=== PATIENT | male | born 1950 | race Caucasian/White ===

== ENCOUNTER 2019-07-26 13:40 | Outpatient (CLI) | payer OTHER | END 2019-07-26 13:41 | disposition critical access hospital (66) | LOC: EMS 13:40 | PROVIDERS: ATTEND Surgery | DX: R50.9 Fever, unspecified (principal); R53.1 Weakness | CPT/HCPCS: A0425; A0429 ==

== ENCOUNTER 2019-07-26 14:13 | Inpatient (IN) | payer OTHER ==
[2019-07-26] MEDS ORDERED: ACETAMINOPHEN 325 MG TABLET PO STA (14:24)
--- NOTE | 2019-07-26 14:25 | ED Physician Documentation ---
History of Present Illness - Stated complaint Stated Complaint: FLU LIKE SX - History obtained from History obtained from: Patient (69-year-old gentleman with history of multiple myeloma and bladder cancer on long-term oral chemotherapy and steroids presents with a febrile illness. Per paramedics his whole family has been sick with a flulike or viral syndrome. He is a vague historian, is not sure whether he got sick yesterday or the day before. He denies any specific complaints other than chills. However he is not fully oriented. His is not here in initial evaluation but coffee sommelier tells me she is coming.) Review of Systems Unable to obtain: Confused PD PAST MEDICAL HISTORY - Allergies Allergies/Adverse Reactions: Allergies Allergy/AdvReac Type Severity Reaction Status Date / Time Sulfa (Sulfonamide Allergy Unknown Verified 07/26/19 14:23 Antibiotics) PD ED PE NORMAL - Vitals Vital signs reviewed: Yes - General General: Other (He is alert and oriented to person and place but not time or events.) - HEENT HEENT: PERRL, EOMI - Neck Neck: Supple, no meningeal sign, No bony TTP - Cardiac Cardiac: RRR, No murmur - Respiratory Respiratory: Other (Rhonchorous at the left base, nonlabored) - Abdomen Abdomen: Soft, Non tender - Back Back: No CVA TTP, No spinal TTP - Derm Derm: Normal color, Warm and dry - Extremities Extremities: Other (Moderate bilateral chronic appearing pedal edema, symmetric) - Neuro Neuro: No motor deficit, No sensory deficit Eye Opening: Spontaneous Motor: Obeys Commands Verbal: Confused GCS Score: 14 Results - Vitals Vitals: Vital Signs - 24 hr 07/26/19 07/26/19 07/26/19 14:23 14:26 14:56 Temperature 38.6 C H 38.6 C H 38.3 C H Heart Rate 94 94 88 Respiratory 14 14 16 Rate Blood Pressure 129/112 H 124/112 H 130/70 O2 Saturation 92 92 88 L 07/26/19 07/26/19 15:26 15:30 Temperature Heart Rate 88 86 Respiratory 16 16 Rate Blood Pressure 130/70 113/76 O2 Saturation 94 93 Oxygen O2 Source Nasal cannula Oxygen Flow Rate 2 - Labs Labs: Laboratory Tests 07/26/19 07/26/19 07/26/19 14:52 14:52 14:52 WBC 5.3 RBC 3.95 L Hgb 13.3 L Hct 38.7 L MCV 98.0 H MCH 33.7 H MCHC 34.4 RDW 13.9 Plt Count 54 L MPV 12.9 H Neut # (Auto) 4.3 Lymph # (Auto) 0.5 L [place] # (Auto) 0.5 Eos # (Auto) 0.0 Baso # (Auto) 0.0 Absolute Nucleated RBC 0.00 Nucleated RBC % 0.0 BUN 17 Creatinine 0.9 Estimated GFR (MDRD) 83 L Lactic Acid 3.6 H* Total Bilirubin 1.1 H AST 27 ALT 30 Alkaline Phosphatase 32 L Total Protein 7.0 Albumin 4.2 Globulin 2.8 Albumin/Globulin Ratio 1.5 Lipase 31 - Rads (name of study) 2v chest Radiology: EMP read contemporaneously (Right basilar nodular opacity probably consistent with pneumonia, follow-up advised.) PD MEDICAL DECISION MAKING - ED course ED course: 69-year-old gentleman presents modestly confused with clinical findings consistent with pneumonia, proven on chest x-ray. Also had some episodes of hypoxemia down to 88% on room air here. He was cultured up and given Rocephin and Zithromax. Spoke with Dr. Valente for admission at 3:30 PM. Departure - Departure Disposition: 66 [facility] DC/Xfer Clinical Impression: Pneumonia Qualifiers: Pneumonia type: due to unspecified organism Laterality: right Lung location: lower lobe of lung Qualified Code(s): J18.9 - Pneumonia, unspecified organism Condition: Serious
--- NOTE | 2019-07-26 14:55 | XRAY Report ---
Reason: cough fever Procedure Date: 07/26/2019 Accession Number: [id number] / [id number] Procedure: XR - Chest 2 View X-Ray CPT Code: 97913 Final Report FULL RESULT: EXAM: CHEST RADIOGRAPHY EXAM DATE: 07/26/2019 02:45 PM. CLINICAL HISTORY: Cough fever. COMPARISON: None. TECHNIQUE: 2 views. FINDINGS: Lungs/Pleura: Right medial basilar lung 0.7 cm nodular opacity seen. Surrounding airspace consolidation noted. Left lung is clear. No pleural effusion or pneumothorax. Mediastinum: Heart and mediastinal contours are unremarkable. Other: None. IMPRESSION: 1. Right basilar nodular opacity with surrounding consolidation may reflect pneumonia. Follow-up to radiographic resolution is recommended to exclude the possibility that the nodular opacity is malignancy. RADIA
[2019-07-26] MEDS ORDERED: cefTRIAXone 2 GM in SODIUM CHLORIDE 0.9% MINIBAG 100 ML IV STA (14:58)
[2019-07-26] MEDS ORDERED: AZITHROMYCIN INJ 500 MG in SODIUM CHLORIDE 0.9% 250 ML IV STA (14:58)
[2019-07-26 15:03] LABS: BASOPHILS % (AUTO) 0.2 %; EOSINOPHILS % (AUTO) 0.2 %; HGB - HEMOGLOBIN 13.3 g/dL (14.0-18.0); LYMPHOCYTES # (AUTO) 0.5 10^3/uL (1.5-3.5); LYMPHOCYTES % (AUTO) 9.6 %; MEAN CORPUSCULAR HEMOGLOBIN 33.7 pg (27.0-31.0); MEAN CORPUSCULAR HGB CONC 34.4 g/dL (32.0-36.0); MEAN PLATELET VOLUME 12.9 fL (7.4-11.4); MONOCYTES # (AUTO) 0.5 10^3/uL (0.0-1.0); MONOCYTES % (AUTO) 8.6 %; NEUTROPHILS # (AUTO) 4.3 10^3/uL (1.5-6.6); NEUTROPHILS % (AUTO) 80.7 %; PLT - PLATELET COUNT 54 10^3/uL (130-450); RED BLOOD COUNT 3.95 10^6/uL (4.70-6.10); RED CELL DISTRIBUTION WIDTH 13.9 % (12.0-15.0); WHITE BLOOD COUNT 5.3 x10^3/uL (4.8-10.8)
[2019-07-26 15:14] LABS: ALBUMIN 4.2 g/dL (3.2-5.5); ALBUMIN/GLOBULIN RATIO 1.5 (1.0-2.2); BILIRUBIN,TOTAL 1.1 mg/dL (0.2-1.0); CREATININE 0.9 mg/dL (0.6-1.2)
[2019-07-26] MEDS ORDERED: LACTATED RINGERS IV STA (15:25)
[2019-07-26] MEDS ORDERED: ONDANSETRON 4 MG/2 ML VIAL IVP PRN (15:32)
[2019-07-26] MEDS ORDERED: SODIUM CHLORIDE FLUSH 0.9% 10 ML SYRINGE IVP PRN (15:32)
[2019-07-26] MEDS ORDERED: ACETAMINOPHEN 325 MG TABLET PO PRN (15:32)
[2019-07-26 15:38] LABS: CALCIUM 9.2 mg/dL (8.5-10.3)
[2019-07-26] MEDS ORDERED: IOVERSOL 320 100 ML VIAL IVP ONE ×2 (15:53→17:47)
--- NOTE | 2019-07-26 16:01 | HISTORY & PHYSICAL EXAMINATION ---
Chief Complaint - Chief Complaint Chief Complaint: fever and chill History of Present Illness - History of Present Illness HPI Comment/Other: Mr. Tripp is a 69-year-old gentleman with a PMH significant for multiple myeloma, bladder cancer on long-term oral chemotherapy and steroids, who presents ER complain fever and chill. pt is poor historian. His is at the bedside now. she report his whole family has been sick with a flulike or viral syndrome. pt begun fever and chill at today morning with mild cough. she report recently pt's appetite is poor, not drink much as well. she state pt is on the third week chemotherapy for is his multiple myeloma. His oncologist is at [facility]. pt was found to have bladder cancer about 25 yrs ago. pt is on the remission of bladder caner for cough years per his report. pt took water-pill HCTZ for his bilateral lower extremity edema. pt denies he has diabetes. pt denies chest pain, shortness of breath, abdominal pain, nausea, vomiting, diarrhea, headache, vision, dysuria or hematuria, focal neurological deficit. CXR reveals right basilar nodular opacity surrounding consolidation may reflect pneumonia. CT of chest reveals masslike densities in the right lower lobe, most likely neoplastic, questionable lesion of left L2 vertebral body. pt also was found fever at 38.6 degree at ER, pt require 2 liter of O2 supplement to remain 94% sats. pt was admitted for above medical reason. History - Past Medical History MRSA Hx?: No Other Past Medical History: Bladder CA - Family & Social History Family History Comment/Other: pt is confused, can not provide Meds/Allgy - Home Medications Home Medications: Ambulatory Orders Medication Instructions Recorded Confirmed Acyclovir [Zovirax] 400 mg PO BID 07/26/19 07/26/19 Aspirin [Aspirin EC] 81 mg PO DAILY 07/26/19 07/26/19 Chlorthalidone 50 mg PO DAILY 07/26/19 07/26/19 Citalopram Hydrobromide 20 mg PO DAILY 07/26/19 07/26/19 [Citalopram HBr] Docusate Sodium [Dss] 250 mg PO DAILY 07/26/19 07/26/19 Multivitamin [Theragran] 1 each PO DAILY 07/26/19 07/26/19 Trazodone HCl 100 mg PO QPM 07/26/19 07/26/19 dexAMETHasone [Decadron] 40 mg PO Q7D 07/26/19 07/26/19 - Allergies Allergies/Adverse Reactions: Allergies Allergy/AdvReac Type Severity Reaction Status Date / Time Sulfa (Sulfonamide Allergy Severe Unknown Verified 07/26/19 16:17 Antibiotics) Review of Systems - Constitutional Constitutional: reports: Fatigue, Fever, Chills, Poor appetite. denies: Diaphoresis - Eyes Eyes: denies: Pain, Blurred vision, Vision loss - Ears, Nose & Throat Ears, Nose & Throat: denies: Ear pain, Vertigo, Nosebleeds Exam - Vital Signs Vital Signs: Vital Signs x48h Temp Pulse Resp BP Pulse Ox 07/26/19 15:30 86 16 113/76 93 07/26/19 15:26 88 16 130/70 94 07/26/19 14:56 38.3 C H 88 16 130/70 88 L 07/26/19 14:26 38.6 C H 94 14 124/112 H 92 07/26/19 14:23 38.6 C H 94 14 129/112 H 92 Sepsis Event Note (H) - Evaluation Current Stage of Sepsis: Sepsis Possible source of Sepsis: positive: Pulmonary - Sepsis Criteria Sepsis Criteria: Recorded Temperature greater than 38.3C or Less than 36C, Recorded Heart Rate greater than 90 bpm, Metabolic: lactate > 2 mmol/L Conclusion/Plan - Problem List (1) Sepsis Conclusion/Plan: Pt present fever, and chill. Lactic acid is 3.6, CXR reveals right basilar pneumonia. it indicate pt has sepsis, from PNA Plan: IVF of NS, recheck lactic acid antibiotics: Azithyromycin and Rocephin vital monitor closely (2) Pneumonia Conclusion/Plan: CXR reveals pneumonia. pt is on chemotherapy and steroid for his MM and bladder cancer. he is high risk for getting infection treat with antibiotics supplement of O2 PRN Qualifiers: Pneumonia type: due to unspecified organism Laterality: right Lung location: lower lobe of lung Qualified Code(s): J18.9 - Pneumonia, unspecified organism (3) Hypokalemia Conclusion/Plan: pt has potassium 2.9. replacement of IV of 4 bag of potassium and PO of potassium 20 meq lab monitor (4) Mass of right lung Conclusion/Plan: CT of chest reveals masslike densities in the right lower lobe, most likely neoplastic. I discussed the finding with pt's , since pt is some confused. advise pt followup PCP and hydroelectric plant structural engineer as out-pt for further management. pt's understood, and she will do for pt. (5) Multiple myeloma Conclusion/Plan: pt is treatment for his MM, will ask pt bring his chemotherapy advise pt followup his oncologist as out-pt (6) Bladder cancer Conclusion/Plan: pt is no treatment for his bladder cancer, likely on remission. advise pt followup his oncologist as out-pt (7) HTN (hypertension) Conclusion/Plan: stable, will resume home meds. vital monitor (8) Bilateral lower extremity edema Conclusion/Plan: pt has normal kidney function, but unknown pt's heart condition, order ECHO. it can also be caused by pt's metastatic MM. pt's lower extremities have no tenderness, erythema or pain. it is unlikely to have DVT at this point. resume pt's home HCTZ. precaution of hydration for fluids overloaded. rise of lower extremities (9) Full code status Conclusion/Plan: pt and pt's request full code - Lab Results Fish Bones: 07/26/19 14:52 07/26/19 14:52 Core Measures - Anticipated LOS I expect patient to be DC'd or transferred within 96 hours.: Yes - DVT/VTE - Prophylaxis VTE/DVT Device ordered at admit?: Yes VTE/DVT Prophylaxis med ordered at admit?: Yes
[2019-07-26 16:20] LABS: HB2 TOTAL 13.5 g/dL; HEMOGLOBIN A1C 0.66 g/dL; HEMOGLOBIN A1C % 6.6 % (4.6-6.2)
--- NOTE | 2019-07-26 16:47 | CT Report ---
Reason: nodule in CXR, malignancy? Procedure Date: 07/26/2019 Accession Number: [id number] / [id number] Procedure: CT - CHEST W CPT Code: Final Report FULL RESULT: EXAM: CT CHEST EXAM DATE: 07/26/2019 04:13 PM. CLINICAL HISTORY: Nodule in CXR, malignancy?. COMPARISONS: CHEST 2 VIEW 07/26/2019 2:34 PM. TECHNIQUE: Routine helical CT imaging was performed through the chest. IV contrast: 80 cc Optiray 320. Reconstructions: Coronal and sagittal. In accordance with CT protocol optimization, one or more of the following dose reduction techniques were utilized for this exam: automated exposure control, adjustment of mA and/or KV based on patient size, or use of iterative reconstructive technique. FINDINGS: Lungs/Pleura: These images confirm a right medial posterior lower lobe nodular density measuring about 2.6 x 2.3 cm on series 6 image 66, with a larger region of consolidation or mass in the posterior sulcus measuring roughly 6 x 3 cm on image 78. Mild bibasilar atelectasis. Otherwise clear. No effusion or pneumothorax. Mediastinum: Normal heart size. No pericardial effusion. Scant coronary artery calcification. No lymphadenopathy. Mild dilation of main pulmonary artery measuring 3.4 cm, compatible with pulmonary artery hypertension. Bones: Degenerative changes. Questionable lytic lesion versus cyst in left L2 vertebral body and pedicle, incompletely seen. Visualized Abdomen: Small gallstones. Other: None. IMPRESSION: 1. Masslike densities in the right lower lobe, most likely neoplastic. Rounded atelectasis and inflammatory disease not completely excluded; clinical correlation is recommended. If presentation is typical for infection, follow-up may be helpful to confirm complete resolution; if presentation is not typical, further evaluation with PET CT scan or biopsy is recommended, per Fleischner Society guidelines. 2. Questionable lesion of left L2 vertebral body; further imaging with MR scan or whole-body radionuclear bone scan may be helpful. 3. Cholelithiasis and other chronic or incidental findings. RADIA
[2019-07-26] MEDS ORDERED: hydrALAZINE INJ 20 MG/ML VIAL IVP PRN (17:18)
[2019-07-26] MEDS: POTASSIUM CHLOR 10 MEQ/100 ML 10 MEQ/100 ML BAG IV SCH ×4 (17:52→21:13)
[2019-07-26] MEDS ORDERED: SODIUM CHLORIDE 0.9% 1,000 ML IV SCH ×2 (18:00→19:00)
[2019-07-26] MEDS ORDERED: POTASSIUM CHLORIDE 20 MEQ TABLET PO ONE (18:00)
[2019-07-26] MEDS: traZODone 50 MG TABLET PO SCH (20:54)
[2019-07-26] MEDS: FAMOTIDINE 20 MG TABLET PO SCH (20:55)
[2019-07-26] MEDS: oxyCODONE 5 MG TABLET PO PRN (20:55)
[2019-07-26 22:05] LABS: BILIRUBIN,URINE NEGATIVE (NEGATIVE); GLUCOSE, URINE (UA) 100 mg/dL (NEGATIVE); KETONES,URINE (UA) NEGATIVE (NEGATIVE); LEUKOCYTE ESTERASE, URINE NEGATIVE (NEGATIVE); NITRITE,URINE NEGATIVE (NEGATIVE); OCCULT BLOOD,URINE NEGATIVE (NEGATIVE); PH,URINE 7.5 PH (5.0-7.5); PROTEIN,URINE NEGATIVE (NEGATIVE); UROBILINOGEN,URINE 0.2 (NORMAL) E.U./dL (NORMAL)
[2019-07-26 22:09] LABS: CLARITY,URINE CLEAR (CLEAR)
[2019-07-27] MEDS: SODIUM CHLORIDE FLUSH 0.9% 10 ML SYRINGE IVP SCH ×3 (01:21→16:50)
[2019-07-27 05:02] LABS: BASOPHILS % (AUTO) 0.4 %; EOSINOPHILS # (AUTO) 0.1 10^3/uL (0.0-0.7); EOSINOPHILS % (AUTO) 1.1 %; HGB - HEMOGLOBIN 11.3 g/dL (14.0-18.0); LYMPHOCYTES # (AUTO) 0.7 10^3/uL (1.5-3.5); LYMPHOCYTES % (AUTO) 12.3 %; MEAN CORPUSCULAR HEMOGLOBIN 33.1 pg (27.0-31.0); MEAN CORPUSCULAR HGB CONC 33.6 g/dL (32.0-36.0); MEAN CORPUSCULAR VOLUME 98.5 fL (80.0-94.0); MEAN PLATELET VOLUME 12.5 fL (7.4-11.4); MONOCYTES # (AUTO) 0.6 10^3/uL (0.0-1.0); NEUTROPHILS # (AUTO) 4.3 10^3/uL (1.5-6.6); NEUTROPHILS % (AUTO) 75.7 %; PLT - PLATELET COUNT 47 10^3/uL (130-450); RED BLOOD COUNT 3.41 10^6/uL (4.70-6.10); RED CELL DISTRIBUTION WIDTH 14.1 % (12.0-15.0); WHITE BLOOD COUNT 5.7 x10^3/uL (4.8-10.8)
[2019-07-27 05:15] LABS: ALBUMIN 3.3 g/dL (3.2-5.5); ALBUMIN/GLOBULIN RATIO 1.6 (1.0-2.2); BILIRUBIN,TOTAL 0.9 mg/dL (0.2-1.0); CALCIUM 8.6 mg/dL (8.5-10.3); CREATININE 0.7 mg/dL (0.6-1.2); MAGNESIUM 1.9 mg/dL (1.7-2.8); TOTAL PROTEIN 5.4 g/dL (6.7-8.2)
[2019-07-27] MEDS ORDERED: POTASSIUM CHLORIDE 20 MEQ TABLET PO ONE ×2 (05:52→12:26)
[2019-07-27] MEDS: POTASSIUM CHLOR 10 MEQ/100 ML 10 MEQ/100 ML BAG IV SCH ×5 (06:50→15:04)
[2019-07-27] MEDS: MULTIVITAMIN TABLET PO SCH (08:06)
[2019-07-27] MEDS: SACCHAROMYCES BOULARDII 250 MG CAPSULE PO SCH ×2 (08:06→16:50)
[2019-07-27] MEDS: FAMOTIDINE 20 MG TABLET PO SCH ×2 (08:06→20:03)
[2019-07-27] MEDS: ASPIRIN EC 81 MG TABLET PO SCH (08:07)
[2019-07-27] MEDS: cefTRIAXone 2 GM in SODIUM CHLORIDE 0.9% MINIBAG 100 ML IV SCH (08:07)
[2019-07-27] MEDS: oxyCODONE 5 MG TABLET PO PRN ×3 (08:22→20:03)
[2019-07-27] MEDS ORDERED: CHLORTHALIDONE 25 MG TABLET PO SCH (09:00)
[2019-07-27] MEDS ORDERED: ENOXAPARIN 40 MG/0.4 ML SYRINGE SUBQ SCH (09:00)
[2019-07-27] MEDS: AZITHROMYCIN INJ 500 MG in SODIUM CHLORIDE 0.9% 250 ML IV SCH (09:50)
--- NOTE | 2019-07-27 12:28 | PROVIDER PROGRESS NOTE ---
Assessment/Plan - Problem List (1) Sepsis Assessment/Plan: 07/27 pt report he feel much better today. pt is alert and oriented plus 3 today. pt has no more fever, chill. lactic acid is down to normal blood culture is still pending continue antibiotics continue lab monitor, vital monitor Pt present fever, and chill. Lactic acid is 3.6, CXR reveals right basilar pneumonia. it indicate pt has sepsis, from PNA Plan: IVF of NS, recheck lactic acid antibiotics: Azithyromycin and Rocephin vital monitor closely (2) Pneumonia Conclusion/Plan: 07/27 improved. pt is off O2 supplement, has 94% sats today. continue to treat with antibiotics CXR reveals pneumonia. pt is on chemotherapy and steroid for his MM and bladder cancer. he is high risk for getting infection treat with antibiotics supplement of O2 PRN (3) Hypokalemia Conclusion/Plan: 07/27 pt is still hypokalemia, replacement and recheck again. now pt's potassium is upto 3.1, continue replacement. pt has potassium 2.9. replacement of IV of 4 bag of potassium and PO of potassium 20 meq lab monitor (4) Mass of right lung Conclusion/Plan: CT of chest reveals masslike densities in the right lower lobe, most likely neoplastic. I discussed the finding with pt's , since pt is some confused, advise pt followup PCP and load dropper as out-pt for further management. pt's understood, and she will do for pt. (5) Multiple myeloma Conclusion/Plan: pt is treatment for his MM, will ask pt bring his chemotherapy advise pt followup his oncologist as out-pt (6) Bladder cancer Conclusion/Plan: pt is no treatment for his bladder cancer, likely on remission. advise pt followup his oncologist as out-pt (7) HTN (hypertension) Conclusion/Plan: stable, will resume home meds. vital monitor (8) Bilateral lower extremity edema Conclusion/Plan: 07/27 slight better than yesterday, continue rise feet and treat with diuretics. ECHO is pending now. pt has normal kidney function, but unknown pt's heart condition, order ECHO. it can also be caused by pt's metastatic MM. pt's lower extremities have no tenderness, erythema or pain. it is unlikely to have DVT at this point. resume pt's home HCTZ. precaution of hydration for fluids overloaded. rise of lower extremities (2) Pneumonia Qualifiers: Pneumonia type: due to unspecified organism Laterality: right Lung locati on: lower lobe of lung Qualified Code(s): J18.9 - Pneumonia, unspecified organism - Current Meds Current Meds: Current Medications Generic Name Dose Route Start Last Admin Trade Name Freq PRN Reason Stop Dose Admin Aspirin 81 mg 07/27/19 09:00 07/27/19 08:07 Ecotrin PO 81 mg DAILY LISY Administration Chlorthalidone 50 mg 07/27/19 09:00 07/27/19 08:07 Chlorthalidone PO 50 mg DAILY LISY Administration Famotidine 20 mg 07/26/19 21:00 07/27/19 08:06 Pepcid PO 20 mg BID LISY Administration Azithromycin 500 mg/ Sodium 250 mls @ 250 mls/hr 07/27/19 09:00 07/27/19 10:50 Chloride IV 07/28/19 09:59 Infused DAILY LISY Infusion Ceftriaxone Sodium 2 gm/ 100 mls @ 200 mls/hr 07/27/19 09:00 07/27/19 08:37 Sodium Chloride IV Infused DAILY LISY Infusion Multivitamins 1 tab 07/27/19 09:00 07/27/19 08:06 Theragran PO 1 tab DAILY LISY Administration Oxycodone HCl 10 mg 07/26/19 19:32 07/27/19 08:22 Roxicodone PO 10 mg TID PRN Administration PAIN Saccharomyces Boulardii 250 mg 07/27/19 08:00 07/27/19 08:06 Florastor PO 250 mg BIDWM LISY Administration Sodium Chloride 10 ml 07/27/19 01:00 07/27/19 09:50 Normal Saline Flush 0.9% IVP 10 ml 0100,0900,1700 LISY Administration Trazodone HCl 100 mg 07/26/19 21:00 07/26/19 20:54 Desyrel PO 100 mg QPM LISY Administration - Lab Result Fish Bone Diagrams: 07/27/19 04:45 07/27/19 11:50 - Additional Planning My Orders: My Active Orders 07/26/19 15:32 Activity Orders [RC] Q2HR IO [RC] IOSHIFT Initiate Bowel Care Protocol [RC] .protocol Initiate Line Care Protocol [RC] QSHIFT Initiate Personal Care Protoco [RC] .protocol Oxygen Therapy [RC] Routine Telemetry- [RC] Q4HR Vital Signs [RC] 0800,1600,0000 Acetaminophen [Tylenol] 650 mg PO Q4HR PRN Ondansetron Inj [Zofran Inj] 4 mg IVP Q6HR PRN Sodium Chloride Flush 0.9% [Normal Saline Flush 0.9%] 10 ml IVP PRN PRN Code Status [OTHERS] Routine Condition of Patient [OTHERS] Routine DVT Prophylaxis [OTHERS] Routine 07/26/19 15:34 IV Insert [RC] .ONCE SCDs [RC] QSHIFT 07/26/19 16:21 Neuro Check [RC] QSHIFT 07/26/19 17:18 hydrALAZINE INJ [Apresoline Inj] 10 mg IVP QID PRN 07/26/19 21:00 Famotidine [Pepcid] 20 mg PO BID traZODone [Desyrel] 100 mg PO QPM 07/26/19 Dinner Regular Diet [DIET] 07/27/19 01:00 Sodium Chloride Flush 0.9% [Normal Saline Flush 0.9%] 10 ml IVP 0100,0900,1700 07/27/19 08:00 Saccharomyces Boulardii [Florastor] 250 mg PO BIDWM 07/27/19 09:00 Aspirin EC [Ecotrin] 81 mg PO DAILY Azithromycin Inj [Zithromax Inj] 500 mg Sodium Chloride 0.9% [Normal Saline 0.9%] 250 ml IV DAILY Chlorthalidone 50 mg PO DAILY Multivitamin [Theragran] 1 tab PO DAILY cefTRIAXone [Rocephin] 2 gm Sodium Chloride 0.9% Minibag [Normal Saline 0.9% Minibag] 100 ml IV DAILY 07/27/19 10:40 Miscellaenous Nursing Order [RC] PRN 07/27/19 17:56 Echo Transthoracic Complete [ECHO] Routine 07/28/19 05:00 CBC - COMP BLD CT W/AUTO DIFF [HEME] DAILYLAB CMP [COMPREHENSIVE METABOLIC PANEL] [CHEM] DAILYLAB 07/29/19 05:00 CBC - COMP BLD CT W/AUTO DIFF [HEME] DAILYLAB CMP [COMPREHENSIVE METABOLIC PANEL] [CHEM] DAILYLAB 07/30/19 05:00 CBC - COMP BLD CT W/AUTO DIFF [HEME] DAILYLAB CMP [COMPREHENSIVE METABOLIC PANEL] [CHEM] DAILYLAB 07/31/19 05:00 CBC - COMP BLD CT W/AUTO DIFF [HEME] DAILYLAB CMP [COMPREHENSIVE METABOLIC PANEL] [CHEM] DAILYLAB Subjective - Subjective Patient Reports: Feeling Better Objective Vital Signs: Vital Signs - 24 hr 07/26/19 07/26/19 07/26/19 14:23 14:26 14:56 Temperature 38.6 C H 38.6 C H 38.3 C H Heart Rate 94 94 88 Heart Rate [ Brachial] Respiratory 14 14 16 Rate Blood Pressure 129/112 H 124/112 H 130/70 Blood Pressure [Left Brachial artery] Blood Pressure [Right Brachial artery] O2 Saturation 92 92 88 L 07/26/19 07/26/19 07/26/19 15:26 15:30 16:00 Temperature 37.4 C Heart Rate 88 86 78 Heart Rate [ Brachial] Respiratory 16 16 14 Rate Blood Pressure 130/70 113/76 183/92 H Blood Pressure [Left Brachial artery] Blood Pressure [Right Brachial artery] O2 Saturation 94 93 95 07/26/19 07/26/19 07/26/19 16:30 17:00 17:19 Temperature 37.2 C Heart Rate 80 72 Heart Rate [ 76 Brachial] Respiratory 14 14 16 Rate Blood Pressure 180/90 H 130/54 L Blood Pressure 126/64 [Left Brachial artery] Blood Pressure [Right Brachial artery] O2 Saturation 94 94 95 07/26/19 07/27/19 07/27/19 20:29 00:00 05:10 Temperature 36.6 C 37.1 C 37.4 C Heart Rate Heart Rate [ 68 66 66 Brachial] Respiratory 15 18 18 Rate Blood Pressure Blood Pressure 111/53 L [Left Brachial artery] Blood Pressure 111/57 L 106/57 L [Right Brachial artery] O2 Saturation 97 95 96 07/27/19 07/27/19 08:00 11:24 Temperature 36.4 C L 36.6 C Heart Rate Heart Rate [ 98 69 Brachial] Respiratory 20 20 Rate Blood Pressure Blood Pressure [Left Brachial artery] Blood Pressure 111/55 L 121/64 [Right Brachial artery] O2 Saturation 93 94 Oxygen O2 Source Room air Oxygen Flow Rate 2 I&O (Last 24 Hrs): Intake and Output Totals x24h 07/25/19 07/26/19 07/27/19 23:59 23:59 23:59 Intake Total 4091.34 1870 Output Total 800 Balance 3291.34 1870 General: Alert, Oriented x3, No acute distress HEENT: Atraumatic, PERRLA, EOMI Neck: Supple Lymphatic: no adenopathy Neuro: Alert, Non Focal, Oriented Times 3 Cardiovascular: Regular rate, Normal S1, Normal S2 Respiratory: Chest non-tender, No respiratory distress, Breath sounds nml Abdomen: Normal bowel sounds, Soft Extremities: Normal pulses - Results Results: Laboratory Results WBC 5.7 x10^3/uL (4.8-10.8) 07/27/19 04:45 RBC 3.41 10^6/uL (4.70-6.10) L 07/27/19 04:45 Hgb 11.3 g/dL (14.0-18.0) L 07/27/19 04:45 Hct 33.6 % (42.0-52.0) L 07/27/19 04:45 MCV 98.5 fL (80.0-94.0) H 07/27/19 04:45 MCH 33.1 pg (27.0-31.0) H 07/27/19 04:45 MCHC 33.6 g/dL (32.0-36.0) 07/27/19 04:45 RDW 14.1 % (12.0-15.0) 07/27/19 04:45 Plt Count 47 10^3/uL (130-450) L 07/27/19 04:45 MPV 12.5 fL (7.4-11.4) H 07/27/19 04:45 Neut # (Auto) 4.3 10^3/uL (1.5-6.6) 07/27/19 04:45 Lymph # (Auto) 0.7 10^3/uL (1.5-3.5) L 07/27/19 04:45 [place] # (Auto) 0.6 10^3/uL (0.0-1.0) 07/27/19 04:45 Eos # (Auto) 0.1 10^3/uL (0.0-0.7) 07/27/19 04:45 Baso # (Auto) 0.0 10^3/uL (0.0-0.1) 07/27/19 04:45 Absolute Nucleated RBC 0.00 x10^3/uL 07/27/19 04:45 Nucleated RBC % 0.0 /100WBC 07/27/19 04:45 Sodium 139 mmol/L (135-145) 07/27/19 04:45 Potassium 3.1 mmol/L (3.5-5.0) L 07/27/19 11:50 Chloride 95 mmol/L (101-111) L 07/27/19 04:45 Carbon Dioxide 35 mmol/L (21-32) H 07/27/19 04:45 Anion Gap 9.0 (6-13) 07/27/19 04:45 BUN 16 mg/dL (6-20) 07/27/19 04:45 Creatinine 0.7 mg/dL (0.6-1.2) 07/27/19 04:45 Estimated GFR (MDRD) 111 (>89) 07/27/19 04:45 Glucose 144 mg/dL (70-100) H 07/27/19 04:45 Glycated Hemoglobin 6.6 % (4.6-6.2) H 07/26/19 14:52 Estim Average Glucose 143 (70-100) H 07/26/19 14:52 Lactic Acid 0.6 mmol/L (0.5-2.2) 07/27/19 06:00 Calcium 8.6 mg/dL (8.5-10.3) 07/27/19 04:45 Magnesium 1.9 mg/dL (1.7-2.8) 07/27/19 04:45 Total Bilirubin 0.9 mg/dL (0.2-1.0) 07/27/19 04:45 AST 14 IU/L (10-42) 07/27/19 04:45 ALT 21 IU/L (10-60) 07/27/19 04:45 Alkaline Phosphatase 23 IU/L (42-121) L 07/27/19 04:45 Total Protein 5.4 g/dL (6.7-8.2) L 07/27/19 04:45 Albumin 3.3 g/dL (3.2-5.5) 07/27/19 04:45 Globulin 2.1 g/dL (2.1-4.2) 07/27/19 04:45 Albumin/Globulin Ratio 1.6 (1.0-2.2) 07/27/19 04:45 Lipase 31 U/L (22-51) 07/26/19 14:52 Urine Color YELLOW 07/26/19 21:45 Urine Clarity CLEAR (CLEAR) 07/26/19 21:45 Urine pH 7.5 PH (5.0-7.5) 07/26/19 21:45 Ur Specific Junction 1.010 (1.002-1.030) 07/26/19 21:45 Urine Protein NEGATIVE mg/dL (NEGATIVE) 07/26/19 21:45 Urine Glucose (UA) 100 mg/dL (NEGATIVE) H 07/26/19 21:45 Urine Ketones NEGATIVE mg/dL (NEGATIVE) 07/26/19 21:45 Urine Occult Blood NEGATIVE (NEGATIVE) 07/26/19 21:45 Urine Nitrite NEGATIVE (NEGATIVE) 07/26/19 21:45 Urine Bilirubin NEGATIVE (NEGATIVE) 07/26/19 21:45 Urine Urobilinogen 0.2 (NORMAL) E.U./dL (NORMAL) 07/26/19 21:45 Ur Leukocyte Esterase NEGATIVE (NEGATIVE) 07/26/19 21:45 Ur Microscopic Review NOT INDICATED 07/26/19 21:45 Urine Culture Comments NOT INDICATED 07/26/19 21:45 Influenza A (Rapid) Negative (Negative) 07/26/19 14:43 Influenza B (Rapid) Negative (Negative) 07/26/19 14:43 Sepsis Event Note (H) - Evaluation Current Stage of Sepsis: Resolved Possible source of Sepsis: positive: Pulmonary - Sepsis Criteria Sepsis Criteria: Recorded Temperature greater than 38.3C or Less than 36C, Recorded Heart Rate greater than 90 bpm, Metabolic: lactate > 2 mmol/L ABX Reporting Has patient been on IV antibiotics over the past 48 hours?: Yes Current Medications - Current Medications Current Medications: Active Medications Acetaminophen (Tylenol) 650 mg PO Q4HR PRN PRN Reason: Pain 1 to 4 Aspirin (Ecotrin) 81 mg PO DAILY [facility] Last Admin: 07/27/19 08:07 Dose: 81 mg Chlorthalidone (Chlorthalidone) 50 mg PO DAILY [facility] Last Admin: 07/27/19 08:07 Dose: 50 mg Famotidine (Pepcid) 20 mg PO BID [facility] Last Admin: 07/27/19 08:06 Dose: 20 mg Hydralazine HCl (Apresoline Inj) 10 mg IVP QID PRN PRN Reason: Hypertensive Emergency Azithromycin 500 mg/ Sodium (Chloride) 250 mls @ 250 mls/hr IV DAILY [facility] Stop: 07/28/19 09:59 Last Infusion: 07/27/19 10:50 Dose: Infused Ceftriaxone Sodium 2 gm/ (Sodium Chloride) 100 mls @ 200 mls/hr IV DAILY [facility] Last Infusion: 07/27/19 08:37 Dose: Infused Potassium Chloride (Potassium Chloride) 10 meq in 100 mls @ 100 mls/hr IV Q1H [facility] Stop: 07/27/19 14:59 Multivitamins (Theragran) 1 tab PO DAILY [facility] Last Admin: 07/27/19 08:06 Dose: 1 tab Ondansetron HCl (Zofran Inj) 4 mg IVP Q6HR PRN PRN Reason: Nausea / Vomiting Oxycodone HCl (Roxicodone) 10 mg PO TID PRN PRN Reason: PAIN Last Admin: 07/27/19 08:22 Dose: 10 mg Saccharomyces Boulardii (Florastor) 250 mg PO BIDWM [facility] Last Admin: 07/27/19 08:06 Dose: 250 mg Sodium Chloride (Normal Saline Flush 0.9%) 10 ml IVP PRN PRN PRN Reason: NEEDED PER PROVIDER ORDERS Sodium Chloride (Normal Saline Flush 0.9%) 10 ml IVP 0100,0900,1700 [facility] Last Admin: 07/27/19 09:50 Dose: 10 ml Trazodone HCl (Desyrel) 100 mg PO QPM [facility] Last Admin: 07/26/19 20:54 Dose: 100 mg Acyclovir [Zovirax] 400 mg PO BID 07/26/19 Aspirin [Aspirin EC] 81 mg PO DAILY 07/26/19 Chlorthalidone 50 mg PO DAILY 07/26/19 Citalopram Hydrobromide [Citalopram HBr] 20 mg PO DAILY 07/26/19 Docusate Sodium [Dss] 250 mg PO DAILY 07/26/19 Multivitamin [Theragran] 1 each PO DAILY 07/26/19 Trazodone HCl 100 mg PO QPM 07/26/19 dexAMETHasone [Decadron] 40 mg PO Q7D 07/26/19 Carboxymethylcellulose Sodium [Restore Plus] 1 drops EACHEYE Q2H PRN 07/27/19 Ixazomib Citrate [Ninlaro] 4 mg PO Q7D 07/27/19 Lenalidomide [Revlimid] 25 mg PO DAILY 07/27/19 dilTIAZem HCl [Diltiazem 24Hr ER (Cd)] 360 mg PO DAILY 07/27/19
--- NOTE | 2019-07-27 12:30 | PHARMACY PROGRESS NOTE ---
- Best Possible Medication History Admit Date and Time: 07/26/19 1532 Processed by: Pharmacy Medication History completed: Yes Patient Interview: Completed Secondary Source(s): Prescription bottles, Spouse/Significant other, Physician records, Pharmacy records, Insurance records As the person ultimately responsible for medication therapy, providers are able to order a medication from an existing home medication list in [facility] via the "Reconcile Routine" prior to Confirmation of that medication by ground support equipment assembler. Such practice is discouraged except when the physician, in their clinical judgment, deems that a medical need exists for a medication without regard to previous use.
[2019-07-27] MEDS: traZODone 50 MG TABLET PO SCH (20:03)
[2019-07-28] MEDS: SODIUM CHLORIDE FLUSH 0.9% 10 ML SYRINGE IVP SCH ×2 (00:22→10:07)
[2019-07-28 06:12] LABS: BASOPHILS % (AUTO) 0.2 %; EOSINOPHILS # (AUTO) 0.2 10^3/uL (0.0-0.7); EOSINOPHILS % (AUTO) 4.5 %; HGB - HEMOGLOBIN 11.6 g/dL (14.0-18.0); LYMPHOCYTES # (AUTO) 0.6 10^3/uL (1.5-3.5); MEAN CORPUSCULAR HEMOGLOBIN 33.5 pg (27.0-31.0); MEAN CORPUSCULAR HGB CONC 33.5 g/dL (32.0-36.0); MONOCYTES # (AUTO) 0.6 10^3/uL (0.0-1.0); MONOCYTES % (AUTO) 11.6 %; NEUTROPHILS # (AUTO) 3.7 10^3/uL (1.5-6.6); NEUTROPHILS % (AUTO) 72.1 %; PLT - PLATELET COUNT 56 10^3/uL (130-450); RED BLOOD COUNT 3.46 10^6/uL (4.70-6.10); RED CELL DISTRIBUTION WIDTH 14.1 % (12.0-15.0); WHITE BLOOD COUNT 5.1 x10^3/uL (4.8-10.8)
[2019-07-28 06:20] LABS: ALBUMIN 3.2 g/dL (3.2-5.5); ALBUMIN/GLOBULIN RATIO 1.2 (1.0-2.2); BILIRUBIN,TOTAL 0.5 mg/dL (0.2-1.0); CALCIUM 8.7 mg/dL (8.5-10.3); CREATININE 0.7 mg/dL (0.6-1.2); TOTAL PROTEIN 5.8 g/dL (6.7-8.2)
[2019-07-28] MEDS ORDERED: POTASSIUM CHLORIDE 20 MEQ TABLET PO ONE (06:23)
[2019-07-28] MEDS ORDERED: POTASSIUM CHLORIDE 20 MEQ TABLET PO SCH (08:35)
[2019-07-28] MEDS ORDERED: SPIRONOLACTONE 25 MG TABLET PO SCH (09:00)
[2019-07-28] MEDS: AZITHROMYCIN INJ 500 MG in SODIUM CHLORIDE 0.9% 250 ML IV SCH (10:05)
[2019-07-28] MEDS: SACCHAROMYCES BOULARDII 250 MG CAPSULE PO SCH (10:06)
[2019-07-28] MEDS: ASPIRIN EC 81 MG TABLET PO SCH (10:07)
[2019-07-28] MEDS: FAMOTIDINE 20 MG TABLET PO SCH (10:07)
[2019-07-28] MEDS: oxyCODONE 5 MG TABLET PO PRN (10:07)
[2019-07-28] MEDS: MULTIVITAMIN TABLET PO SCH (10:08)
[2019-07-28] MEDS: cefTRIAXone 2 GM in SODIUM CHLORIDE 0.9% MINIBAG 100 ML IV SCH (11:49)
--- NOTE | 2019-07-28 12:01 | Discharge Plan ---
Discharge Plan Problem Reviewed?: Yes Disposition: Home, Self Care Condition: Poor Prescriptions: cefUROXime axetil [Ceftin] 500 mg PO Q12H #14 tablet Spironolactone [Aldactone] 25 mg PO DAILY #10 tablet Diet: Regular Activity Restrictions: Activity as Tolerated Shower Restrictions: No (fall precaution) Instruction Topics: Cefuroxime tablets, Spironolactone tablets, Pneumonia, Hyperkalemia Dc, Hypokalemia Dc Health Concerns: pneumonia, hypokalemia, and lung mass Plan of Treatment: you are at the risk to get infection since pt is chemotherapy. you are prescribed antibiotics to finish the treatment course. you present significant hypokalemia, your home HCTZ is hold now. new meds Spironolactone is prescribe to you. advise you followup your PCP to recheck BMP to monitor your potassium level in one week. you are found to have lung mass in your right lower lobe. advise you followup carpenter helper hardwood flooring for further management as out-pt Care Goals: stabilization and improvement of your medical conditions Assessment: discussed with you and your for care plan, you understood. Additional Instructions or Follow Up instructions: you may followup your PCP in one week and recheck your potassium level, followup your carpenter helper hardwood flooring as out-pt. Should your symptoms return or worsen, you may present ER or call 911 for help. No Smoking: If you smoke, Please STOP! Call for help.
--- NOTE | 2019-07-28 12:13 | DISCHARGE SUMMARY ---
Discharge Summary Admit Date: 07/26/19 Discharge Date: 07/28/19 Discharging Provider: DE LA O Condition at Discharge: Poor Discharge Disposition: 01 Home, Self Care Discharge Facility Name: home - DIAGNOSES Admission Diagnoses: (1) Sepsis (2) Pneumonia (3) Hypokalemia (4) Mass of right lung (5) Multiple myeloma (6) Bladder cancer (7) HTN (hypertension) (8) Bilateral lower extremity edema Discharge Diagnoses with Status of Each Condition: (1) Sepsis resolved. pt has no fever for 48 hours. blood culture is negative for bactere kathie. At the admission, pt had fever, respiratory distress, elevated lactic acid, and pneumonia. (2) Pneumonia stable. pt has 94% sats on room air. pt has no more fever for 48 hours. blood culture is negative for bacteremia. pt is prescribed antibiotics to finish the treatment course. (3) Hypokalemia stable/resolved. pt is prescribed Spironolactone. advise pt followup PCP to recheck BMP, potassium level in one week. (4) Mass of right lung CT of chest reveals mass at right lower lobe. I discussed the CT result with pt's , advise pt followup molder machine and his oncologist for further management. (5) Multiple myeloma stable. advise pt followup his oncologist for management (6) Bladder cancer stable. advise pt followup his oncologist for management (7) HTN (hypertension) stable (8) Bilateral lower extremity edema stable/improved. pt is prescribed Spironolactone. It is unclear the etiology of bilateral leg edema. Per pt report it is chronic condition. pt has hx of multiple myeloma, now he has lung mass. - HPI History of Present Illness: Mr. Tripp is a 69-year-old gentleman with a PMH significant for multiple myeloma, bladder cancer on long-term oral chemotherapy and steroids, who presents ER complain fever and chill. pt is poor historian. His is at the bedside now. she report his whole family has been sick with a flulike or viral syndrome. pt begun fever and chill at today morning with mild cough. she report recently pt's appetite is poor, not drink much as well. she state pt is on the third week chemotherapy for is his multiple myeloma. His oncologist is at [facility]. pt was found to have bladder cancer about 25 yrs ago. pt is on the remission of bladder caner for cough years per his report. pt took water-pill HCTZ for his bilateral lower extremity edema. pt denies he has diabetes. pt denies chest pain, shortness of breath, abdominal pain, nausea, vomiting, diarrhea, headache, vision, dysuria or hematuria, focal neurological deficit. CXR reveals right basilar nodular opacity surrounding consolidation may reflect pneumonia. CT of chest reveals masslike densities in the right lower lobe, most likely neoplastic, questionable lesion of left L2 vertebral body. pt also was found fever at 38.6 degree at ER, pt require 2 liter of O2 supplement to remain 94% sats. pt was admitted for above medical reason. - HOSPITAL COURSE Hospital Course: pt was admitted for fever, and elevated lactic acid. pt was found to have Sepsis, likely pneumonia is the sepsis recourse. pt was found to have pneumonia. CT of chest found pt had mass, most likely neoplastic at right lower lobe. Discussed CT finding with pt's . advise pt followup molder machine and oncologist for further management. pt was treated with antibiotics for pneumonia. after treatment, pt became afebrile for 48 hours. blood culture is negative for bacteremia. pt had 94% sat on room air after treatment. pt was hemodynamic stable when he was d/c. The detail hospital course is as the below. (1) Sepsis resolved. pt has no fever for 48 hours. blood culture is negative for bacteremia. At the admission, pt had fever, respiratory distress, elevated lactic acid, and pneumonia. (2) Pneumonia stable. pt has 94% sats on room air. pt has no more fever for 48 hours. blood culture is negative for bacteremia. pt is prescribed antibiotics to finish the treatment course. (3) Hypokalemia stable/resolved. pt is prescribed Spironolactone. advise pt followup PCP to recheck BMP, potassium level in one week. (4) Mass of right lung CT of chest reveals mass at right lower lobe. I discussed the CT result with pt's , advise pt followup molder machine and his oncologist for further management. (5) Multiple myeloma stable. advise pt followup his oncologist for management (6) Bladder cancer stable. advise pt followup his oncologist for management (7) HTN (hypertension) stable (8) Bilateral lower extremity edema stable/improved. pt is prescribed Spironolactone. It is unclear the etiology of bilateral leg edema. Per pt report it is chronic condition. pt has hx of multiple myeloma, now he has lung mass. - ALLERGIES Allergies/Adverse Reactions: Allergies Allergy/AdvReac Type Severity Reaction Status Date / Time Sulfa (Sulfonamide Allergy Severe Unknown Verified 07/26/19 16:17 Antibiotics) - MEDICATIONS Home Medications: Ambulatory Orders Medication Instructions Recorded Confirmed Acyclovir [Zovirax] 400 mg PO BID 07/26/19 07/26/19 Aspirin [Aspirin EC] 81 mg PO DAILY 07/26/19 07/26/19 Citalopram Hydrobromide 20 mg PO DAILY 07/26/19 07/26/19 [Citalopram HBr] Docusate Sodium [Dss] 250 mg PO DAILY 07/26/19 07/26/19 Multivitamin [Theragran] 1 each PO DAILY 07/26/19 07/26/19 Trazodone HCl 100 mg PO QPM 07/26/19 07/26/19 dexAMETHasone [Decadron] 40 mg PO Q7D 07/26/19 07/26/19 Carboxymethylcellulose Sodium 1 drops EACHEYE Q2H PRN 07/27/19 07/27/19 [Restore Plus] Ixazomib Citrate [Ninlaro] 4 mg PO Q7D 07/27/19 07/27/19 Lenalidomide [Revlimid] 25 mg PO DAILY 07/27/19 07/27/19 dilTIAZem HCl [Diltiazem 24Hr ER 360 mg PO DAILY 07/27/19 07/27/19 (Cd)] Spironolactone [Aldactone] 25 mg PO DAILY #10 tablet 07/28/19 cefUROXime axetil [Ceftin] 500 mg PO Q12H #14 tablet 07/28/19 - PHYSICAL EXAM AT DISCHARGE General Appearance: positive: No acute distress, Alert. negative: Lethargic Eyes Bilateral: positive: Normal inspection, PERRL, EOMI, No lid inflammation ENT: positive: ENT inspection nml, Pharynx nml, No signs of dehydration. negative: Purulent nasal drainage Neck: positive: Nml inspection, Thyroid nml, No JVD, Trachea midline. negative: Thyromegaly, Lymphadenopathy (R), Stiff neck, Tracheal deviation Respiratory: positive: Chest non-tender, No respiratory distress. negative: Wheezes, Rales, Rhonchi Cardiovascular: positive: Regular rate & rhythm, No murmur, No gallop. negative: Irregularly irregular, Extrasystoles, Tachycardia, Bradycardia, JVD present, Systolic murmur, Diastolic murmur Peripheral Pulses: positive: 2+ Abdomen: positive: Non-tender, No organomegaly, Nml bowel sounds, No distention. negative: Tenderness, Guarding, Rebound Back: positive: Nml inspection. negative: CVA tenderness (R), CVA tenderness (L) Skin: positive: Color nml, No rash, Warm, Dry. negative: Cyanosis, Diaphoresis, Pallor Extremities: positive: Non-tender, Full ROM, Nml appearance. negative: Calf tenderness, Cris's sign/cords Neurologic/Psychiatric: positive: Motor nml, Sensation nml, Mood/affect nml. negative: Weakness, Sensory loss, Facial droop, Slurred/abnml speech, Depressed mood/affect - LABS Result Diagrams: 07/28/19 05:45 07/28/19 05:45 - SEPSIS Current Stage of Sepsis: Resolved Possible source of Sepsis: Pulmonary Sepsis Criteria: Recorded Temperature greater than 38.3C or Less than 36C, Recorded Heart Rate greater than 90 bpm, Metabolic: lactate > 2 mmol/L - FOLLOW UP Follow Up: you are at the risk to get infection since pt is chemotherapy. you are prescribed antibiotics to finish the treatment course. you present significant hypokalemia, your home HCTZ is hold now. new meds Spironolactone is prescribe to you. advise you followup your PCP to recheck BMP to monitor your potassium level in one week. you are found to have lung mass in your right lower lobe. advise you followup molder machine for further management as out-pt you may followup your PCP in one week and recheck your potassium level, followup your oncologist and molder machine as out-pt. Should your symptoms return or worsen, you may present ER or call 911 for help. - TIME SPENT Time Spent in Discharge (Minutes): 50
[2019-07-28 13:21] VITALS: BP 124/64
== END 2019-07-28 14:30 | disposition home or self-care (01) | DRG 871 ==
LOC: ED 14:13 → MS2 15:32
PROVIDERS: ADMIT Nurse Practitioner Gerontology; ATTEND Nurse Practitioner Gerontology
DX: A41.9 Sepsis, unspecified organism (principal); J18.9 Pneumonia, unspecified organism; C90.00 Multiple myeloma not having achieved remission; E87.2 Acidosis; E87.6 Hypokalemia; R91.8 Other nonspecific abnormal finding of lung field; I10 Essential (primary) hypertension; R60.0 Localized edema; Z79.899 Other long term (current) drug therapy; Z79.52 Long term (current) use of systemic steroids; Z79.82 Long term (current) use of aspirin; Z85.51 Personal history of malignant neoplasm of bladder
CPT/HCPCS: 36415; 71046; 71260; 80053; 81003; 83036; 83605; 83690; 83735; 84132; 85025; 87040; 87275; 87276; 96365; 99285; A9270; J7120; Q9967; 81001; 87086

== ENCOUNTER 2020-08-12 10:17 | Inpatient (IN) | payer OTHER ==
--- NOTE | 2020-08-12 10:55 | ED Physician Documentation ---
PD HPI DYSPNEA - Stated complaint Stated Complaint: SOA - Chief complaint Chief Complaint: Resp - History obtained from History obtained from: Patient - History of Present Illness Timing - onset: How many days ago (3-4) Timing - onset during: Rest, Light activity (increasing dyspnea for few days, worse this morning just making coffee. No URI symptoms per se.) Timing - details: Gradual onset, Still present (worse today), Other (he has oximeter at home from pneumonia a year ago. He noted sats 77% RA this morning.) Inciting event(s): No: Out of meds, URI Improved by: Rest Associated symptoms: Wheezing, Bilateral edema (mild chronic). No: Fever, Cough, Chest pain / discomfort, Palpitations, Diaphoresis Similar symptoms before: Diagnosis (feels like pneumonia he had a year ago.) Recently seen: Not recently seen Review of Systems Constitutional: reports: Fatigue. denies: Fever, Chills, Myalgias Nose: denies: Rhinorrhea / runny nose, Congestion Throat: denies: Sore throat Cardiac: denies: Chest pain / pressure, Palpitations, Calf pain Respiratory: reports: Dyspnea, Wheezing. denies: Cough, Hemoptysis GI: denies: Abdominal Pain, Nausea, Vomiting, Diarrhea Skin: denies: Rash, Lesions Neurologic: reports: Generalized weakness. denies: Focal weakness, Numbness, Difficulty speaking, Near syncope PD PAST MEDICAL HISTORY - Past Medical History Cardiovascular: None Respiratory: Asthma Neuro: None Endocrine/Autoimmune: None Psych: Depression Musculoskeletal: Other (multiple myeloma) - Past Surgical History Past Surgical History: Yes - Present Medications Home Medications: Ambulatory Orders Medication Instructions Recorded Confirmed Acyclovir [Zovirax] 400 mg PO BID 07/26/19 08/12/20 Aspirin [Aspirin EC] 81 mg PO DAILY 07/26/19 08/12/20 Citalopram Hydrobromide 20 mg PO DAILY 07/26/19 08/12/20 [Citalopram HBr] Multivitamin [Theragran] 1 each PO DAILY 07/26/19 08/12/20 Trazodone HCl 100 mg PO QPM 07/26/19 08/12/20 dexAMETHasone [Decadron] 40 mg PO Q7D 07/26/19 08/12/20 Carboxymethylcellulose Sodium 1 drops EACHEYE Q2H PRN 07/27/19 08/12/20 [Restore Plus] Lenalidomide [Revlimid] 25 mg PO DAILY 07/27/19 08/12/20 dilTIAZem HCl [Diltiazem 24Hr ER 180 mg PO BID 07/27/19 08/12/20 (Cd)] Spironolactone [Aldactone] 25 mg PO DAILY #10 tablet 07/28/19 08/12/20 Ibuprofen 400 mg PO DAILY 08/12/20 08/12/20 oxyCODONE [Roxicodone] 10 mg PO TID PRN 08/12/20 08/12/20 - Allergies Allergies/Adverse Reactions: Allergies Allergy/AdvReac Type Severity Reaction Status Date / Time Sulfa (Sulfonamide Allergy Severe Unknown Verified 08/12/20 10:31 Antibiotics) - Social History Does the pt smoke?: No Smoking Status: Never smoker Does the pt drink ETOH?: No Does the pt have substance abuse?: No - Immunizations Immunizations are current?: Yes PD ED PE NORMAL - Vitals Vital signs reviewed: Yes - General General: Alert and oriented X 3, No acute distress (he is not appearing in distress. Unlabored breathing. But hypoxic, correctable with NC. ), Well developed/nourished - HEENT HEENT: Pharynx benign - Neck Neck: Supple, no meningeal sign, No adenopathy - Cardiac Cardiac: RRR, No murmur - Respiratory Respiratory: Clear bilaterally - Abdomen Abdomen: Soft, Non tender - Derm Derm: Normal color, Warm and dry, No rash - Extremities Extremities: No tenderness to palpate, Normal ROM s pain, No calf tenderness / cord, Other (minimal lower leg edema bilaterally. Not tender in calves. ) - Neuro Neuro: Alert and oriented X 3, No motor deficit, No sensory deficit Results - Vitals Vitals: Vital Signs - 24 hr 08/12/20 08/12/20 08/12/20 11:53 12:00 13:23 Heart Rate 96 97 91 Respiratory 16 19 24 Rate Blood Pressure 103/85 H 144/84 H O2 Saturation 90 L 93 Oxygen O2 Source Nasal cannula Oxygen Flow Rate 5 - EKG (time done) 10:46 Rate: Rate (enter#) (92) Rhythm: NSR [place]: Normal Intervals: Normal LA QRS: Poor R wave progression Ischemia: Normal ST segments. No: ST elevation c/w ischemia, ST depression Compare to prior EKG: Unchanged from prior EKG - Labs Labs: Laboratory Tests 08/12/20 08/12/20 08/12/20 10:52 10:52 10:52 WBC 4.4 L RBC 4.20 L Hgb 13.3 L Hct 40.7 L MCV 96.9 H MCH 31.7 H MCHC 32.7 RDW 14.8 Plt Count 152 MPV 10.0 Neut # (Auto) 2.8 Lymph # (Auto) 0.8 L [place] # (Auto) 0.7 Eos # (Auto) 0.0 Baso # (Auto) 0.0 Absolute Nucleated RBC 0.00 Nucleated RBC % 0.0 D-Dimer > 1050.0 H Sodium 139 Potassium 4.4 Chloride 101 Carbon Dioxide 27 Anion Gap 11.0 BUN 21 H Creatinine 0.8 Estimated GFR (MDRD) 95 Glucose 211 H Calcium 9.3 Total Bilirubin 0.7 AST 17 ALT 21 Alkaline Phosphatase 39 L Troponin I High Sens B-Natriuretic Peptide Total Protein 6.8 Albumin 4.0 Globulin 2.8 Albumin/Globulin Ratio 1.4 Lipase 33 Nasal Adenovirus (PCR) Nasal B. parapertussis DNA (PCR) Nasal Coronavir 229E PCR Nasal Coronavir HKU1 PCR Nasal Coronavir NL63 PCR Nasal Coronavir OC43 PCR Nasal Enterovir/Rhinovir PCR Nasal Influenza B PCR Nasal Influenza A PCR Nasal Parainfluen 1 PCR Nasal Parainfluen 2 PCR Nasal Parainfluen 3 PCR Nasal Parainfluen 4 PCR Nasal RSV (PCR) Nasal B.pertussis DNA PCR Nasal C.pneumoniae (PCR) Jhonatan Human Metapneumo PCR Nasal M.pneumoniae (PCR) Nasal SARS-CoV-2 (PCR) 08/12/20 08/12/20 08/12/20 10:52 10:52 11:30 WBC RBC Hgb Hct MCV MCH MCHC RDW Plt Count MPV Neut # (Auto) Lymph # (Auto) [place] # (Auto) Eos # (Auto) Baso # (Auto) Absolute Nucleated RBC Nucleated RBC % D-Dimer Sodium Potassium Chloride Carbon Dioxide Anion Gap BUN Creatinine Estimated GFR (MDRD) Glucose Calcium Total Bilirubin AST ALT Alkaline Phosphatase Troponin I High Sens 381.0 H* B-Natriuretic Peptide 47 Total Protein Albumin Globulin Albumin/Globulin Ratio Lipase Nasal Adenovirus (PCR) NOT DETECTED Nasal B. parapertussis DNA (PCR) NOT DETECTED Nasal Coronavir 229E PCR NOT DETECTED Nasal Coronavir HKU1 PCR NOT DETECTED Nasal Coronavir NL63 PCR NOT DETECTED Nasal Coronavir OC43 PCR NOT DETECTED Nasal Enterovir/Rhinovir PCR NOT DETECTED Nasal Influenza B PCR NOT DETECTED Nasal Influenza A PCR NOT DETECTED Nasal Parainfluen 1 PCR NOT DETECTED Nasal Parainfluen 2 PCR NOT DETECTED Nasal Parainfluen 3 PCR NOT DETECTED Nasal Parainfluen 4 PCR NOT DETECTED Nasal RSV (PCR) NOT DETECTED Nasal B.pertussis DNA PCR NOT DETECTED Nasal C.pneumoniae (PCR) NOT DETECTED Jhonatan Human Metapneumo PCR NOT DETECTED Nasal M.pneumoniae (PCR) NOT DETECTED Nasal SARS-CoV-2 (PCR) NOT DETECTED - Rads (name of study) chest xray Radiology: Prelim report reviewed, See rad report chest angio Radiology: Prelim report reviewed (multiple segmental emboli. some evidence heart strain. otherwise no change in rib/scapular lytic lesions compared to 2019.) PD MEDICAL DECISION MAKING - ED course Complexity details: reviewed results (CT showing several proximal emboli. No saddle embolus. Elevated trop suggestive heart strain from it. Hypoxic, but improved with NC. Will need further treatment and ECHO/eval in hospital. Meets admission criteria. ), re-evaluated patient, considered differential, d/w patient, d/w parts consultant Departure - Departure Disposition: 66 [facility] DC/Xfer Clinical Impression: Hypoxia Pulmonary emboli Qualifiers: Pulmonary embolism type: unspecified Chronicity: acute Acute cor pulmonale presence: unspecified Qualified Code(s): I26.99 - Other pulmonary embolism without acute cor pulmonale Multiple myeloma Qualifiers: Multiple myeloma remission status: unspecified Qualified Code(s): C90.00 - Multiple myeloma not having achieved remission Condition: Stable Record reviewed to determine appropriate education?: Yes Discharge Date/Time: 08/12/20 14:05
[2020-08-12] MEDS ORDERED: ALBUTEROL 1 PUFF INH STA (11:13)
[2020-08-12 11:28] LABS: BASOPHILS % (AUTO) 0.7 %; EOSINOPHILS % (AUTO) 0.7 %; HGB - HEMOGLOBIN 13.3 g/dL (14.0-18.0); LYMPHOCYTES # (AUTO) 0.8 10^3/uL (1.5-3.5); LYMPHOCYTES % (AUTO) 18.7 %; MEAN CORPUSCULAR HEMOGLOBIN 31.7 pg (27.0-31.0); MEAN CORPUSCULAR HGB CONC 32.7 g/dL (32.0-36.0); MEAN CORPUSCULAR VOLUME 96.9 fL (80.0-94.0); MONOCYTES # (AUTO) 0.7 10^3/uL (0.0-1.0); MONOCYTES % (AUTO) 16.7 %; NEUTROPHILS # (AUTO) 2.8 10^3/uL (1.5-6.6); NEUTROPHILS % (AUTO) 62.5 %; PLT - PLATELET COUNT 152 10^3/uL (130-450); RED CELL DISTRIBUTION WIDTH 14.8 % (12.0-15.0); WHITE BLOOD COUNT 4.4 x10^3/uL (4.8-10.8)
--- NOTE | 2020-08-12 11:41 | XRAY Report ---
PROCEDURE: Chest 1 View X-Ray INDICATIONS: Chest Pain TECHNIQUE: One view of the chest was acquired. COMPARISON: CT chest and CXR 07/26/2019. FINDINGS: Surgical changes and devices: None. Lungs and pleura: No pleural effusions or pneumothorax. Lungs are clear. Resolved opacity at the [facility] lung base last seen in 2019. Mediastinum: Mediastinal contours appear normal. Heart size is normal. Bones and chest wall: No suspicious bony lesions. Overlying soft tissues appear unremarkable. IMPRESSION: No acute cardiopulmonary abnormality. Reviewed by: González Granger MD on 08/12/2020 10:39 AM [facility] Approved by: González Granger MD on 08/12/2020 10:39 AM [facility] Station ID: [id number]
[2020-08-12 11:42] LABS: ALBUMIN/GLOBULIN RATIO 1.4 (1.0-2.2); BILIRUBIN,TOTAL 0.7 mg/dL (0.2-1.0); CALCIUM 9.3 mg/dL (8.5-10.3); CREATININE 0.8 mg/dL (0.6-1.2); TOTAL PROTEIN 6.8 g/dL (6.7-8.2)
[2020-08-12] MEDS ORDERED: IOVERSOL 320 100 ML VIAL IVP ONE ×2 (12:17→13:51)
[2020-08-12 12:33] LABS: C. PNEUMONIAE- RESP PCR PANEL NOT DETECTED
[2020-08-12] MEDS ORDERED: ENOXAPARIN 100 MG/ML SYRINGE SUBQ STA (13:13)
[2020-08-12] MEDS ORDERED: ACETAMINOPHEN 325 MG TABLET PO PRN (13:25)
[2020-08-12] MEDS ORDERED: ONDANSETRON ODT 4 MG TABLET TL PRN (13:25)
[2020-08-12] MEDS ORDERED: SODIUM CHLORIDE FLUSH 0.9% 10 ML SYRINGE IVP PRN (13:25)
[2020-08-12] MEDS ORDERED: ONDANSETRON 4 MG/2 ML VIAL IVP PRN (13:25)
--- NOTE | 2020-08-12 13:29 | CT Report ---
PROCEDURE: ANGIO CHEST W/WO INDICATIONS: dyspnea and hypoxia CONTRAST: IV CONTRAST: Optiray 320 ml: 80 PO CONTRAST: *NO PO CONTRAST TECHNIQUE: After the administration of intravenous contrast, 2 mm thick sections acquired from the pulmonary api noel to the posterior costophrenic angles. 3-dimensional maximum intensity projection (MIP) coronal a nd sagittal reformats were then acquired through the thorax. For radiation dose reduction, the follow ing was used: automated exposure control, adjustment of mA and/or kV according to patient size. COMPARISON: CXR earlier today. CT chest 07/26/2019. FINDINGS: Image quality: Good. Pulmonary arteries: Multiple segmental pulmonary emboli bilaterally. Portions of these emboli are in the distal aspects of the main pulmonary arteries. Embolic burden is moderate to severe. R/LV ratio: 1.2. This is suspicious for right heart strain. Lungs and pleura: Mild airspace opacity in the right lower lobe superior segment, (6/146), this is sl ightly increased compared to 2019 at this site. However, the airspace opacity at the right lung base is resolved. Airspace opacity at the left lung base is resolved. Mild motion artifact.. No pleural e ffusions or pneumothorax. Central and peripheral airways are patent. Mediastinum: Asymmetric elevation of the left hemidiaphragm, unchanged. Heart size is normal, withou t pericardial effusion. No mediastinal or hilar adenopathy. Thoracic aorta is normal in caliber and enhancement. Esophagus is normal in caliber, without hiatal hernia. Bones and chest wall: Expansile lytic lesion in the right scapula, (04/06) is not significant change c ompared to July 2019. T1 lucent lesion, (01/03), unchanged. Adjacent sclerosis in the right first rib. L2 vertebral body is outside the field of view. Prior right-sided rib fracture, unchanged. Brid ging anterior osteophytes. Unremarkable thyroid. No axillary or supraclavicular adenopathy. Abdomen: Visualized upper abdominal solid organs appear normal in the early arterial phase of enhanc ement. Gallstones. No adrenal nodule. IMPRESSION: 1. Multiple segmental pulmonary emboli bilaterally. Moderate to severe embolic burden. 2. RV/LV ratio 1.2. This is suspicious for right heart strain. 3. Small airspace opacity in the right lower lobe superior segment. This appears increased compared t o the prior exam. However, the other larger airspace opacities in the lower lobe seen on the prior ex am are resolved. This could be due to pneumonia, aspiration, or atelectasis/scarring 3. Expansile lytic lesion in the right scapula, T1, and sclerosis in the right first rib are unchange d in appearance since 2019. 4. Gallstones. Reviewed by: González Granger MD on 08/12/2020 12:28 PM [place] Approved by: González Granger MD on 08/12/2020 12:28 PM [id number] Station ID: [id number]
[2020-08-12 16:47] LABS: ABG HCO3 24.2 mmol/L (22.0-26.0); ABG OXYGEN SATURATION 91 % (94-98); ABG PCO2 38 mmHg (34-45); ABG PH 7.42 (7.35-7.45); ABG PO2 62 mmHg (80-100); ABG TCO2 25.4 MMOL/L (21.0-29.0); ALLEN TEST POSITIVE
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
[2020-08-12] MEDS: ENOXAPARIN 150 MG/ML SYRINGE SUBQ SCH (21:08)
[2020-08-12] MEDS: SODIUM CHLORIDE FLUSH 0.9% 10 ML SYRINGE IVP SCH (21:09)
[2020-08-12] MEDS: oxyCODONE 5 MG TABLET PO PRN (22:29)
[2020-08-13] MEDS: SODIUM CHLORIDE FLUSH 0.9% 10 ML SYRINGE IVP SCH ×3 (00:23→17:51)
[2020-08-13] MEDS: oxyCODONE 5 MG TABLET PO PRN ×3 (02:42→15:48)
[2020-08-13] MEDS ORDERED: traZODone 50 MG TABLET PO PRN (06:20)
[2020-08-13 08:43] LABS: BASOPHILS # (AUTO) 0.1 10^3/uL (0.0-0.1); BASOPHILS % (AUTO) 1.8 %; EOSINOPHILS % (AUTO) 1.2 %; LYMPHOCYTES # (AUTO) 0.8 10^3/uL (1.5-3.5); LYMPHOCYTES % (AUTO) 25.5 %; MEAN CORPUSCULAR HEMOGLOBIN 32.1 pg (27.0-31.0); MEAN CORPUSCULAR HGB CONC 33.3 g/dL (32.0-36.0); MEAN CORPUSCULAR VOLUME 96.3 fL (80.0-94.0); MONOCYTES # (AUTO) 0.7 10^3/uL (0.0-1.0); MONOCYTES % (AUTO) 22.5 %; NEUTROPHILS # (AUTO) 1.6 10^3/uL (1.5-6.6); NEUTROPHILS % (AUTO) 48.4 %; PLT - PLATELET COUNT 130 10^3/uL (130-450); RED BLOOD COUNT 4.05 10^6/uL (4.70-6.10); WHITE BLOOD COUNT 3.3 x10^3/uL (4.8-10.8)
[2020-08-13 08:50] LABS: CREATININE 0.8 mg/dL (0.6-1.2)
[2020-08-13] MEDS: ENOXAPARIN 150 MG/ML SYRINGE SUBQ SCH (09:10)
--- NOTE | 2020-08-13 10:19 | PROVIDER PROGRESS NOTE ---
Subjective - Prog Note Date Prog Note Date: 08/13/20 Prog Note Time: 10:14 - Subjective Pt reports feeling: Improved (He fells slightly better than he did yesterday.), No change Subjective: The patient is pleasantly eating breakfast with his upon entering the room. He says that wasn't able to fall asleep until around 0500. He usually takes trazodone to help him fall asleep but didn't take any last night. He became short of breath when after getting up to urinate last night, and when he bathed this morning. He experienced some brief chest pain with the shortness of breath this morning, rating it a 6/10. He remains on HHFNC 40 LPM 50%. Objective - Vital Signs/Intake & Output Vital Signs: Vital Signs x48h Temp Pulse Resp BP BP Pulse Ox 08/13/20 07:47 37.3 C 83 16 137/58 H 95 08/13/20 05:45 37.0 C 83 18 133/72 H 96 Intake & Output: Intake & Output 08/10/20 08/11/20 08/12/20 08/13/20 23:59 23:59 23:59 23:59 Intake Total 790 900 Output Total 275 Balance 790 625 - Objective General Appearance: positive: No acute distress, Alert Eyes Bilateral: positive: Normal inspection ENT: positive: Pharynx nml Neck: positive: Nml inspection Respiratory: positive: No respiratory distress, Breath sounds nml Cardiovascular: positive: Regular rate & rhythm, No murmur, No gallop Peripheral Pulses: 2+ Dorsalis pedis (R), 2+ Dorsalis pedis (L) Abdomen: positive: Non-tender Back: positive: Nml inspection Extremities: negative: Pedal edema, Calf tenderness Neurologic/Psychiatric: positive: Oriented x3, Mood/affect nml - Lab Results Fish Bones: 08/13/20 08:33 08/13/20 08:33 Other Labs: Lab Results x24hrs 08/13/20 08/13/20 08/13/20 Range/Units 08:33 08:33 08:33 WBC 3.3 L (4.8-10.8) x10^3/uL RBC 4.05 L (4.70-6.10) 10^6/uL Hgb 13.0 L (14.0-18.0) g/dL Hct 39.0 L (42.0-52.0) % MCV 96.3 H (80.0-94.0) fL MCH 32.1 H (27.0-31.0) pg MCHC 33.3 (32.0-36.0) g/dL RDW 15.0 (12.0-15.0) % Plt Count 130 (130-450) 10^3/uL MPV 10.0 (7.4-11.4) fL Neut # (Auto) 1.6 (1.5-6.6) 10^3/uL Lymph # (Auto) 0.8 L (1.5-3.5) 10^3/uL Grand # (Auto) 0.7 (0.0-1.0) 10^3/uL Eos # (Auto) 0.0 (0.0-0.7) 10^3/uL Baso # (Auto) 0.1 (0.0-0.1) 10^3/uL Absolute Nucleated RBC 0.00 x10^3/uL Nucleated RBC % 0.0 /100WBC D-Dimer (200.0-255.0) ng/mL Bld Gas Analysis Time Sample Site ABG pH (7.35-7.45) ABG pCO2 (34-45) mmHg ABG pO2 (80-100) mmHg ABG HCO3 (22.0-26.0) mmol/L ABG Total CO2 (21.0-29.0) MMOL/L ABG O2 Saturation (94-98) % ABG Oximetry Spot Check % ABG Base Excess (-2.0-3.0) mmol/L Carlos Test O2 Delivery Device O2 Liters/Min LPM Sodium 139 (135-145) mmol/L Potassium 3.8 (3.5-5.0) mmol/L Chloride 102 (101-111) mmol/L Carbon Dioxide 25 (21-32) mmol/L Anion Gap 12.0 (6-13) BUN 20 (6-20) mg/dL Creatinine 0.8 (0.6-1.2) mg/dL Estimated GFR (MDRD) 95 (>89) Glucose 155 H (70-100) mg/dL Calcium 9.0 (8.5-10.3) mg/dL Total Bilirubin (0.2-1.0) mg/dL AST (10-42) IU/L ALT (10-60) IU/L Alkaline Phosphatase (42-121) IU/L Troponin I High Sens 256.5 H* (2.3-19.7) ng/L B-Natriuretic Peptide (5-100) pg/mL Total Protein (6.7-8.2) g/dL Albumin (3.2-5.5) g/dL Globulin (2.1-4.2) g/dL Albumin/Globulin Ratio (1.0-2.2) Lipase (22-51) U/L Nasal Adenovirus (PCR) Nasal B. parapertussis DNA (PCR) Nasal Coronavir 229E PCR Nasal Coronavir HKU1 PCR Nasal Coronavir NL63 PCR Nasal Coronavir OC43 PCR Nasal Enterovir/Rhinovir PCR Nasal Influenza B PCR Nasal Influenza A PCR Nasal Parainfluen 1 PCR Nasal Parainfluen 2 PCR Nasal Parainfluen 3 PCR Nasal Parainfluen 4 PCR Nasal RSV (PCR) Nasal B.pertussis DNA PCR Nasal C.pneumoniae (PCR) Jhonatan Human Metapneumo PCR Nasal M.pneumoniae (PCR) Nasal SARS-CoV-2 (PCR) 08/12/20 08/12/20 08/12/20 Range/Units 16:35 11:30 10:52 WBC (4.8-10.8) x10^3/uL RBC (4.70-6.10) 10^6/uL Hgb (14.0-18.0) g/dL Hct (42.0-52.0) % MCV (80.0-94.0) fL MCH (27.0-31.0) pg MCHC (32.0-36.0) g/dL RDW (12.0-15.0) % Plt Count (130-450) 10^3/uL MPV (7.4-11.4) fL Neut # (Auto) (1.5-6.6) 10^3/uL Lymph # (Auto) (1.5-3.5) 10^3/uL Grand # (Auto) (0.0-1.0) 10^3/uL Eos # (Auto) (0.0-0.7) 10^3/uL Baso # (Auto) (0.0-0.1) 10^3/uL Absolute Nucleated RBC x10^3/uL Nucleated RBC % /100WBC D-Dimer (200.0-255.0) ng/mL Bld Gas Analysis Time 1639 Sample Site LEFT RADIAL ABG pH 7.42 (7.35-7.45) ABG pCO2 38 (34-45) mmHg ABG pO2 62 L (80-100) mmHg ABG HCO3 24.2 (22.0-26.0) mmol/L ABG Total CO2 25.4 (21.0-29.0) MMOL/L ABG O2 Saturation 91 L (94-98) % ABG Oximetry Spot Check 92 % ABG Base Excess 0.0 (-2.0-3.0) mmol/L Carlos Test POSITIVE O2 Delivery Device OXYMASK O2 Liters/Min 7.00 LPM Sodium (135-145) mmol/L Potassium (3.5-5.0) mmol/L Chloride (101-111) mmol/L Carbon Dioxide (21-32) mmol/L Anion Gap (6-13) BUN (6-20) mg/dL Creatinine (0.6-1.2) mg/dL Estimated GFR (MDRD) (>89) Glucose (70-100) mg/dL Calcium (8.5-10.3) mg/dL Total Bilirubin (0.2-1.0) mg/dL AST (10-42) IU/L ALT (10-60) IU/L Alkaline Phosphatase (42-121) IU/L Troponin I High Sens (2.3-19.7) ng/L B-Natriuretic Peptide 47 (5-100) pg/mL Total Protein (6.7-8.2) g/dL Albumin (3.2-5.5) g/dL Globulin (2.1-4.2) g/dL Albumin/Globulin Ratio (1.0-2.2) Lipase (22-51) U/L Nasal Adenovirus (PCR) NOT DETECTED Nasal B. parapertussis DNA (PCR) NOT DETECTED Nasal Coronavir 229E PCR NOT DETECTED Nasal Coronavir HKU1 PCR NOT DETECTED Nasal Coronavir NL63 PCR NOT DETECTED Nasal Coronavir OC43 PCR NOT DETECTED Nasal Enterovir/Rhinovir PCR NOT DETECTED Nasal Influenza B PCR NOT DETECTED Nasal Influenza A PCR NOT DETECTED Nasal Parainfluen 1 PCR NOT DETECTED Nasal Parainfluen 2 PCR NOT DETECTED Nasal Parainfluen 3 PCR NOT DETECTED Nasal Parainfluen 4 PCR NOT DETECTED Nasal RSV (PCR) NOT DETECTED Nasal B.pertussis DNA PCR NOT DETECTED Nasal C.pneumoniae (PCR) NOT DETECTED Jhonatan Human Metapneumo PCR NOT DETECTED Nasal M.pneumoniae (PCR) NOT DETECTED Nasal SARS-CoV-2 (PCR) NOT DETECTED 08/12/20 08/12/20 08/12/20 Range/Units 10:52 10:52 10:52 WBC (4.8-10.8) x10^3/uL RBC (4.70-6.10) 10^6/uL Hgb (14.0-18.0) g/dL Hct (42.0-52.0) % MCV (80.0-94.0) fL MCH (27.0-31.0) pg MCHC (32.0-36.0) g/dL RDW (12.0-15.0) % Plt Count (130-450) 10^3/uL MPV (7.4-11.4) fL Neut # (Auto) (1.5-6.6) 10^3/uL Lymph # (Auto) (1.5-3.5) 10^3/uL Grand # (Auto) (0.0-1.0) 10^3/uL Eos # (Auto) (0.0-0.7) 10^3/uL Baso # (Auto) (0.0-0.1) 10^3/uL Absolute Nucleated RBC x10^3/uL Nucleated RBC % /100WBC D-Dimer > 1050.0 H (200.0-255.0) ng/mL Bld Gas Analysis Time Sample Site ABG pH (7.35-7.45) ABG pCO2 (34-45) mmHg ABG pO2 (80-100) mmHg ABG HCO3 (22.0-26.0) mmol/L ABG Total CO2 (21.0-29.0) MMOL/L ABG O2 Saturation (94-98) % ABG Oximetry Spot Check % ABG Base Excess (-2.0-3.0) mmol/L Carlos Test O2 Delivery Device O2 Liters/Min LPM Sodium 139 (135-145) mmol/L Potassium 4.4 (3.5-5.0) mmol/L Chloride 101 (101-111) mmol/L Carbon Dioxide 27 (21-32) mmol/L Anion Gap 11.0 (6-13) BUN 21 H (6-20) mg/dL Creatinine 0.8 (0.6-1.2) mg/dL Estimated GFR (MDRD) 95 (>89) Glucose 211 H (70-100) mg/dL Calcium 9.3 (8.5-10.3) mg/dL Total Bilirubin 0.7 (0.2-1.0) mg/dL AST 17 (10-42) IU/L ALT 21 (10-60) IU/L Alkaline Phosphatase 39 L (42-121) IU/L Troponin I High Sens 381.0 H* (2.3-19.7) ng/L B-Natriuretic Peptide (5-100) pg/mL Total Protein 6.8 (6.7-8.2) g/dL Albumin 4.0 (3.2-5.5) g/dL Globulin 2.8 (2.1-4.2) g/dL Albumin/Globulin Ratio 1.4 (1.0-2.2) Lipase 33 (22-51) U/L Nasal Adenovirus (PCR) Nasal B. parapertussis DNA (PCR) Nasal Coronavir 229E PCR Nasal Coronavir HKU1 PCR Nasal Coronavir NL63 PCR Nasal Coronavir OC43 PCR Nasal Enterovir/Rhinovir PCR Nasal Influenza B PCR Nasal Influenza A PCR Nasal Parainfluen 1 PCR Nasal Parainfluen 2 PCR Nasal Parainfluen 3 PCR Nasal Parainfluen 4 PCR Nasal RSV (PCR) Nasal B.pertussis DNA PCR Nasal C.pneumoniae (PCR) Jhonatan Human Metapneumo PCR Nasal M.pneumoniae (PCR) Nasal SARS-CoV-2 (PCR) 08/12/20 Range/Units 10:52 WBC 4.4 L (4.8-10.8) x10^3/uL RBC 4.20 L (4.70-6.10) 10^6/uL Hgb 13.3 L (14.0-18.0) g/dL Hct 40.7 L (42.0-52.0) % MCV 96.9 H (80.0-94.0) fL MCH 31.7 H (27.0-31.0) pg MCHC 32.7 (32.0-36.0) g/dL RDW 14.8 (12.0-15.0) % Plt Count 152 (130-450) 10^3/uL MPV 10.0 (7.4-11.4) fL Neut # (Auto) 2.8 (1.5-6.6) 10^3/uL Lymph # (Auto) 0.8 L (1.5-3.5) 10^3/uL Grand # (Auto) 0.7 (0.0-1.0) 10^3/uL Eos # (Auto) 0.0 (0.0-0.7) 10^3/uL Baso # (Auto) 0.0 (0.0-0.1) 10^3/uL Absolute Nucleated RBC 0.00 x10^3/uL Nucleated RBC % 0.0 /100WBC D-Dimer (200.0-255.0) ng/mL Bld Gas Analysis Time Sample Site ABG pH (7.35-7.45) ABG pCO2 (34-45) mmHg ABG pO2 (80-100) mmHg ABG HCO3 (22.0-26.0) mmol/L ABG Total CO2 (21.0-29.0) MMOL/L ABG O2 Saturation (94-98) % ABG Oximetry Spot Check % ABG Base Excess (-2.0-3.0) mmol/L Carlos Test O2 Delivery Device O2 Liters/Min LPM Sodium (135-145) mmol/L Potassium (3.5-5.0) mmol/L Chloride (101-111) mmol/L Carbon Dioxide (21-32) mmol/L Anion Gap (6-13) BUN (6-20) mg/dL Creatinine (0.6-1.2) mg/dL Estimated GFR (MDRD) (>89) Glucose (70-100) mg/dL Calcium (8.5-10.3) mg/dL Total Bilirubin (0.2-1.0) mg/dL AST (10-42) IU/L ALT (10-60) IU/L Alkaline Phosphatase (42-121) IU/L Troponin I High Sens (2.3-19.7) ng/L B-Natriuretic Peptide (5-100) pg/mL Total Protein (6.7-8.2) g/dL Albumin (3.2-5.5) g/dL Globulin (2.1-4.2) g/dL Albumin/Globulin Ratio (1.0-2.2) Lipase (22-51) U/L Nasal Adenovirus (PCR) Nasal B. parapertussis DNA (PCR) Nasal Coronavir 229E PCR Nasal Coronavir HKU1 PCR Nasal Coronavir NL63 PCR Nasal Coronavir OC43 PCR Nasal Enterovir/Rhinovir PCR Nasal Influenza B PCR Nasal Influenza A PCR Nasal Parainfluen 1 PCR Nasal Parainfluen 2 PCR Nasal Parainfluen 3 PCR Nasal Parainfluen 4 PCR Nasal RSV (PCR) Nasal B.pertussis DNA PCR Nasal C.pneumoniae (PCR) Jhonatan Human Metapneumo PCR Nasal M.pneumoniae (PCR) Nasal SARS-CoV-2 (PCR) ABX Reporting Has patient been on IV antibiotics over the past 48 hours?: No Assessment/Plan - Problem List (1) Pulmonary emboli Impression: Consulted with the doctor managing the patient's multiple myeloma, Dr. Fountain, regarding anticoagulation medication with concomitant use of revlimid, a medication that . He wants the patient to be anticoagulated with lovenox for a minimum of 48 hours before being transitioned to apixaban, and for revlimid to be withhled until he can schedule an appointment to reassess the patient's plan of care. Will order a venous doppler US to assess for DVT. Qualifiers: Pulmonary embolism type: unspecified Chronicity: acute Acute cor pulmonale presence: unspecified Qualified Code(s): I26.99 - Other pulmonary embolism without acute cor pulmonale (2) Hypoxia Impression: The patient is maintaining on oxygen saturation of 94-96% while on HHFNC 40LPM, FiO2 50%. (3) Multiple myeloma Impression: Per Dr. Fountain's recommendation, the patient will stop taking revlimid until he can schedule an appointment.
[2020-08-13] MEDS: APIXABAN 5 MG TABLET PO SCH ×2 (11:58→20:55)
[2020-08-13] MEDS: diltiaZEM CD 180 MG CAPSULE PO SCH ×2 (11:58→20:56)
[2020-08-13] MEDS: CITALOPRAM HYDROBROMIDE 20 MG TABLET PO SCH (11:58)
[2020-08-13] MEDS: CARBOXYMETHYLCELLULOSE OPHTH DROPS EACHEYE PRN (11:58)
--- NOTE | 2020-08-13 15:23 | Ultrasound Report ---
PROCEDURE: Duplex Ext Veins Bilateral INDICATIONS: MINDA SANZ TECHNIQUE: Real-time imaging, as well as color and pulse Doppler interrogation, were performed of the deep veins of both legs from the inguinal ligament to the popliteal fossa. COMPARISON: Prior CT pulmonary angiogram 08/12/2020 FINDINGS: The deep veins are normally compressible, and free of intraluminal thrombus. Color and pu lse Doppler demonstrate normal phasic intravascular flow. There is normal augmentation response to d istal compression maneuver. IMPRESSION: No DVT found bilaterally. Quality of visualization of the calf veins is somewhat limited and also of the distal superficial femoral vein on the left, due to patient body habitus. Reviewed by: Brooks Sheldon MD on 08/13/2020 3:22 PM PST Approved by: Brooks Sheldon MD on 08/13/2020 3:22 PM PST Station ID: [id number]
[2020-08-13] MEDS: traZODone 50 MG TABLET PO SCH (20:55)
[2020-08-13] MEDS: ACYCLOVIR 200 MG CAPSULE PO SCH (20:55)
[2020-08-13] MEDS ORDERED: TRAZODONE HCL 100 MG PO SCH (21:00)
[2020-08-14] MEDS: SODIUM CHLORIDE FLUSH 0.9% 10 ML SYRINGE IVP SCH ×3 (00:06→20:13)
[2020-08-14 06:04] LABS: BASOPHILS # (AUTO) 0.1 10^3/uL (0.0-0.1); BASOPHILS % (AUTO) 2.2 %; EOSINOPHILS # (AUTO) 0.1 10^3/uL (0.0-0.7); EOSINOPHILS % (AUTO) 1.9 %; HGB - HEMOGLOBIN 12.5 g/dL (14.0-18.0); LYMPHOCYTES % (AUTO) 30.9 %; MEAN CORPUSCULAR HEMOGLOBIN 31.7 pg (27.0-31.0); MEAN CORPUSCULAR HGB CONC 32.9 g/dL (32.0-36.0); MEAN CORPUSCULAR VOLUME 96.4 fL (80.0-94.0); MEAN PLATELET VOLUME 9.9 fL (7.4-11.4); MONOCYTES # (AUTO) 0.8 10^3/uL (0.0-1.0); MONOCYTES % (AUTO) 24.2 %; NEUTROPHILS # (AUTO) 1.3 10^3/uL (1.5-6.6); NEUTROPHILS % (AUTO) 40.5 %; PLT - PLATELET COUNT 134 10^3/uL (130-450); RED BLOOD COUNT 3.94 10^6/uL (4.70-6.10); WHITE BLOOD COUNT 3.1 x10^3/uL (4.8-10.8)
[2020-08-14 06:10] LABS: CREATININE 0.8 mg/dL (0.6-1.2)
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
[2020-08-14] MEDS: oxyCODONE 5 MG TABLET PO PRN ×2 (09:40→20:14)
[2020-08-14] MEDS: SPIRONOLACTONE 25 MG TABLET PO SCH (10:08)
[2020-08-14] MEDS: CITALOPRAM HYDROBROMIDE 20 MG TABLET PO SCH (10:08)
[2020-08-14] MEDS: diltiaZEM CD 180 MG CAPSULE PO SCH ×2 (10:11→20:13)
[2020-08-14] MEDS: ACYCLOVIR 200 MG CAPSULE PO SCH ×2 (10:11→20:14)
[2020-08-14] MEDS: MULTIVITAMIN TABLET PO SCH (10:11)
[2020-08-14] MEDS: APIXABAN 5 MG TABLET PO SCH ×2 (10:12→20:14)
[2020-08-14] MEDS: CARBOXYMETHYLCELLULOSE OPHTH DROPS EACHEYE PRN (10:13)
[2020-08-14] MEDS: traZODone 50 MG TABLET PO SCH (20:14)
[2020-08-15] MEDS: SODIUM CHLORIDE FLUSH 0.9% 10 ML SYRINGE IVP SCH ×4 (00:04→23:56)
[2020-08-15 07:40] LABS: BASOPHILS # (AUTO) 0.1 10^3/uL (0.0-0.1); BASOPHILS % (AUTO) 1.5 %; EOSINOPHILS # (AUTO) 0.1 10^3/uL (0.0-0.7); EOSINOPHILS % (AUTO) 2.4 %; HGB - HEMOGLOBIN 13.3 g/dL (14.0-18.0); LYMPHOCYTES # (AUTO) 1.5 10^3/uL (1.5-3.5); LYMPHOCYTES % (AUTO) 35.1 %; MEAN CORPUSCULAR HEMOGLOBIN 31.7 pg (27.0-31.0); MEAN CORPUSCULAR HGB CONC 32.6 g/dL (32.0-36.0); MEAN CORPUSCULAR VOLUME 97.4 fL (80.0-94.0); MEAN PLATELET VOLUME 10.3 fL (7.4-11.4); MONOCYTES # (AUTO) 0.7 10^3/uL (0.0-1.0); MONOCYTES % (AUTO) 16.5 %; NEUTROPHILS # (AUTO) 1.8 10^3/uL (1.5-6.6); PLT - PLATELET COUNT 159 10^3/uL (130-450); RED BLOOD COUNT 4.19 10^6/uL (4.70-6.10); WHITE BLOOD COUNT 4.1 x10^3/uL (4.8-10.8)
[2020-08-15 07:54] LABS: CALCIUM 8.9 mg/dL (8.5-10.3); CREATININE 0.9 mg/dL (0.6-1.2)
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
[2020-08-15] MEDS: diltiaZEM CD 180 MG CAPSULE PO SCH ×2 (08:40→20:29)
[2020-08-15] MEDS: CITALOPRAM HYDROBROMIDE 20 MG TABLET PO SCH (08:40)
[2020-08-15] MEDS: APIXABAN 5 MG TABLET PO SCH ×2 (08:41→20:30)
[2020-08-15] MEDS: SPIRONOLACTONE 25 MG TABLET PO SCH (08:41)
[2020-08-15] MEDS: MULTIVITAMIN TABLET PO SCH (08:41)
[2020-08-15] MEDS: ACYCLOVIR 200 MG CAPSULE PO SCH ×2 (08:41→20:29)
[2020-08-15] MEDS: traZODone 50 MG TABLET PO SCH (20:30)
[2020-08-15] MEDS: oxyCODONE 5 MG TABLET PO PRN (20:30)
[2020-08-16 06:01] LABS: BASOPHILS # (AUTO) 0.1 10^3/uL (0.0-0.1); BASOPHILS % (AUTO) 2.2 %; EOSINOPHILS # (AUTO) 0.1 10^3/uL (0.0-0.7); EOSINOPHILS % (AUTO) 3.3 %; HGB - HEMOGLOBIN 11.7 g/dL (14.0-18.0); LYMPHOCYTES # (AUTO) 0.8 10^3/uL (1.5-3.5); MEAN CORPUSCULAR HEMOGLOBIN 32.1 pg (27.0-31.0); MEAN CORPUSCULAR HGB CONC 32.9 g/dL (32.0-36.0); MEAN CORPUSCULAR VOLUME 97.8 fL (80.0-94.0); MONOCYTES # (AUTO) 0.5 10^3/uL (0.0-1.0); MONOCYTES % (AUTO) 17.2 %; NEUTROPHILS # (AUTO) 1.3 10^3/uL (1.5-6.6); NEUTROPHILS % (AUTO) 46.9 %; PLT - PLATELET COUNT 136 10^3/uL (130-450); RED BLOOD COUNT 3.64 10^6/uL (4.70-6.10); RED CELL DISTRIBUTION WIDTH 14.7 % (12.0-15.0); WHITE BLOOD COUNT 2.7 x10^3/uL (4.8-10.8)
[2020-08-16 06:09] LABS: CALCIUM 9.1 mg/dL (8.5-10.3); CREATININE 0.8 mg/dL (0.6-1.2)
[2020-08-16] MEDS: oxyCODONE 5 MG TABLET PO PRN (07:47)
--- NOTE | 2020-08-16 08:31 | PROVIDER PROGRESS NOTE ---
Subjective - Prog Note Date Prog Note Date: 08/16/20 Prog Note Time: 08:30 - Subjective Pt reports feeling: No change Subjective: He's awake and in good spirits when entering the room. He says that his oxygen saturation declined when got up to urinate during the night, but other than that his night was uneventful. He doesn't complain of any chest pain or shortness of breath at this time. He is currently 96% on 3L via NC. Objective - Vital Signs/Intake & Output Reviewed Vital Signs: Yes Vital Signs: Vital Signs x48h Pulse Ox 08/16/20 01:27 93 Intake & Output: Intake & Output 08/13/20 08/14/20 08/15/20 08/16/20 23:59 23:59 23:59 23:59 Intake Total 1150 2690 2940 Output Total 625 850 725 700 Balance 525 1840 2215 700 - Objective General Appearance: positive: No acute distress, Alert Eyes Bilateral: positive: Normal inspection, PERRL ENT: positive: Pharynx nml. negative: Pharyngeal erythema Neck: positive: Nml inspection. negative: Lymphadenopathy (R), Lymphadenopathy (L), Stiff neck Respiratory: positive: Chest non-tender, No respiratory distress, Breath sounds nml Cardiovascular: positive: Regular rate & rhythm, No murmur, No gallop. negative: Tachycardia Peripheral Pulses: 2+ Radial (R), 2+ Radial (L) Abdomen: positive: Non-tender, No distention. negative: Guarding, Rebound Back: positive: Nml inspection Skin: positive: Color nml, No rash, Dry, Cyanosis. negative: Diaphoresis, Pallor Extremities: positive: Non-tender. negative: Calf tenderness - Lab Results Fish Bones: 08/16/20 05:40 08/16/20 05:40 Other Labs: Lab Results x24hrs 08/16/20 08/16/20 Range/Units 05:40 05:40 WBC 2.7 L (4.8-10.8) x10^3/uL RBC 3.64 L (4.70-6.10) 10^6/uL Hgb 11.7 L (14.0-18.0) g/dL Hct 35.6 L (42.0-52.0) % MCV 97.8 H (80.0-94.0) fL MCH 32.1 H (27.0-31.0) pg MCHC 32.9 (32.0-36.0) g/dL RDW 14.7 (12.0-15.0) % Plt Count 136 (130-450) 10^3/uL MPV 10.0 (7.4-11.4) fL Neut # (Auto) 1.3 L (1.5-6.6) 10^3/uL Lymph # (Auto) 0.8 L (1.5-3.5) 10^3/uL [place] # (Auto) 0.5 (0.0-1.0) 10^3/uL Eos # (Auto) 0.1 (0.0-0.7) 10^3/uL Baso # (Auto) 0.1 (0.0-0.1) 10^3/uL Absolute Nucleated RBC 0.00 x10^3/uL Nucleated RBC % 0.0 /100WBC Sodium 139 (135-145) mmol/L Potassium 3.7 (3.5-5.0) mmol/L Chloride 104 (101-111) mmol/L Carbon Dioxide 26 (21-32) mmol/L Anion Gap 9.0 (6-13) BUN 22 H (6-20) mg/dL Creatinine 0.8 (0.6-1.2) mg/dL Estimated GFR (MDRD) 95 (>89) Glucose 131 H (70-100) mg/dL Calcium 9.1 (8.5-10.3) mg/dL ABX Reporting Has patient been on IV antibiotics over the past 48 hours?: No Assessment/Plan - Problem List (1) Pulmonary emboli Impression: He will continue his course of apixaban after discharge and followup with his oncologist. Qualifiers: Pulmonary embolism type: unspecified Chronicity: acute Acute cor pulmonale presence: unspecified Qualified Code(s): I26.99 - Other pulmonary embolism without acute cor pulmonale (2) Acute respiratory failure with hypoxia Impression: He was able to ambulate on 2L of oxygen and hold an O2 saturation of 94%. He will be discharged home with oxygen. (3) Multiple myeloma Impression: His revelimid and decadron are discontinued until he has an appointment with his oncologist. Qualifiers: Multiple myeloma remission status: not in remission Qualified Code(s): C90.00 - Multiple myeloma not having achieved remission (4) Chronic anemia Impression: Due to multiple myeloma. At this time no need for transfusion. (5) Asthma Impression: He is not in acute exacerbation. At this time his dyspnea and AYALA is due to his pulmonary emboli. He has an inhaler at home that he can use for exacerbations when he is discharged. Qualifiers: Asthma severity: mild Asthma persistence: unspecified Asthma complication type: unspecified Qualified Code(s): J45.909 - Unspecified asthma, uncomplicated (6) Hypertension Impression: He takes Cardizem CD 180 mg twice daily with spironolactone 25 mg a day. His blood pressure is 119/69 this morning. He will resume taking medications when discharged. Qualifiers: Hypertension type: essential hypertension Qualified Code(s): I10 - Essential (primary) hypertension (7) Insomnia secondary to situational depression Impression: He is on citalopram and trazodone. Those medications will be continued while he is here.
[2020-08-16] MEDS: APIXABAN 5 MG TABLET PO SCH (08:50)
[2020-08-16] MEDS: ACYCLOVIR 200 MG CAPSULE PO SCH (08:50)
[2020-08-16] MEDS: CITALOPRAM HYDROBROMIDE 20 MG TABLET PO SCH (08:51)
[2020-08-16] MEDS: SPIRONOLACTONE 25 MG TABLET PO SCH (08:51)
[2020-08-16] MEDS: MULTIVITAMIN TABLET PO SCH (08:51)
[2020-08-16] MEDS: diltiaZEM CD 180 MG CAPSULE PO SCH (08:51)
[2020-08-16] MEDS: CARBOXYMETHYLCELLULOSE OPHTH DROPS EACHEYE PRN (08:52)
[2020-08-16] MEDS: SODIUM CHLORIDE FLUSH 0.9% 10 ML SYRINGE IVP SCH (08:52)
--- NOTE | 2020-08-16 11:36 | Discharge Plan ---
Discharge Plan Problem Reviewed?: Yes Disposition: Home, Self Care Condition: Stable Prescriptions: Apixaban [Eliquis] 5 mg PO BID #30 tablet Diet: Cardiac Activity Restrictions: Activity as Tolerated Shower Restrictions: No Driving Restrictions: No Instruction Topics: Apixaban oral tablets, Embolism Pulmonary Health Concerns: In the history of known treatment for multiple myeloma, you come in with shortness of breath and coughing for a week that became severely worse over the days prior to admission. We evaluated you for heart attack, arrhythmia, anemia, infection, and found you to have multiple bilateral pulmonary emboli. We think this is a side effect of your treatment for myeloma. Myeloma in and of itself also can make your blood thicker. You have been placed on a blood thinner. I have spoken to your oncologist, and there are approving the choice of Eliquis. While here you had severely low oxygen levels requiring quite a bit of supplementation. You have needed less and less on a daily basis. However at discharge you will still need a little bit of oxygen. Plan of Treatment: 1. Follow-up with your primary care provider/oncologist in the next 1 to 2 weeks 2. Do not take Decadron or Revlimid until you see your oncologist. He knows that you are going to be going off of it indefinitely until he sees you. 3. You will need oxygen at a baseline at rest. Sometimes you need to increase your oxygen with going to the bathroom or walking. Care Goals: To not have any more recurrence of pulmonary emboli Assessment: Patient and understand care goals and will follow through No Smoking: If you smoke, Please STOP! Call for help.
[2020-08-16 12:30] VITALS: BP 117/58
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
[2020-08-20] MEDS ORDERED: APIXABAN 5 MG TABLET PO SCH (09:00)
== END 2020-08-16 12:50 | disposition home or self-care (01) | DRG 175 ==
LOC: ED 10:17 → MS2 13:25
PROVIDERS: ADMIT Specialist; ATTEND Specialist
DX: I26.99 Other pulmonary embolism without acute cor pulmonale (principal); J96.01 Acute respiratory failure with hypoxia; C90.00 Multiple myeloma not having achieved remission; D63.0 Anemia in neoplastic disease; J45.909 Unspecified asthma, uncomplicated; I10 Essential (primary) hypertension; F43.21 Adjustment disorder with depressed mood; F51.05 Insomnia due to other mental disorder; Z85.51 Personal history of malignant neoplasm of bladder; Z87.891 Personal history of nicotine dependence; Z66 Do not resuscitate; Z79.82 Long term (current) use of aspirin; Z79.899 Other long term (current) drug therapy; R77.8 Other specified abnormalities of plasma proteins; M79.605 Pain in left leg; G89.29 Other chronic pain
CPT/HCPCS: 0202U; 36415; 36600; 71045; 71275; 80048; 80053; 82803; 83690; 83880; 84484; 85025; 85379; 93005; 93970; 94640; 94761; 96372; 99284; 99285; A9270; J1650; J8499; Q9967

== ENCOUNTER 2021-01-19 08:00 | Outpatient (CLI) | payer OTHER ==
[2021-01-19 20:22] LABS: BASOPHILS % (AUTO) 0.5 %; LYMPHOCYTES # (AUTO) 1.1 10^3/uL (1.5-3.5); MEAN CORPUSCULAR HEMOGLOBIN 30.8 pg (27.0-31.0); MEAN CORPUSCULAR HGB CONC 32.4 g/dL (32.0-36.0); MEAN CORPUSCULAR VOLUME 94.9 fL (80.0-94.0); MEAN PLATELET VOLUME 9.8 fL (7.4-11.4); MONOCYTES # (AUTO) 0.6 10^3/uL (0.0-1.0); MONOCYTES % (AUTO) 10.9 %; NEUTROPHILS % (AUTO) 68.6 %; PLT - PLATELET COUNT 219 10^3/uL (130-450); RED CELL DISTRIBUTION WIDTH 14.6 % (12.0-15.0); WHITE BLOOD COUNT 5.9 x10^3/uL (4.8-10.8)
[2021-01-19 20:31] LABS: ALBUMIN 3.7 g/dL (3.2-5.5); ALBUMIN/GLOBULIN RATIO 1.2 (1.0-2.2); BILIRUBIN,TOTAL 0.6 mg/dL (0.2-1.0); CALCIUM 9.5 mg/dL (8.5-10.3); CREATININE 0.8 mg/dL (0.6-1.2); POTASSIUM 4.3 mmol/L (3.5-5.0); TOTAL PROTEIN 6.9 g/dL (6.7-8.2)
== END 2021-01-19 23:59 | disposition home or self-care (01) ==
LOC: LAB.S 08:00
PROVIDERS: ATTEND Emergency Medicine
DX: R60.0 Localized edema (principal); R06.00 Dyspnea, unspecified
CPT/HCPCS: 36415; 80053; 83880; 85025

== ENCOUNTER 2021-01-23 17:24 | Outpatient (CLI) | payer OTHER | END 2021-01-23 17:25 | disposition critical access hospital (66) | LOC: EMS 17:24 | DX: R41.82 Altered mental status, unspecified (principal) | CPT/HCPCS: A0425; A0429 ==

== ENCOUNTER 2021-01-23 17:55 | Inpatient (IN) | payer OTHER ==
--- NOTE | 2021-01-23 18:43 | XRAY Report ---
PROCEDURE: Chest 1 View X-Ray INDICATIONS: fever TECHNIQUE: One view of the chest was acquired. COMPARISON: 08/12/2020 FINDINGS: Surgical changes and devices: None. Lungs and pleura: No pleural effusions or pneumothorax. Lungs are clear. Mediastinum: Mediastinal contours appear normal. Heart size is normal. Bones and chest wall: No suspicious bony lesions. Overlying soft tissues appear unremarkable. Stab le appearance of moderate degenerative changes of the right glenohumeral joint. IMPRESSION: Chest without acute cardiopulmonary abnormalities. No focal airspace disease identified. Reviewed by: Quinten Burgos MD on 01/23/2021 6:42 PM PDT Approved by: Quinten Burgos MD on 01/23/2021 6:42 PM PDT Station ID: [id number]
[2021-01-23 18:53] LABS: BASOPHILS % (AUTO) 0.4 %; HCT - HEMATOCRIT 36.6 % (42.0-52.0); HGB - HEMOGLOBIN 12.3 g/dL (14.0-18.0); LYMPHOCYTES # (AUTO) 0.9 10^3/uL (1.5-3.5); MEAN CORPUSCULAR HEMOGLOBIN 31.1 pg (27.0-31.0); MEAN CORPUSCULAR HGB CONC 33.6 g/dL (32.0-36.0); MEAN CORPUSCULAR VOLUME 92.7 fL (80.0-94.0); MEAN PLATELET VOLUME 10.1 fL (7.4-11.4); MONOCYTES # (AUTO) 0.4 10^3/uL (0.0-1.0); MONOCYTES % (AUTO) 4.2 %; NEUTROPHILS # (AUTO) 6.7 10^3/uL (1.5-6.6); NEUTROPHILS % (AUTO) 80.9 %; PLT - PLATELET COUNT 174 10^3/uL (130-450); RED BLOOD COUNT 3.95 10^6/uL (4.70-6.10); RED CELL DISTRIBUTION WIDTH 14.6 % (12.0-15.0); WHITE BLOOD COUNT 8.3 x10^3/uL (4.8-10.8)
[2021-01-23 18:59] LABS: INR 1.8 (0.8-1.2); PT - PROTHROMBIN TIME 19.4 secs (9.9-12.6)
[2021-01-23] MEDS ORDERED: ACETAMINOPHEN 325 MG TABLET PO STA (19:01)
[2021-01-23] MEDS ORDERED: SODIUM CHLORIDE 0.9% 1,000 ML IV STA ×2 (19:01)
[2021-01-23 19:05] LABS: ALBUMIN 3.6 g/dL (3.2-5.5); ALBUMIN/GLOBULIN RATIO 1.1 (1.0-2.2); BILIRUBIN,TOTAL 1.4 mg/dL (0.2-1.0); CALCIUM 8.7 mg/dL (8.5-10.3); CREATININE 0.8 mg/dL (0.6-1.2); POTASSIUM 3.6 mmol/L (3.5-5.0); TOTAL PROTEIN 6.8 g/dL (6.7-8.2)
[2021-01-23 19:05] LABS: BILIRUBIN,URINE NEGATIVE (NEGATIVE); GLUCOSE, URINE (UA) NEGATIVE (NEGATIVE); KETONES,URINE (UA) NEGATIVE (NEGATIVE); LEUKOCYTE ESTERASE, URINE NEGATIVE (NEGATIVE); NITRITE,URINE NEGATIVE (NEGATIVE); OCCULT BLOOD,URINE TRACE-INTA (NEGATIVE); PH,URINE 6.5 PH (5.0-7.5); PROTEIN,URINE 30 mg/dL (NEGATIVE); UROBILINOGEN,URINE 0.2 (NORMAL) E.U./dL (NORMAL)
[2021-01-23 19:06] LABS: CLARITY,URINE CLEAR (CLEAR)
[2021-01-23 19:07] LABS: PARTIAL THROMBOPLASTIN TIME 24.2 secs (24.9-33.3)
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
[2021-01-23] MEDS ORDERED: IOVERSOL 320 100 ML VIAL IVP ONE ×2 (19:12→21:58)
[2021-01-23 19:16] LABS: BACTERIA,URINE None Seen /HPF (None Seen); RBC,URINE 0-5 /HPF (0-5); SQUAMOUS EPITHELIAL CELL,UR RARE Squamous (<= Few); WBC,URINE 0-3 /HPF (0-3)
[2021-01-23 19:48] LABS: CORONAVIRUS 229E-RESP PCR NOT DETECTED; CORONAVIRUS HKU1-RESP PCR NOT DETECTED; CORONAVIRUS NL63-RESP PCR NOT DETECTED; CORONAVIRUS OC43-RESP PCR NOT DETECTED; HUMAN METAPNEUMOVIRUS NOT DETECTED; RHINOVIRUS/ENTEROVIRUS NOT DETECTED; SARS-CoV-2 -RESP PCR PANEL NOT DETECTED
[2021-01-23 19:49] LABS: B. PARAPERTUSSIS- RESP PCR PAN NOT DETECTED; B. PERTUSSIS- RESP PCR PANEL NOT DETECTED; C. PNEUMONIAE- RESP PCR PANEL NOT DETECTED; INFLUENZA A- RESP PCR PANEL NOT DETECTED; INFLUENZA B - RESP PCR PANEL NOT DETECTED; M. PNEUMONIAE- RESP PCR PANEL NOT DETECTED; PARAINFLUENZA VIRUS 1 NOT DETECTED; PARAINFLUENZA VIRUS 2 NOT DETECTED; PARAINFLUENZA VIRUS 3 NOT DETECTED; PARAINFLUENZA VIRUS 4 NOT DETECTED; RSV- RESP PCR PANEL NOT DETECTED
[2021-01-23] MEDS ORDERED: VANCOMYCIN INJ 3 GM in SODIUM CHLORIDE 0.9% 500 ML IV ONE (19:55)
[2021-01-23] MEDS ORDERED: PIPERACILLIN/TAZOBACTAM 3.375 GM in SODIUM CHLORIDE 0.9% MINIBAG 100 ML IV STA (19:56)
[2021-01-23] MEDS ORDERED: VANCOMYCIN 1 GM VIAL ONE (20:03)
--- NOTE | 2021-01-23 20:36 | CT Report ---
PROCEDURE: Abdomen/Pelvis W INDICATIONS: abdominal pain, bruising CONTRAST: IV CONTRAST: Optiray 320 ml: 100 PO CONTRAST: *NO PO CONTRAST TECHNIQUE: After the administration of weight appropriate dose of intravenous contrast, 5 mm thick sections acqu ired from the diaphragms to the symphysis. 5 mm thick coronal and sagittal reformats were acquired. For radiation dose reduction, the following was used: automated exposure control, adjustment of mA and/or kV according to patient size. COMPARISON: None. FINDINGS: Image quality: Study degraded by moderate beam hardening artifact given patient's arms being next to his side versus above his head. ABDOMEN: Lung bases: Mild bibasilar atelectasis.. Heart size is normal. Solid organs: Liver and spleen are normal in size and enhancement. Gallbladder contains multiple ga llstones near the gallbladder neck and cystic duct. There is a suspected 5 mm stone near the ampulla of the distal common bile duct. Biliary system is non dilated. Pancreas enhances normally. No adre nal nodules. Kidneys demonstrate normal size and enhancement, without hydronephrosis. Peritoneum and bowel: Bowel loops demonstrate normal wall thickness and caliber. No free fluid or a ir. Nodes and vessels: No retroperitoneal or mesenteric adenopathy by size criteria. Aorta and inferior vena cava are normal in size. Scattered atherosclerotic calcifications of the abdominal aorta. Miscellaneous: Fat-containing umbilical hernia without acute inflammation. Neck of the hernia measure s approximately 2.4 cm in diameter. PELVIS: Genitourinary: Bladder wall thickness is normal. Radiation seeds noted in the prostate fossa. Miscellaneous: No pelvic adenopathy. Fat-containing left inguinal hernia without acute inflammation . Bones: No suspicious bony lesions. No acute vertebral body compression fractures. Multilevel spondy losis of the imaged spine. IMPRESSION: 1. Cholelithiasis with gallstones noted in the neck of the gallbladder and possibly the proximal cyst ic duct. There is also a suspected 5 mm stone in the distal common bile duct near the ampulla. No nevaeh iary dilatation identified. Recommend clinical and laboratory correlation. 2. Fat-containing umbilical hernia and fat-containing left inguinal hernia without acute inflammatory changes. Reviewed by: Quinten Burgos MD on 01/23/2021 8:35 PM PDT Approved by: Quinten Burgos MD on 01/23/2021 8:35 PM PDT Station ID: [id number]
[2021-01-23] MEDS ORDERED: ONDANSETRON 4 MG/2 ML VIAL IVP PRN (22:12)
[2021-01-23] MEDS ORDERED: SODIUM CHLORIDE FLUSH 0.9% 10 ML SYRINGE IVP PRN (22:12)
--- NOTE | 2021-01-23 22:18 | HISTORY & PHYSICAL EXAMINATION ---
Chief Complaint - Chief Complaint Chief Complaint: rigors, fever History of Present Illness - Admitted From Admitted From:: [facility] ED - History Obtained From Records Reviewed: yes History obtained from: patient - History of Present Illness HPI Comment/Other: Patient is 70-year-old male with medical history significant for multiple myeloma, pulmonary embolism on Eliquis, hypertension, depression who presented to the ED with fever and rigors for 2 days. He was finally brought in by his today because he became incoherent this morning. He reports being diaphoretic as well. He was noted to have a temperature of 39.2 upon presentati on to the ED. Work-up included a CBC which was largely unremarkable however the patient has a significant scrotal erythema. As a result he was presented for admission for further treatment. At bedside he complains of an excruciating headache from the back of his neck to his occiput. He denies chest pain, dyspnea, abdominal pain, nausea or vomiting. The rest of his history is unremarkable. History - Past Medical History Cardiovascular: reports: Hypertension Respiratory: reports: Asthma, Pneumonia Neuro: reports: Tremors Endocrine/Autoimmune: reports: None GI: reports: GI bleed : reports: Other (bladder cancer) Psych: reports: None Musculoskeletal: reports: None, Other (chronic right leg pain from G[place] in [place]) Derm: reports: None MRSA Hx?: No Other Past Medical History: PE, Multiple myeloma - Family & Social History Family History: Mother: (Mom at 62 of HF. Dad at 72.), Father: , Parkinson's Disease, Sister: Alive and Well (2 sisters - ) Family History Comment/Other: pt is confused, can not provide FH Living Situation: With spouse/s.o., With family Social History Notes: Born in [facility]. He met his when he was in [place]. He did serve in the and was shot in [place]. He is 100% service-connected. [place] in [place]. One of their sons got the [employer] route on the [place] and they like to be close to him. He has had multiple jobs in the past. 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 He gets his care at the [facility] in [place]. - Substance History Use: Uses substance without health or social issues: Tobacco (For 7 years. Quit in 1973.), Alcohol (1-2 times a month.) - POLST Patient has POLST: No POLST Status: Full Code Meds/Allgy - Home Medications Home Medications: Ambulatory Orders Medication Instructions Recorded Confirmed Citalopram Hydrobromide 20 mg PO DAILY 07/26/19 01/24/21 [Citalopram HBr] Multivitamin [Theragran] 1 each PO DAILY 07/26/19 01/24/21 Trazodone HCl 100 mg PO QPM 07/26/19 01/24/21 dexAMETHasone [Decadron] 40 mg PO Q7D 07/26/19 01/24/21 Carboxymethylcellulose Sodium 1 drops EACHEYE Q2H PRN 07/27/19 01/24/21 [Restore Plus] Lenalidomide [Revlimid] 25 mg PO DAILY 07/27/19 01/24/21 dilTIAZem HCl [Diltiazem 24Hr ER 180 mg PO BID 07/27/19 01/24/21 (Cd)] oxyCODONE [Roxicodone] 10 mg PO TID PRN 08/12/20 01/24/21 Apixaban [Eliquis] 5 mg PO BID #30 tablet 08/14/20 01/24/21 Furosemide [Lasix] 20 mg PO DAILY 01/24/21 01/24/21 - Allergies Allergies/Adverse Reactions: Allergies Allergy/AdvReac Type Severity Reaction Status Date / Time Sulfa (Sulfonamide Allergy Severe Unknown Verified 01/23/21 18:16 Antibiotics) Review of Systems - Constitutional Constitutional: reports: Fever - Eyes Eyes: denies: Pain, Vision loss, Dipolpia - Ears, Nose & Throat Ears, Nose & Throat: denies: Ear pain, Sore throat - Cardiovascular Cariovascular: denies: Irregular heart rate, Palpitations, Chest pain, Edema, Lightheadedness, Syncope, Exertional dyspnea - Respiratory Respiratory: denies: Cough, Sputum production, Wheezing, SOB at rest, SOB with exertion - Gastrointestinal Gastrointestinal: denies: Abdominal pain, Abdominal distention, Constipation, Diarrhea, Nausea, Vomiting, Coffee grounds emesis - Genitourinary Genitourinary: denies: Dysuria, Frequency, Urgency, Hematuria - Musculoskeletal Musculoskeletal: denies: Muscle pain, Back pain, Muscle aches - Integumentary Integumentary: reports: Other (erythema in groin area) - Neurological Neurological: denies: General weakness, Focal weakness, Dizziness - Psychiatric Psychiatric: denies: Depression, Anxiety - Endocrine Endocrine: denies: Polyuria, Polydypsia, Polyphagia - Hematologic/Lymphatic Hematologic/Lymphatic: denies: Anemia, Bruising Prior Level of Functionality: Patient is independent of activities of daily living Exam - Vital Signs Vital Signs: Vital Signs x48h Temp Pulse Resp BP Pulse Ox 01/23/21 22:00 83 19 115/67 97 01/23/21 21:30 38.6 C H 91 16 150/115 H 95 01/23/21 21:00 39.2 C H 92 16 124/67 94 01/23/21 20:39 98 15 115/62 94 01/23/21 20:22 93 20 115/63 94 01/23/21 19:16 39.2 C H 106 H 16 109/75 94 01/23/21 18:30 104 H 12 114/90 H 94 01/23/21 18:11 39.4 C H 106 H 15 144/119 H 94 - Physical Exam General Appearance: positive: Alert, Mild distress, Moderate distress Eyes Bilateral: positive: PERRL, EOMI ENT: positive: No signs of dehydration Neck: positive: No JVD, Trachea midline Respiratory: positive: Chest non-tender, No respiratory distress, Breath sounds nml. negative: Wheezes, Rales, Rhonchi Cardiovascular: positive: Regular rate & rhythm, No murmur Abdomen: positive: Non-tender, No organomegaly, Nml bowel sounds, No distention. negative: Guarding, Rebound Back: positive: Nml inspection Skin: positive: Other (scrotal erythema) Extremities: positive: Non-tender, Full ROM, Nml appearance, No pedal edema Neurologic/Psychiatric: positive: Oriented x3, Mood/affect nml. negative: Motor nml, Sensation nml Conclusion/Plan - Problem List (1) Cellulitis Conclusion/Plan: Scrotal cellulitis Blood cultures drawn. Vancomycin and Zosyn initiated. We will continue. Qualifiers: Site of cellulitis: trunk Site of cellulitis of trunk: perineum Qualified Code(s): L03.315 - Cellulitis of perineum (2) Multiple myeloma Conclusion/Plan: On lenalidomide and Decadron Qualifiers: Multiple myeloma remission status: not in remission Qualified Code(s): C90.00 - Multiple myeloma not having achieved remission (3) History of pulmonary embolism Conclusion/Plan: On Eliquis 5 mg p.o. twice daily (4) Depression Conclusion/Plan: On citalopram 20 mg p.o. daily (5) Hypertension Conclusion/Plan: On diltiazem CD 180 mg twice daily and [id number] mg p.o. daily Qualifiers: Hypertension type: essential hypertension Qualified Code(s): I10 - Essential (primary) hypertension - Lab Results Fish Bones: 01/25/21 04:56 01/25/21 04:56 Core Measures - Anticipated LOS I expect patient to be DC'd or transferred within 96 hours.: Yes - DVT/VTE - Prophylaxis VTE/DVT Device ordered at admit?: Yes VTE/DVT Prophylaxis med ordered at admit?: Yes
[2021-01-23] MEDS: HYDROcod/ACETAM 7.5 MG/325 MG TABLET PO PRN (23:31)
[2021-01-23] MEDS: SODIUM CHLORIDE 0.9% 1,000 ML IV SCH (23:35)
[2021-01-24] MEDS: ZINC OXIDE 20% OINT 30 GM TUBE TOP PRN ×2 (00:01→11:30)
[2021-01-24] MEDS: PIPERACILLIN/TAZOBACTAM 3.375 GM in SODIUM CHLORIDE 0.9% MINIBAG 100 ML IV SCH ×3 (00:04→16:16)
[2021-01-24] MEDS: SODIUM CHLORIDE 0.9% 1,000 ML IV SCH ×2 (04:46→14:30)
[2021-01-24 04:58] LABS: BASOPHILS % (AUTO) 0.1 %; EOSINOPHILS % (AUTO) 0.1 %; HCT - HEMATOCRIT 34.6 % (42.0-52.0); HGB - HEMOGLOBIN 11.4 g/dL (14.0-18.0); LYMPHOCYTES # (AUTO) 1.3 10^3/uL (1.5-3.5); LYMPHOCYTES % (AUTO) 15.5 %; MEAN CORPUSCULAR HEMOGLOBIN 31.1 pg (27.0-31.0); MEAN CORPUSCULAR HGB CONC 32.9 g/dL (32.0-36.0); MEAN CORPUSCULAR VOLUME 94.5 fL (80.0-94.0); MEAN PLATELET VOLUME 10.4 fL (7.4-11.4); MONOCYTES # (AUTO) 0.4 10^3/uL (0.0-1.0); NEUTROPHILS # (AUTO) 6.8 10^3/uL (1.5-6.6); NEUTROPHILS % (AUTO) 78.5 %; PLT - PLATELET COUNT 150 10^3/uL (130-450); RED BLOOD COUNT 3.66 10^6/uL (4.70-6.10); RED CELL DISTRIBUTION WIDTH 14.9 % (12.0-15.0); WHITE BLOOD COUNT 8.7 x10^3/uL (4.8-10.8)
[2021-01-24] MEDS: HYDROcod/ACETAM 7.5 MG/325 MG TABLET PO PRN ×3 (05:00→17:20)
[2021-01-24] MEDS: SODIUM CHLORIDE FLUSH 0.9% 10 ML SYRINGE IVP SCH ×3 (05:05→17:20)
[2021-01-24 05:10] LABS: CALCIUM 7.9 mg/dL (8.5-10.3); CREATININE 0.8 mg/dL (0.6-1.2); POTASSIUM 3.1 mmol/L (3.5-5.0)
[2021-01-24] MEDS ORDERED: POTASSIUM CHLORIDE 20 MEQ TABLET PO ONE (06:44)
--- NOTE | 2021-01-24 08:30 | CT Report ---
PROCEDURE: HEAD WO INDICATIONS: headache TECHNIQUE: Noncontrast 4.5 mm thick angled axial sections acquired from the foramen magnum to the vertex. For r adiation dose reduction, the following was used: automated exposure control, adjustment of mA and/or kV according to patient size. COMPARISON: None. FINDINGS: Image quality: Excellent. CSF spaces: Basal cisterns are patent. No extra-axial fluid collections. Ventricles are normal in size and shape. Brain: No midline shift. No intracranial masses or hemorrhage. Hickey-white matter interface is norm al. Age-related volume loss and moderate small vessel ischemic change. Dense intracranial internal c arotid artery calcifications as well as distal left vertebral artery calcification. Skull and face: Calvarium and visualized facial bones are intact, without suspicious lesions. Sinuses: Visualized sinuses and mastoids are clear. IMPRESSION: 1. No evidence acute stroke, hemorrhage, or mass. 2. Age-related volume loss and moderate small vessel ischemic change. A preliminary report with the above findings was provided at the time of the study by [facility]. Reviewed by: Padilla Moses MD on 01/24/2021 7:28 AM RICK Approved by: Padilla Moses MD on 01/24/2021 7:28 AM RICK Station ID: [id number]
--- NOTE | 2021-01-24 08:38 | Ultrasound Report ---
PROCEDURE: Abdomen Limited INDICATIONS: fever, gallstones on CT in neck of GB TECHNIQUE: Real-time focused scanning was performed of the abdomen, with image documentation. COMPARISON: CT abdomen and pelvis dated 01/23/2021 FINDINGS: At least 2 gallstones are present in the gallbladder including a gallstone impacted in the gallbladder neck. There is mild prominence of the wall of the gallbladder, measuring 2.9 mm. This is not frankly thickened. There is no fluid around the gallbladder. There is no sonographic Duarte sign . Incidental small gallbladder polyps are noted. No intrahepatic biliary ductal dilatation. Extrahepatic bile duct is poorly visualized. The visualized portions of the liver are mildly echogenic. IMPRESSION: 1. Cholelithiasis without evidence of acute cholecystitis. 2. Mild hepatic steatosis. A preliminary report with the above findings was provided at the time of the study by [facility]. Reviewed by: Padilla Moses MD on 01/24/2021 7:37 AM RICK Approved by: Padilla Moses MD on 01/24/2021 7:37 AM RICK Station ID: [id number]
[2021-01-24] MEDS ORDERED: VANCOMYCIN INJ 1.5 GM in SODIUM CHLORIDE 0.9% 500 ML IV SCH (11:00)
--- NOTE | 2021-01-24 13:50 | PHARMACY PROGRESS NOTE ---
- Best Possible Medication History Admit Date and Time: 01/23/212211 Processed by: Pharmacy Medication History completed: Yes Patient Interview: Completed Secondary Source(s): Spouse/Significant other, Physician records Patient currently taking weekly dexamethasone on Mondays with this cycle. As the person ultimately responsible for medication therapy, providers are able to order a medication from an existing home medication list in [facility] via the "Reconcile Routine" prior to Confirmation of that medication by lan support specialist. Such practice is discouraged except when the physician, in their clinical judgment, deems that a medical need exists for a medication without regard to previous use.
--- NOTE | 2021-01-24 19:14 | PROVIDER PROGRESS NOTE ---
Assessment/Plan - Problem List (1) Cellulitis Qualifiers: Site of cellulitis: trunk Site of cellulitis of trunk: perineum Qualified Code(s): L03.315 - Cellulitis of perineum Assessment/Plan: Blood cultures grew Streptococcus species. Vancomycin discontinued. We will continue Zosyn. Patient continues to be afebrile and white count continues to be normal will consider discharge tomorrow. We will place the patient on Augmentin bid for 10 days (2) Multiple myeloma Qualifiers: Multiple myeloma remission status: not in remission Qualified Code(s): C 90.00 - Multiple myeloma not having achieved remission Assessment/Plan: On lenalidomide and Decadron. We will hold Decadron for now while treating infection. Patient will follow up with his oncologist upon discharge. (3) History of pulmonary embolism Assessment/Plan: On Eliquis 5 mg p.o. twice daily (4) Depression Assessment/Plan: On citalopram 20 mg p.o. daily (5) Hypertension Qualifiers: Hypertension type: essential hypertension Qualified Code(s): I10 - Essential (primary) hypertension Assessment/Plan: On diltiazem CD 180 mg twice daily and spironolactone 25 mg p.o. daily - Current Meds Current Meds: Current Medications Generic Name Dose Route Start Last Admin Trade Name Freq PRN Reason Stop Dose Admin Hydrocodone Bitart/Acetaminophen 1 tab 01/23/21 23:08 01/24/21 17:20 Hydrocod/Acetam 7.5 Mg/325 Mg Tablet PO 1 tab Q6HR PRN Administration PAIN Sodium Chloride 1,000 mls @ 100 mls/hr 01/23/21 23:00 01/24/21 14:30 Normal Saline 0.9% IV 100 mls/hr .Q10H LISY Administration Piperacillin Sod/Tazobactam 100 mls @ 25 mls/hr 01/24/21 00:30 01/24/21 16:16 Sod 3.375 gm/ Sodium Chloride IV 25 mls/hr Q8H LISY Administration Vancomycin HCl 1.5 gm/ Sodium 500 mls @ 250 mls/hr 01/24/21 11:00 01/24/21 14:00 Chloride IV Infused Q12H LISY Infusion Multi-Ingredient Ointment 1 applic 01/23/21 23:13 01/24/21 11:30 Zinc Oxide 20% Oint 30 Gm Tube TOP 1 applic PRN PRN Administration Skin Care Sodium Chloride 10 ml 01/24/21 01:00 01/24/21 17:20 Sodium Chloride Flush 0.9% 10 Ml Syringe IVP Not Given 0100,0900,1700 LISY - Lab Result Fish Bone Diagrams: 01/24/21 04:43 01/24/21 04:43 - Additional Planning My Orders: My Active Orders 01/23/21 22:12 Activity Orders [RC] Q2HR IO [RC] IOSHIFT Initiate Bowel Care Protocol [RC] .protocol Initiate Line Care Protocol [RC] QSHIFT Initiate Personal Care Protoco [RC] .protocol Telemetry- [RC] Q4HR Vital Signs [RC] Q4HR Acetaminophen [Tylenol] 650 mg PO Q4HR PRN Ondansetron Inj [Zofran Inj] 4 mg IVP Q6HR PRN Sodium Chloride Flush 0.9% [Normal Saline Flush 0.9%] 10 ml IVP PRN PRN Code Status [OTHERS] Routine Condition of Patient [OTHERS] Routine DVT Prophylaxis [OTHERS] Routine 01/23/21 22:15 SCDs [RC] QSHIFT 01/23/21 23:00 Sodium Chloride 0.9% [Normal Saline 0.9%] 1,000 ml IV 100 mls/hr 01/23/21 23:08 HYDROcodone/ACET 7.5/325 [[place] 7.5/325] 1 tab PO Q6HR PRN 01/23/21 23:13 Zinc Oxide 20% Oint [Zinc Oxide] 1 applic TOP PRN PRN 01/24/21 00:30 Piperacillin/Tazobactam [Zosyn] 3.375 gm Sodium Chloride 0.9% Minibag [Normal Saline 0.9% Minibag] 100 ml IV Q8H 01/24/21 01:00 Sodium Chloride Flush 0.9% [Normal Saline Flush 0.9%] 10 ml IVP 0100,0900,1700 01/24/21 11:00 Vancomycin Inj [Vancomycin] 1.5 gm Sodium Chloride 0.9% [Normal Saline 0.9%] 500 ml IV Q12H 01/25/21 05:00 BMP - BASIC METABOLIC PANEL [CHEM] DAILYLAB CBC - COMP BLD CT W/AUTO DIFF [HEME] DAILYLAB 01/26/21 05:00 BMP - BASIC METABOLIC PANEL [CHEM] DAILYLAB CBC - COMP BLD CT W/AUTO DIFF [HEME] DAILYLAB 01/27/21 05:00 BMP - BASIC METABOLIC PANEL [CHEM] DAILYLAB CBC - COMP BLD CT W/AUTO DIFF [HEME] DAILYLAB 01/28/21 05:00 BMP - BASIC METABOLIC PANEL [CHEM] DAILYLAB CBC - COMP BLD CT W/AUTO DIFF [HEME] DAILYLAB Subjective - Subjective Patient Reports: Other (Resting comfortably in bed. Complains of intermittent head pain. Currently sweating but afebrile. Rigors stopped. Denied any other complains.) Objective Vital Signs: Vital Signs - 24 hr 01/23/21 01/23/21 01/23/21 19:16 20:22 20:39 Temperature 39.2 C H Heart Rate 106 H 93 98 Heart Rate [ Monitoring electrodes] Respiratory 16 20 15 Rate Blood Pressure 109/75 115/63 115/62 Blood Pressure [Right Brachial artery] Blood Pressure [Right Radial artery] O2 Saturation 94 94 94 01/23/21 01/23/21 01/23/21 21:00 21:30 22:00 Temperature 39.2 C H 38.6 C H Heart Rate 92 91 83 Heart Rate [ Monitoring electrodes] Respiratory 16 16 19 Rate Blood Pressure 124/67 150/115 H 115/67 Blood Pressure [Right Brachial artery] Blood Pressure [Right Radial artery] O2 Saturation 94 95 97 01/23/21 01/23/21 01/24/21 22:30 23:05 04:41 Temperature 37.9 C 37.4 C Heart Rate 81 Heart Rate [ 95 84 Monitoring electrodes] Respiratory 20 22 18 Rate Blood Pressure 105/63 Blood Pressure 127/98 H [Right Brachial artery] Blood Pressure 135/70 H [Right Radial artery] O2 Saturation 94 93 97 01/24/21 01/24/21 01/24/21 07:39 14:30 16:57 Temperature 36.9 C 37.6 C 36.7 C Heart Rate Heart Rate [ 84 81 85 Monitoring electrodes] Respiratory 16 14 15 Rate Blood Pressure Blood Pressure 118/56 L 134/47 H 134/84 H [Right Brachial artery] Blood Pressure [Right Radial artery] O2 Saturation 100 98 95 Oxygen O2 Source Room air I&O (Last 24 Hrs): Intake and Output Totals x24h 01/22/21 01/23/21 01/24/21 23:59 23:59 23:59 Intake Total 2138.933 3672.333 Output Total 1575 Balance 2138.933 2097.333 General: Alert, Oriented x3, Moderate distress HEENT: PERRLA, EOMI Neck: Supple, No JVD Neuro: Alert, Non Focal, Oriented Times 3 Cardiovascular: Regular rate, Other (2/6 blowing systolic murmur (known)) Respiratory: Chest non-tender, No respiratory distress, Breath sounds nml Abdomen: Normal bowel sounds, Soft, No tenderness Genitourinary: Other (erythema around scrotum) Extremities: No clubbing, No cyanosis, No edema, No tenderness/swelling - Results Results: Laboratory Results WBC 8.7 x10^3/uL (4.8-10.8) 01/24/21 04:43 RBC 3.66 10^6/uL (4.70-6.10) L 01/24/21 04:43 Hgb 11.4 g/dL (14.0-18.0) L 01/24/21 04:43 Hct 34.6 % (42.0-52.0) L 01/24/21 04:43 MCV 94.5 fL (80.0-94.0) H 01/24/21 04:43 MCH 31.1 pg (27.0-31.0) H 01/24/21 04:43 MCHC 32.9 g/dL (32.0-36.0) 01/24/21 04:43 RDW 14.9 % (12.0-15.0) 01/24/21 04:43 Plt Count 150 10^3/uL (130-450) 01/24/21 04:43 MPV 10.4 fL (7.4-11.4) 01/24/21 04:43 Neut # (Auto) 6.8 10^3/uL (1.5-6.6) H 01/24/21 04:43 Lymph # (Auto) 1.3 10^3/uL (1.5-3.5) L 01/24/21 04:43 [place] # (Auto) 0.4 10^3/uL (0.0-1.0) 01/24/21 04:43 Eos # (Auto) 0.0 10^3/uL (0.0-0.7) 01/24/21 04:43 Baso # (Auto) 0.0 10^3/uL (0.0-0.1) 01/24/21 04:43 Absolute Nucleated RBC 0.00 x10^3/uL 01/24/21 04:43 Nucleated RBC % 0.0 /100WBC 01/24/21 04:43 PT 19.4 secs (9.9-12.6) H 01/23/21 18:46 INR 1.8 (0.8-1.2) H 01/23/21 18:46 APTT 24.2 secs (24.9-33.3) L 01/23/21 18:46 Sodium 137 mmol/L (135-145) 01/24/21 04:43 Potassium 3.1 mmol/L (3.5-5.0) L 01/24/21 04:43 Chloride 100 mmol/L (101-111) L 01/24/21 04:43 Carbon Dioxide 26 mmol/L (21-32) 01/24/21 04:43 Anion Gap 11.0 (6-13) 01/24/21 04:43 BUN 16 mg/dL (6-20) 01/24/21 04:43 Creatinine 0.8 mg/dL (0.6-1.2) 01/24/21 04:43 Estimated GFR (MDRD) 95 (>89) 01/24/21 04:43 Glucose 179 mg/dL (70-100) H 01/24/21 04:43 Lactic Acid 1.5 mmol/L (0.5-2.2) 01/23/21 18:46 Calcium 7.9 mg/dL (8.5-10.3) L 01/24/21 04:43 Magnesium 2.1 mg/dL (1.7-2.8) 01/24/21 04:43 Total Bilirubin 1.4 mg/dL (0.2-1.0) H 01/23/21 18:46 AST 31 IU/L (10-42) 01/23/21 18:46 ALT 43 IU/L (10-60) 01/23/21 18:46 Alkaline Phosphatase 39 IU/L (42-121) L 01/23/21 18:46 Total Protein 6.8 g/dL (6.7-8.2) 01/23/21 18:46 Albumin 3.6 g/dL (3.2-5.5) 01/23/21 18:46 Globulin 3.2 g/dL (2.1-4.2) 01/23/21 18:46 Albumin/Globulin Ratio 1.1 (1.0-2.2) 01/23/21 18:46 Lipase 46 U/L (22-51) 01/23/21 18:46 Urine Color YELLOW 01/23/21 18:44 Urine Clarity CLEAR (CLEAR) 01/23/21 18:44 Urine pH 6.5 PH (5.0-7.5) 01/23/21 18:44 Ur Specific Bowie 1.020 (1.002-1.030) 01/23/21 18:44 Urine Protein 30 mg/dL (NEGATIVE) H 01/23/21 18:44 Urine Glucose (UA) NEGATIVE mg/dL (NEGATIVE) 01/23/21 18:44 Urine Ketones NEGATIVE mg/dL (NEGATIVE) 01/23/21 18:44 Urine Occult Blood TRACE-INTA (NEGATIVE) 01/23/21 18:44 Urine Nitrite NEGATIVE (NEGATIVE) 01/23/21 18:44 Urine Bilirubin NEGATIVE (NEGATIVE) 01/23/21 18:44 Urine Urobilinogen 0.2 (NORMAL) E.U./dL (NORMAL) 01/23/21 18:44 Ur Leukocyte Esterase NEGATIVE (NEGATIVE) 01/23/21 18:44 Urine RBC 0-5 /HPF (0-5) 01/23/21 18:44 Urine WBC 0-3 /HPF (0-3) 01/23/21 18:44 Ur Squamous Epith Cells RARE Squamous (<= Few) 01/23/21 18:44 Urine Bacteria None Seen /HPF (None Seen) 01/23/21 18:44 Ur Microscopic Review INDICATED 01/23/21 18:44 Urine Culture Comments NOT INDICATED 01/23/21 18:44 Nasal Adenovirus (PCR) NOT DETECTED 01/23/21 18:30 Nasal B. parapertussis DNA (PCR) NOT DETECTED 01/23/21 18:30 Nasal Coronavir 229E PCR NOT DETECTED 01/23/21 18:30 Nasal Coronavir HKU1 PCR NOT DETECTED 01/23/21 18:30 Nasal Coronavir NL63 PCR NOT DETECTED 01/23/21 18:30 Nasal Coronavir OC43 PCR NOT DETECTED 01/23/21 18:30 Nasal Enterovir/Rhinovir PCR NOT DETECTED 01/23/21 18:30 Nasal Influenza B PCR NOT DETECTED 01/23/21 18:30 Nasal Influenza A PCR NOT DETECTED 01/23/21 18:30 Nasal Parainfluen 1 PCR NOT DETECTED 01/23/21 18:30 Nasal Parainfluen 2 PCR NOT DETECTED 01/23/21 18:30 Nasal Parainfluen 3 PCR NOT DETECTED 01/23/21 18:30 Nasal Parainfluen 4 PCR NOT DETECTED 01/23/21 18:30 Nasal RSV (PCR) NOT DETECTED 01/23/21 18:30 Nasal B.pertussis DNA PCR NOT DETECTED 01/23/21 18:30 Nasal C.pneumoniae (PCR) NOT DETECTED 01/23/21 18:30 Jhonatan Human Metapneumo PCR NOT DETECTED 01/23/21 18:30 Nasal M.pneumoniae (PCR) NOT DETECTED 01/23/21 18:30 Nasal SARS-CoV-2 (PCR) NOT DETECTED 01/23/21 18:30 ABX Reporting Has patient been on IV antibiotics over the past 48 hours?: Yes
[2021-01-24] MEDS ORDERED: DROPERETTE EACHEYE PRN (19:53)
[2021-01-24] MEDS ORDERED: CARBOXYMETHYLCELLULOSE SODIUM EACHEYE PRN (19:53)
[2021-01-24] MEDS ORDERED: CARBOXYMETHYLCELLULOSE OPHTH DROPS EACHEYE PRN (20:21)
[2021-01-24] MEDS: APIXABAN 5 MG TABLET PO SCH (20:46)
[2021-01-24] MEDS: traZODone 50 MG TABLET PO SCH (20:46)
[2021-01-24] MEDS: diltiaZEM CD 180 MG CAPSULE PO SCH (20:46)
[2021-01-24] MEDS ORDERED: TRAZODONE HCL 100 MG PO SCH (21:00)
[2021-01-24] MEDS: oxyCODONE 5 MG TABLET PO PRN (21:37)
[2021-01-25] MEDS: PIPERACILLIN/TAZOBACTAM 3.375 GM in SODIUM CHLORIDE 0.9% MINIBAG 100 ML IV SCH ×3 (00:26→16:14)
[2021-01-25] MEDS: SODIUM CHLORIDE 0.9% 1,000 ML IV SCH ×2 (00:29→10:37)
[2021-01-25] MEDS: SODIUM CHLORIDE FLUSH 0.9% 10 ML SYRINGE IVP SCH ×3 (01:47→16:14)
[2021-01-25] MEDS: ACETAMINOPHEN 325 MG TABLET PO PRN ×3 (02:12→18:20)
[2021-01-25 05:09] LABS: BASOPHILS % (AUTO) 0.2 %; EOSINOPHILS % (AUTO) 0.8 %; HCT - HEMATOCRIT 32.6 % (42.0-52.0); HGB - HEMOGLOBIN 10.6 g/dL (14.0-18.0); LYMPHOCYTES # (AUTO) 1.1 10^3/uL (1.5-3.5); LYMPHOCYTES % (AUTO) 19.7 %; MEAN CORPUSCULAR HEMOGLOBIN 30.7 pg (27.0-31.0); MEAN CORPUSCULAR HGB CONC 32.5 g/dL (32.0-36.0); MEAN CORPUSCULAR VOLUME 94.5 fL (80.0-94.0); MEAN PLATELET VOLUME 9.8 fL (7.4-11.4); MONOCYTES # (AUTO) 0.5 10^3/uL (0.0-1.0); MONOCYTES % (AUTO) 8.6 %; NEUTROPHILS # (AUTO) 3.7 10^3/uL (1.5-6.6); NEUTROPHILS % (AUTO) 69.6 %; PLT - PLATELET COUNT 133 10^3/uL (130-450); RED BLOOD COUNT 3.45 10^6/uL (4.70-6.10); RED CELL DISTRIBUTION WIDTH 14.9 % (12.0-15.0); WHITE BLOOD COUNT 5.3 x10^3/uL (4.8-10.8)
[2021-01-25 05:19] LABS: CALCIUM 8.1 mg/dL (8.5-10.3); CREATININE 0.7 mg/dL (0.6-1.2); POTASSIUM 3.2 mmol/L (3.5-5.0)
[2021-01-25] MEDS: oxyCODONE 5 MG TABLET PO PRN ×3 (05:36→21:31)
[2021-01-25] MEDS: APIXABAN 5 MG TABLET PO SCH ×2 (08:37→21:31)
[2021-01-25] MEDS: diltiaZEM CD 180 MG CAPSULE PO SCH ×2 (08:37→21:31)
[2021-01-25] MEDS ORDERED: MULTIVITAMIN TABLET PO SCH (09:00)
[2021-01-25] MEDS ORDERED: CITALOPRAM HYDROBROMIDE 20 MG TABLET PO SCH (09:00)
[2021-01-25] MEDS ORDERED: FUROSEMIDE 20 MG TABLET PO SCH (09:00)
[2021-01-25] MEDS ORDERED: LENALIDOMIDE 25 MG PO SCH (09:00)
--- NOTE | 2021-01-25 20:44 | DISCHARGE SUMMARY ---
Discharge Summary Admit Date: 01/23/21 Discharge Date: 01/25/21 Discharging Provider: Mario Weiss Primary Care Provider: Logan Villaseñor Code Status: Attempt Resuscitation Condition at Discharge: Stable Discharge Disposition: 01 Home, Self Care - DIAGNOSES Admission Diagnoses: Cellulitis, scrotal Multiple myeloma History of pulmonary embolism Depression Hypertension Discharge Diagnoses with Status of Each Condition: Cellulitis, scrotal: 2/2 Strep. Improving. Discharged with Augmentin 875/127 po bid X 10 days Multiple myeloma: Chronic. Continue home meds. Follow up with oncology History of pulmonary embolism: Chronic. Continue taking eliquis Depression: Chronic. Resume home medication Hypertension: Chronic. Resume home medication - HPI History of Present Illness: Patient is 70-year-old male with medical history significant for multiple myeloma, pulmonary embolism on Eliquis, hypertension, depression who presented to the ED with fever and rigors for 2 days. He was finally brought in by his today because he became incoherent this morning. He reports being diaphoretic as well. He was noted to have a temperature of 39.2 upon presentation to the ED. Work-up included a CBC which was largely unremarkable however the patient has a significant scrotal erythema. As a result he was presented for admission for further treatment. At bedside he complains of an excruciating headache from the back of his neck to his occiput. He denies chest pain, dyspnea, abdominal pain, nausea or vomiting. The rest of his history is unremarkable. - HOSPITAL COURSE Hospital Course: Patient was admitted and started on Zosyn and vancomycin. Blood cultures drawn at admission grew Streptococcus PT so vancomycin was discontinued. Patient was on Zosyn for a little over 2 days. At discharge Augmentin 875/125 mg p.o. twice daily for 10 days was ordered. Patient complained of head pain for which a CT of the head was negative for any intracranial findings or lytic lesions in the skull. Patient's home pain medication was resumed. Tylenol was added for pain and or fever. The rest of the patient's hospital stay was unremarkable. He was discharged in stable condition He is to call his Oncologist for follow up and follow up with his PCP as sche duled - ALLERGIES Allergies/Adverse Reactions: Allergies Allergy/AdvReac Type Severity Reaction Status Date / Time Sulfa (Sulfonamide Allergy Severe Unknown Verified 01/23/21 18:16 Antibiotics) - MEDICATIONS Home Medications: Ambulatory Orders Medication Instructions Recorded Confirmed Citalopram Hydrobromide 20 mg PO DAILY 07/26/19 01/24/21 [Citalopram HBr] Multivitamin [Theragran] 1 each PO DAILY 07/26/19 01/24/21 Trazodone HCl 100 mg PO QPM 07/26/19 01/24/21 dexAMETHasone [Decadron] 40 mg PO Q7D 07/26/19 01/24/21 Carboxymethylcellulose Sodium 1 drops EACHEYE Q2H PRN 07/27/19 01/24/21 [Restore Plus] Lenalidomide [Revlimid] 25 mg PO DAILY 07/27/19 01/24/21 dilTIAZem HCl [Diltiazem 24Hr ER 180 mg PO BID 07/27/19 01/24/21 (Cd)] oxyCODONE [Roxicodone] 10 mg PO TID PRN 08/12/20 01/24/21 Apixaban [Eliquis] 5 mg PO BID #30 tablet 08/14/20 01/24/21 Furosemide [Lasix] 20 mg PO DAILY 01/24/21 01/24/21 Amox/Clav 875/125 [Augmentin 1 tablet PO Q12H 10 Days #20 tablet 01/25/21 875/125 Tab] - PHYSICAL EXAM AT DISCHARGE General Appearance: positive: Alert, Mild distress Eyes Bilateral: positive: PERRL, EOMI ENT: positive: No signs of dehydration Neck: positive: No JVD, Trachea midline Respiratory: positive: Chest non-tender, No respiratory distress, Breath sounds nml. negative: Wheezes, Rales, Rhonchi Cardiovascular: positive: Regular rate & rhythm, No murmur Abdomen: positive: Non-tender, Nml bowel sounds, No distention. negative: Guarding, Rebound Back: positive: Nml inspection Skin: positive: Color nml, No rash, Warm, Dry Extremities: positive: Non-tender, Full ROM, Nml appearance, No pedal edema Neurologic/Psychiatric: positive: Oriented x3, Mood/affect nml - LABS Result Diagrams: 01/25/21 04:56 01/25/21 04:56 - TIME SPENT Time Spent in Discharge (Minutes): 25
--- NOTE | 2021-01-25 20:48 | Discharge Plan ---
Discharge Plan Problem Reviewed?: Yes Disposition: Home, Self Care Condition: Stable Prescriptions: Amox/Clav 875/125 [Augmentin 875/125 Tab] 1 tablet PO Q12H 10 Days #20 tablet Diet: Regular Activity Restrictions: Activity as Tolerated Health Concerns: You presented to the ED 2 days ago with a fever of 39.2 C and shaking uncontrollably. You were diagnosed with scrotal cellulitis and started on antibiotics. Blood cultures were drawn which subsequently grew Streptococcus species. Your antibiotics were adjusted accordingly. Over 2 days of hospital stay your fever resolved and the rigors resolved. On the day of discharge you are very comfortable. You had also complained of head pain for which a CT scan of the brain was negative. You pain medication was continued and Tylenol added during your hospital stay for fever and pain as needed. You will be discharged with Augmentin 875/125 mg tablets to take 1 tablet p.o. twice daily x10 days. You have an upcoming appointment with your primary care physician. You advised to keep the appointment. You are also to contact your oncologist regarding the skipped days of your chemotherapy medication while you were in the hospital For recommendations on how to proceed with continuing the medication cycle. The above plan was discussed with you and your who is at bedside. He expressed understanding and are agreeable with the plan. Plan of Treatment: You presented to the ED 2 days ago with a fever of 39.2 C and shaking uncontrollably. You were diagnosed with scrotal cellulitis and started on antibiotics. Blood cultures were drawn which subsequently grew Streptococcus species. Your antibiotics were adjusted accordingly. Over 2 days of hospital stay your fever resolved and the rigors resolved. On the day of discharge you are very comfortable. You had also complained of head pain for which a CT scan of the brain was negative. You pain medication was continued and Tylenol added during your hospital stay for fever and pain as needed. You will be discharged with Augmentin 875/125 mg tablets to take 1 tablet p.o. twice daily x10 days. You have an upcoming appointment with your primary care physician. You advised to keep the appointment. You are also to contact your oncologist regarding the skipped days of your chemotherapy medication while you were in the hospital For recommendations on how to proceed with continuing the medication cycle. The above plan was discussed with you and your who is at bedside. He expressed understanding and are agreeable with the plan. Care Goals: You presented to the ED 2 days ago with a fever of 39.2 C and shaking uncontrollably. You were diagnosed with scrotal cellulitis and started on antibiotics. Blood cultures were drawn which subsequently grew Streptococcus species. Your antibiotics were adjusted accordingly. Over 2 days of hospital stay your fever resolved and the rigors resolved. On the day of discharge you are very comfortable. You had also complained of head pain for which a CT scan of the brain was negative. You pain medication was continued and Tylenol added during your hospital stay for fever and pain as needed. You will be discharged with Augmentin 875/125 mg tablets to take 1 tablet p.o. twice daily x10 days. You have an upcoming appointment with your primary care physician. You advised to keep the appointment. You are also to contact your oncologist regarding the skipped days of your chemotherapy medication while you were in the hospital For recommendations on how to proceed with continuing the medication cycle. The above plan was discussed with you and your who is at bedside. He expressed understanding and are agreeable with the plan. Assessment: You presented to the ED 2 days ago with a fever of 39.2 C and shaking uncontrollably. You were diagnosed with scrotal cellulitis and started on antibiotics. Blood cultures were drawn which subsequently grew Streptococcus species. Your antibiotics were adjusted accordingly. Over 2 days of hospital stay your fever resolved and the rigors resolved. On the day of discharge you are very comfortable. You had also complained of head pain for which a CT scan of the brain was negative. You pain medication was continued and Tylenol added during your hospital stay for fever and pain as needed. You will be discharged with Augmentin 875/125 mg tablets to take 1 tablet p.o. twice daily x10 days. You have an upcoming appointment with your primary care physician. You advised to keep the appointment. You are also to contact your oncologist regarding the skipped days of your chemotherapy medication while you were in the hospital For recommendations on how to proceed with continuing the medication cycle. The above plan was discussed with you and your who is at bedside. He expressed understanding and are agreeable with the plan. No Smoking: If you smoke, Please STOP! Call for help. Follow-up with: CHELSEA BARRIENTOS DO [Primary Care Provider] -
[2021-01-25] MEDS ORDERED: AMOX/CLAV 875 MG/125 MG TABLET PO STA (20:52)
[2021-01-25] MEDS: traZODone 50 MG TABLET PO SCH (21:57)
[2021-01-25 21:58] VITALS: BP 113/72
== END 2021-01-25 22:16 | disposition home or self-care (01) | DRG 872 ==
LOC: EDUNIT# → ED 17:55 → MS3 22:12
PROVIDERS: ADMIT Internal Medicine; ATTEND Internal Medicine
DX: A40.8 Other streptococcal sepsis (principal); C90.00 Multiple myeloma not having achieved remission; N49.2 Inflammatory disorders of scrotum; R51.9 Headache, unspecified; I10 Essential (primary) hypertension; F32.9 Major depressive disorder, single episode, unspecified; J45.909 Unspecified asthma, uncomplicated; G89.29 Other chronic pain; M79.604 Pain in right leg; Z79.52 Long term (current) use of systemic steroids; Z79.01 Long term (current) use of anticoagulants; Z86.711 Personal history of pulmonary embolism; Z87.01 Personal history of pneumonia (recurrent); Z87.828 Personal history of other (healed) physical injury and trauma; Z85.51 Personal history of malignant neoplasm of bladder; Z87.891 Personal history of nicotine dependence
CPT/HCPCS: 0202U; 36415; 51701; 70450; 71045; 74177; 76705; 80048; 80053; 81001; 83605; 83690; 83735; 85025; 85610; 85730; 87040; 87077; 87150; 87181; 96365; 96366; 96368; 97161; 99284; 99285; A9270; J3370; J8499; Q9967; 81003; 87086

== ENCOUNTER 2021-02-18 12:13 | Outpatient (CLI) | payer OTHER ==
[2021-02-18 15:34] LABS: BASOPHILS % (AUTO) 0.4 %; EOSINOPHILS # (AUTO) 0.1 10^3/uL (0.0-0.7); EOSINOPHILS % (AUTO) 2.1 %; HCT - HEMATOCRIT 38.4 % (42.0-52.0); HGB - HEMOGLOBIN 12.5 g/dL (14.0-18.0); LYMPHOCYTES # (AUTO) 1.5 10^3/uL (1.5-3.5); MEAN CORPUSCULAR HEMOGLOBIN 31.3 pg (27.0-31.0); MEAN CORPUSCULAR HGB CONC 32.6 g/dL (32.0-36.0); MEAN CORPUSCULAR VOLUME 96.2 fL (80.0-94.0); MEAN PLATELET VOLUME 11.2 fL (7.4-11.4); MONOCYTES # (AUTO) 0.6 10^3/uL (0.0-1.0); MONOCYTES % (AUTO) 11.4 %; PLT - PLATELET COUNT 122 10^3/uL (130-450); RED BLOOD COUNT 3.99 10^6/uL (4.70-6.10); WHITE BLOOD COUNT 5.3 x10^3/uL (4.8-10.8)
[2021-02-18 15:42] LABS: ALBUMIN 4.1 g/dL (3.2-5.5); ALBUMIN/GLOBULIN RATIO 1.5 (1.0-2.2); BILIRUBIN,TOTAL 1.1 mg/dL (0.2-1.0); CALCIUM 8.9 mg/dL (8.5-10.3); CREATININE 0.8 mg/dL (0.6-1.2); POTASSIUM 3.6 mmol/L (3.5-5.0); TOTAL PROTEIN 6.8 g/dL (6.7-8.2)
[2021-02-20 23:11] LABS: ALBUMIN 3.7 g/dL (3.8-4.8); ALPHA 1 GLOBULIN 0.3 g/dL (0.2-0.3); ALPHA 2 GLOBULIN 0.9 g/dL (0.5-0.9); BETA 1 GLOBULIN 0.4 g/dL (0.4-0.6); BETA 2 GLOBULIN 0.2 g/dL (0.2-0.5); GAMMA GLOBULIN 0.5 g/dL (0.8-1.7)
[2021-02-23 19:42] LABS: KAPPA/LAMBDA LC FREE RATIO 0.92 (0.26-1.65)
== END 2021-02-18 12:14 | disposition home or self-care (01) ==
LOC: LAB.S 12:13
PROVIDERS: ATTEND Internal Medicine Hematology & Oncology
DX: C90.02 Multiple myeloma in relapse (principal)
CPT/HCPCS: 36415; 80053; 83883; 84155; 84165; 85025

== ENCOUNTER 2021-05-25 12:52 | Outpatient (CLI) | payer OTHER ==
[2021-05-25 20:11] LABS: BILIRUBIN,URINE NEGATIVE (NEGATIVE); GLUCOSE, URINE (UA) NEGATIVE (NEGATIVE); KETONES,URINE (UA) NEGATIVE (NEGATIVE); LEUKOCYTE ESTERASE, URINE NEGATIVE (NEGATIVE); NITRITE,URINE NEGATIVE (NEGATIVE); OCCULT BLOOD,URINE NEGATIVE (NEGATIVE); PROTEIN,URINE NEGATIVE (NEGATIVE); UROBILINOGEN,URINE 0.2 (NORMAL) E.U./dL (NORMAL)
[2021-05-25 20:18] LABS: CLARITY,URINE CLEAR (CLEAR)
== END 2021-05-25 12:53 | disposition home or self-care (01) ==
LOC: LAB.S 12:52
DX: C67.9 Malignant neoplasm of bladder, unspecified (principal)
CPT/HCPCS: 81001; 81003; 87086

== ENCOUNTER 2021-07-16 15:00 | Emergency (ER) | payer OTHER ==
--- NOTE | 2021-07-16 16:10 | XRAY Report ---
PROCEDURE: Chest 1 View X-Ray INDICATIONS: Chest pain TECHNIQUE: One view of the chest was acquired. COMPARISON: 01/23/2021 FINDINGS: Surgical changes and devices: None. Lungs and pleura: No pleural effusions or pneumothorax. Lungs are clear. Mediastinum: Mediastinal contours appear normal. Heart size is normal. Bones and chest wall: Moderate to severe degenerative changes in the right glenohumeral joint. No spring picious bony lesions. Overlying soft tissues appear unremarkable. IMPRESSION: No acute cardiopulmonary process demonstrated radiographically. Reviewed by: Vincent Nolen MD on 07/16/2021 4:09 PM PST Approved by: Vincent Nolen MD on 07/16/2021 4:[address] [facility] Station ID: [id number]
[2021-07-16 16:15] LABS: BASOPHILS % (AUTO) 0.2 %; EOSINOPHILS # (AUTO) 0.1 10^3/uL (0.0-0.7); EOSINOPHILS % (AUTO) 1.1 %; HCT - HEMATOCRIT 36.8 % (42.0-52.0); LYMPHOCYTES # (AUTO) 1.1 10^3/uL (1.5-3.5); LYMPHOCYTES % (AUTO) 23.1 %; MEAN CORPUSCULAR HEMOGLOBIN 31.1 pg (27.0-31.0); MEAN CORPUSCULAR HGB CONC 32.6 g/dL (32.0-36.0); MEAN CORPUSCULAR VOLUME 95.3 fL (80.0-94.0); MEAN PLATELET VOLUME 10.7 fL (7.4-11.4); MONOCYTES # (AUTO) 0.7 10^3/uL (0.0-1.0); MONOCYTES % (AUTO) 16.2 %; NEUTROPHILS # (AUTO) 2.7 10^3/uL (1.5-6.6); NEUTROPHILS % (AUTO) 58.3 %; PLT - PLATELET COUNT 129 10^3/uL (130-450); RED BLOOD COUNT 3.86 10^6/uL (4.70-6.10); RED CELL DISTRIBUTION WIDTH 15.4 % (12.0-15.0); WHITE BLOOD COUNT 4.6 x10^3/uL (4.8-10.8)
[2021-07-16 16:23] LABS: ALBUMIN 3.9 g/dL (3.2-5.5); ALBUMIN/GLOBULIN RATIO 1.4 (1.0-2.2); BILIRUBIN,TOTAL 0.9 mg/dL (0.2-1.0); CALCIUM 9.2 mg/dL (8.5-10.3); CREATININE 0.9 mg/dL (0.6-1.2); POTASSIUM 3.6 mmol/L (3.5-5.0); TOTAL PROTEIN 6.6 g/dL (6.7-8.2)
[2021-07-16] MEDS ORDERED: IOPAMIDOL-300 100 ML VIAL ONE (16:57)
--- NOTE | 2021-07-16 16:59 | Ultrasound Report ---
PROCEDURE: Duplex Ext Veins Right INDICATIONS: edema/pain/hx PE TECHNIQUE: Real-time imaging, as well as color and pulse Doppler interrogation, were performed of the lower extr emity deep veins from the inguinal ligament to the popliteal fossa. COMPARISON: None. FINDINGS: The deep veins are normally compressible, and free of intraluminal thrombus. Color and pu lse Doppler demonstrate normal phasic intraluminal flow. There is normal augmentation response to di stal compression maneuver. IMPRESSION: No sonographic evidence of DVT. Reviewed by: Vincent Nolen MD on 07/16/2021 4:57 PM PST Approved by: Vincent Nolen MD on 07/16/2021 4:57 PM PST Station ID: [id number]
--- NOTE | 2021-07-16 17:47 | CT Report ---
PROCEDURE: ANGIO CHEST W/WO INDICATIONS: SOB, elev d-dimer, h/o PE CONTRAST: IV CONTRAST: Isovue 300 ml: 80 PO CONTRAST: *NO PO CONTRAST TECHNIQUE: After the administration of intravenous contrast, 2 mm axial images were acquired from the pulmonary apices to the posterior costophrenic angles during the arterial phase. In addition, 1 mm lung kernel and 5 mm soft tissue kernel reconstructions were performed. 3-dimensional coronal oblique maximum int ensity projection (MIP) reformats, 8 mm axial MIP, and 5 mm coronal and sagittal MPR reformats were t hen performed through the thorax. For radiation dose reduction, the following was used: automated exp osure control, adjustment of mA and/or kV according to patient size. COMPARISON: CT anterior chest 08/12/2020, CT chest 07/26/2019. FINDINGS: Image quality: Excellent. Pulmonary arteries: Pulmonary arteries demonstrate no intraluminal filling defects to suggest centra l pulmonary embolism. There is mild enlargement of the pulmonary arteries, with the main pulmonary ar radha measuring up to 3.2 cm. Lungs and pleura: There are indistinct subpleural areas of groundglass opacity within the right lower lobe consistent with scarring. There is also mild linear scarring within the left lung base. No pleu ral effusions or pneumothorax. Central and peripheral airways are patent. Mediastinum: Heart size is normal, without pericardial effusion. No mediastinal or hilar adenopathy . Thoracic aorta is normal in caliber and enhancement. Esophagus is normal in caliber, without hiat al hernia. Bones and chest wall: There is an expansile lucent lesion within the right scapula without cortical b azra destruction which appears similar in appearance compared to the prior studies. A lucent lesion wi thin the T1 vertebral body and sclerosis within the adjacent right first rib with cortical thickening also appears similar to the prior exams. Ribs and thoracic spine appear intact throughout. No axill krish or supraclavicular adenopathy. The thyroid demonstrates no discrete nodules. Abdomen: Visualized upper abdomen demonstrate calcified gallstones within the gallbladder. No associ ated gallbladder wall thickening or pericholecystic fat stranding. IMPRESSION: 1. No evidence of pulmonary embolism. Mild enlargement of the pulmonary arteries suggestive of pulmon krish arterial hypertension. 2. No acute airspace disease. 3. Expansile lucent lesions within the right scapula and T1 vertebral body without associated bony de struction redemonstrated. The findings are nonspecific and the differential includes Paget's disease or fibrous dysplasia. Given stability over time, a benign process is favored. Mild sclerosis and yanna ical thickening within the right first rib also appears unchanged. Reviewed by: Janusz Dumont MD on 07/16/2021 4:45 PM [place] Approved by: Janusz Dumont MD on 07/16/2021 4:45 PM [facility] Station ID: [id number]
--- NOTE | 2021-07-16 18:05 | ED Physician Documentation ---
History of Present Illness - Stated complaint Stated Complaint: RT LEG PX - Chief complaint Chief Complaint: Ext Problem - History obtained from History obtained from: Patient, Family - Additonal information Additional information: Patient comes emergency department chief complaint of right lower extremity pain and swelling. Both lower extremities are swollen but the right seems somewhat worse than the left. Patient has also had some shortness of breath, though this has been mild. As a separate issue, the patient has been having low back pain, which has been bothering him a lot lately. He is known to have lytic lesions in that area of his spine, which is in the low thoracic/superior lumbar area. No recent fever or chills. No cough. The patient has a history of multiple myeloma and was diagnosed with multiple PEs back in August. It is not clear whether the patient ever had a clot in his extremities as a source for the PEs. Patient has been on Eliquis and has not had further issues since. No other complaints at this time. Review of Systems Ten Systems: 10 systems reviewed and negative Constitutional: reports: Reviewed and negative Eyes: reports: Reviewed and negative Ears: reports: Reviewed and negative Nose: reports: Reviewed and negative Throat: reports: Reviewed and negative Cardiac: reports: Reviewed and negative Respiratory: reports: Dyspnea (mild) GI: reports: Reviewed and negative : reports: Reviewed and negative Skin: reports: Reviewed and negative Musculoskeletal: reports: Back pain, Extremity pain, Extremity swelling Neurologic: reports: Reviewed and negative Psychiatric: reports: Reviewed and negative Endocrine: reports: Reviewed and negative Immunocompromised: reports: Reviewed and negative PD PAST MEDICAL HISTORY - Past Medical History Past Medical History: Yes Cardiovascular: Hypertension Respiratory: Asthma, Pneumonia Neuro: Tremors Endocrine/Autoimmune: None GI: GI bleed : Other Psych: None Musculoskeletal: None, Other Derm: None - Past Surgical History Past Surgical History: Yes - Present Medications Home Medications: Ambulatory Orders Medication Instructions Recorded Confirmed Citalopram Hydrobromide 20 mg PO DAILY 07/26/19 01/24/21 [Citalopram HBr] Multivitamin [Theragran] 1 each PO DAILY 07/26/19 01/24/21 Trazodone HCl 100 mg PO QPM 07/26/19 01/24/21 dexAMETHasone [Decadron] 40 mg PO Q7D 07/26/19 01/24/21 Carboxymethylcellulose Sodium 1 drops EACHEYE Q2H PRN 07/27/19 01/24/21 [Restore Plus] Lenalidomide [Revlimid] 25 mg PO DAILY 07/27/19 01/24/21 dilTIAZem HCl [Diltiazem 24Hr ER 180 mg PO BID 07/27/19 01/24/21 (Cd)] oxyCODONE [Roxicodone] 10 mg PO TID PRN 08/12/20 01/24/21 Apixaban [Eliquis] 5 mg PO BID #30 tablet 08/14/20 01/24/21 Furosemide [Lasix] 20 mg PO DAILY 01/24/21 01/24/21 Amox/Clav 875/125 [Augmentin 1 tablet PO Q12H 10 Days #20 tablet 01/25/21 875/125 Tab] - Allergies Allergies/Adverse Reactions: Allergies Allergy/AdvReac Type Severity Reaction Status Date / Time Sulfa (Sulfonamide Allergy Severe Unknown Verified 07/16/21 15:02 Antibiotics) - Social History Does the pt smoke?: No Smoking Status: Never smoker Does the pt drink ETOH?: No Does the pt have substance abuse?: No - Immunizations Immunizations are current?: Yes - POLST Patient has POLST: No POLST Status: Full Code PD ED PE NORMAL - Vitals Vital signs reviewed: Yes - General General: Alert and oriented X 3, No acute distress, Well developed/nourished - HEENT HEENT: Atraumatic, PERRL, EOMI, Moist mucous membranes - Neck Neck: Supple, no meningeal sign - Cardiac Cardiac: RRR, No murmur, Strong equal pulses - Respiratory Respiratory: No respiratory distress, Clear bilaterally - Abdomen Abdomen: Soft, Non tender, Non distended - Derm Derm: Normal color, Warm and dry, No rash - Extremities Extremities: No deformity, No calf tenderness / cord, Other (2+ pitting edema bilateral lower extremities, slightly worse on right.) - Neuro Neuro: Alert and oriented X 3, funding coordinator 2-12 intact, Normal speech - Psych Psych: Normal mood, Normal affect Results - Vitals Vitals: Oxygen O2 Source Room air - Labs Labs: Laboratory Tests 07/16/21 07/16/21 07/16/21 16:01 16:01 16:01 WBC 4.6 L RBC 3.86 L Hgb 12.0 L Hct 36.8 L MCV 95.3 H MCH 31.1 H MCHC 32.6 RDW 15.4 H Plt Count 129 L MPV 10.7 Neut # (Auto) 2.7 Lymph # (Auto) 1.1 L [place] # (Auto) 0.7 Eos # (Auto) 0.1 Baso # (Auto) 0.0 Absolute Nucleated RBC 0.00 Nucleated RBC % 0.0 D-Dimer 338.2 H Sodium 139 Potassium 3.6 Chloride 99 L Carbon Dioxide 29 Anion Gap 11.0 BUN 21 H Creatinine 0.9 Estimated GFR (MDRD) 83 L Glucose 228 H Calcium 9.2 Total Bilirubin 0.9 AST 19 ALT 35 Alkaline Phosphatase 38 L B-Natriuretic Peptide Total Protein 6.6 L Albumin 3.9 Globulin 2.7 Albumin/Globulin Ratio 1.4 Lipase 33 07/16/21 16:01 WBC RBC Hgb Hct MCV MCH MCHC RDW Plt Count MPV Neut # (Auto) Lymph # (Auto) [place] # (Auto) Eos # (Auto) Baso # (Auto) Absolute Nucleated RBC Nucleated RBC % D-Dimer Sodium Potassium Chloride Carbon Dioxide Anion Gap BUN Creatinine Estimated GFR (MDRD) Glucose Calcium Total Bilirubin AST ALT Alkaline Phosphatase B-Natriuretic Peptide 139 H Total Protein Albumin Globulin Albumin/Globulin Ratio Lipase - Rads (name of study) CXR Radiology: Final report received, EMP read indepedently, See rad report (neg) US RLE Radiology: Final report received, See rad report (neg) CTA chest Radiology: Final report received, See rad report (no PE or lung pathology) PD MEDICAL DECISION MAKING - ED course Complexity details: reviewed old records, reviewed results, re-evaluated patient, considered differential, d/w patient, d/w family ED course: Patient was worked up with laboratory studies, Which showed a mildly elevated BNP and moderately elevated D-dimer. Chest x-ray is negative. Ultrasound of the right lower extremity was also negative. CTA showed no PE, but did show the continued presence of lytic lesions in the patient's spine. The patient had declined analgesia in the emergency department, and we did discuss all of the above findings. We will increase his Lasix and have him continue wearing his pressure stockings to help with his swollen feet. We have discussed pain control at home, as well. We have also discussed the usual indications for return. Departure - Departure Disposition: 01 Home, Self Care Clinical Impression: Bilateral lower extremity edema CHF (congestive heart failure) Qualifiers: Heart failure type: unspecified Heart failure chronicity: chronic Qualified Code(s): I50.9 - Heart failure, unspecified Dyspnea Qualifiers: Dyspnea type: dyspnea on exertion Qualified Code(s): R06.00 - Dyspnea, unspecified Leg pain Qualifiers: Laterality: right Qualified Code(s): M79.604 - Pain in right leg Back pain Qualifiers: Back pain location: low back pain Chronicity: chronic Back pain laterality: midline Sciatica presence: without sciatica Qualified Code(s): M54.50 - Low back pain, unspecified Condition: Stable Instructions: ED CHF General, ED Muscle Pain Leg Cramps, ED Sacroiliitis Comments: The chest x-ray is clear and the CT scan does not show any blood clots. The ultrasound of the right leg does not show any blood clots either. The lab for congestive heart failure is mildly elevated and given the ongoing lower extremity swelling and the sense of shortness of breath, it may be that you have a small amount of underlying congestive heart failure. As such, we can increase the morning dose of Lasix from 20 mg to 40 mg. Please continue to elevate the legs and use the pressure stockings, as well. If your edema subsides and your shortness of breath seems to be a little better, then you can scale your Lasix back again if you would like. You may also follow-up with your primary care physician to discuss what to do about these issues in the long-term. As far as your back pain, you can take your oxycodone as much as every 4 hours, and this may be a better plan for now during the waking hours. Once again this is on an as-needed basis, so you may scale back again if you wish, once your pain is under better control. Discharge Date/Time: 07/16/21 18:23
[2021-07-16] MEDS ORDERED: IOPAMIDOL-300 100 ML VIAL IVP ONE (18:13)
[2021-07-16 18:23] VITALS: BP 115/101
== END 2021-07-16 18:23 | disposition home or self-care (01) ==
LOC: ED 15:00
DX: I11.0 Hypertensive heart disease with heart failure (principal); I50.9 Heart failure, unspecified; M79.604 Pain in right leg; M54.50 Low back pain, unspecified
CPT/HCPCS: 36415; 71045; 71275; 80053; 83690; 83880; 85025; 85379; 93971; 99283; 99284; Q9967

== ENCOUNTER 2022-06-04 08:00 | Outpatient (CLI) | payer OTHER | END 2022-06-04 23:59 | disposition home or self-care (01) | LOC: LAB 08:00 | PROVIDERS: ATTEND Emergency Medicine | DX: L03.317 Cellulitis of buttock (principal); L02.31 Cutaneous abscess of buttock | CPT/HCPCS: 87070; 87205 ==

== ENCOUNTER 2022-06-28 08:00 | Outpatient (CLI) | payer OTHER | END 2022-06-28 23:59 | disposition home or self-care (01) | LOC: LAB.S 08:00 | PROVIDERS: ATTEND Emergency Medicine | DX: L72.3 Sebaceous cyst (principal) | CPT/HCPCS: 87070; 87205 ==

== ENCOUNTER 2023-08-13 08:00 | Outpatient (CLI) | payer OTHER | END 2023-08-13 23:59 | disposition home or self-care (01) | LOC: LAB.S 08:00 | PROVIDERS: ATTEND Emergency Medicine | DX: L72.3 Sebaceous cyst (principal) | CPT/HCPCS: 87070; 87205 ==

== ENCOUNTER 2025-03-27 15:05 | Observation (INO) ==
--- OUTSIDE RECORDS SUMMARY | 2025-03-27 16:10 | EXTERNAL MEDICAL SUMMARY RPT | Continuity of Care Document ---
Author Organization [facility] Address [address] [place] [address] Phone Problems date description facility 2025-03-27 11:37 Dyspnea, unspecified [facility] 2025-03-27 11:44 Dyspnea, unspecified [facility] 2025-03-27 12:38 Dyspnea, unspecified [facility] 2025-03-27 13:29 Dyspnea, unspecified [facility] 2025-03-27 14:24 Dyspnea, unspecified [facility] 2025-03-27 15:14 Dyspnea, unspecified [facility] Results/Labs test date facility value unit notes Result panel 1 NUCLEATED RED BLOOD CELLS AUTO 2025-03-27 13:35 [facility] 0.0 /100wbc (missing) BASOPHILS # (AUTO) 2025-03-27 13:35 [facility] 0.0 10 3/ul (missing) EOSINOPHILS # (AUTO) 2025-03-27 13:35 [facility] 0.0 10 3/ul (missing) NRBC ABSOLUTE COUNT (AUTO) 2025-03-27 13:35 [facility] 0.00 x10 3/ul (missing) MONOCYTES # (AUTO) 2025-03-27 13:35 [facility] 0.1 10 3/ul (missing) CREATININE 2025-03-27 13:35 [facility] 0.9 mg/dl As of February 2023 testing method has changed, this may include reference ranges. LYMPHOCYTES # (AUTO) 2025-03-27 13:35 [facility] 1.4 10 3/ul (missing) MEAN CORPUSCULAR VOLUME 2025-03-27 13:35 [facility] 103.1 fl (missing) HGB - HEMOGLOBIN 2025-03-27 13:35 [facility] 12.9 g /dl (missing) GLUCOSE 2025-03-27 13:35 [facility] 136 mg/dl As of February 2023 testing method has changed, this may include reference ranges. SODIUM 2025-03-27 13:35 [facility] 141 mmol/l (missing) RED CELL DISTRIBUTION WIDTH 2025-03-27 13:35 [facility] 15.0 % (missing) BUN - BLOOD UREA NITROGEN 2025-03-27 13:35 [facility] 18 mg/dl As of Feb testing method has changed, this may include reference ranges. PLT - PLATELET COUNT 2025-03-27 13:35 [facility] 189 10 3/ul (missing) NEUTROPHILS # (AUTO) 2025-03-27 13:35 [facility] 2.1 10 3/ul (missing) WHITE BLOOD COUNT 2025-03-27 13:35 [facility] 3.7 x10 3/ul (missing) RED BLOOD COUNT 2025-03-27 13:35 [facility] 3.85 10 6/ul (missing) MEAN CORPUSCULAR HGB CONC 2025-03-27 13:35 [facility] 32.5 g/dl (missing) MEAN CORPUSCULAR HEMOGLOBIN 2025-03-27 13:35 [facility] 33.5 pg (missing) D-DIMER OUTPATIENT 2025-03-27 13:35 [facility] 336.0 ng/ml Social History date description facility
--- NOTE | 2025-03-27 16:37 | ED Physician Documentation ---
History of Present Illness Stated complaint Stated Complaint: SOA Chief complaint Chief Complaint: Resp History obtained from History obtained from: Patient History of Present Illness Pain level max: 0 Pain level now: 0 Additonal information Additional information: 75-year-old male, history of COPD, increased work of breathing x 5 days. Feels like his inhaler is not helping. Went to the walk-in clinic and had laboratory testing and a chest x-ray performed. States they told him his D-dimer was high so sent him to the emergency department to "rule out PE". No chest pain. No leg pain. No swelling. No fevers. No chills. No cough or congestion. Does not use oxygen at home. Patient has a history of COPD, CHF and multiple myelo ma. Is on 60mg of Lasix at home. Review of Systems Constitutional Denies: Fever or Chills Ears, nose, mouth, and throat Denies: Neck pain Cardiovascular Denies: chest pain Respiratory Denies: Cough Gastrointestinal Denies: Abdominal pain or Vomiting Genitourinary Denies: Painful urination or Flank pain Musculoskeletal Denies: Back pain or Neck pain Meds/Allgy Home Medications Ambulatory Orders Medication Instructions Recorded Confirmed multivitamin with folic acid 400 1 ea PO DAILY 9 03/27/25 mcg tablet (Thera) trazodone 100 mg tablet 100 mg PO QPM 07/26/1903/27 apixaban 5 mg tablet (Eliquis) 5 mg PO BID 06/18/24 diltiazem HCl 180 mg 180 mg PO QAM 06/18/2403/27 capsule,extended release 24 hr fentanyl 25 mcg/hr transdermal 1 patch transdermal Q72 H 06/18/24 03/27/25 patch furosemide 20 mg tablet 60 mg PO DAILY 06/18/2403/09 Allergies Allergies Allergy/AdvReac Type Severity Reaction Status Date / Time Sulfa (Sulfonamide Allergy Severe Unknown Verified 03/27/25 15:14 Antibiotics) PFSH Active Problems All Active Problems (Updated 03/27/25 @ 21:20 by BECKY Torres) Chronic pain (Acute) Hypoxia (Acute) Pleural effusion (Acute) CHF exacerbation (Acute) Contusion of hip region (Acute) Gram-positive bacteremia (Acute) Cellulitis of scrotum (Acute) Pneumonia (Acute) Sepsis (Acute) Multiple myeloma (Chronic) Bladder cancer (Acute) Hypokalemia (Acute) Mass of right lung (Acute) HTN (hypertension) (Acute) Bilateral lower extremity edema (Acute) Full code status (Acute) Pulmonary emboli (Acute) Hypoxia (Acute) Acute respiratory failure with hypoxia (Acute) Chronic anemia (Acute) Asthma (Acute) Hypertension (Acute) Elevated troponin (Acute) Insomnia secondary to situational depression (Acute) Do not resuscitate discussion (Acute) Fever (Acute) Cellulitis (Acute) History of pulmonary embolism (Acute) Depression (Acute) Social History Social History Smoking Status: Never smoker If you are a former smoker, when did you quit? (Date/Year): 1974 Do you dip or chew tobacco?: No Do you vape?: No Patient requests smoking cessation consult: No Initiate information on smoking cessation: No Living arrangement: At home Living Condition: With spouse/s.o. and With family Do you feel safe in your home environment?: Yes History of physical, verbal, emotional, or financial abuse?: No Frequency: Occasional POLST Patient has POLST: No Exam Exam Vital Signs: Vital Signs x48h Temp Pulse Resp BP Pulse Ox O2 Flow Rate 03/27/25 18:50 90 91 L 2 03/27/25 18:28 85 19 109/79 2 03/27/25 16:52 84 20 03/27/25 15:54 86 19 135/98 H 94 3 03/27/25 15:29 36.9 C 91 18 96 3 03/27/25 15:20 18 03/27/25 15:11 36.3 C L 97 20 112/69 91 L Constitutional normal general appearance and no apparent distress HENMT oropharynx normal moist mucous membranes Eyes PERRL Neck/C-Spine visual inspection normal Respiratory normal respiratory effort diminished breath sounds bilaterally. Cardiovascular normal heart rate noted and regular rhythm noted Gastrointestinal abdomen soft to palpation, nontender to palpation and nondistended Genitourinary no CVA tenderness Extremities 1+ BLE edema Neurology speech normal Psychiatry mental status grossly normal and oriented x3 Skin skin color normal Results Vitals Vitals: Vital Signs - 24 hr 03/27/25 15:11 03/27/25 15:20 03/27/25 15:29 Temperature 36.3 C L 36.9 C Temperature Source Temporal Artery Scan Oral Pulse Rate 97 91 Respiratory Rate 20 18 18 Blood Pressure 112/69 O2 Saturation 91 L 96 O2 Source Room air Room air Nasal cannula If not protocol: Oxygen Flow, liters/minute 3 Pain Intensity 10 10 3 03/27/25 15:54 03/27/25 16:52 03/27/25 18:28 Temperature Temperature Source Pulse Rate 86 84 85 Respiratory Rate 19 20 19 Blood Pressure 135/98 H 109/79 O2 Saturation 94 O2 Source Nasal cannula Nasal cannula If not protocol: Oxygen Flow, liters/minute 3 2 Pain Intensity 1 3 03/27/25 18:50 Temperature Temperature Source Pulse Rate 90 Respiratory Rate Blood Pressure O2 Saturation 91 L O2 Source Nasal cannula If not protocol: Oxygen Flow, liters/minute 2 Pain Intensity 2 Oxygen O2 Source Nasal cannula PD Medical Decision Making ED course Complexity details: reviewed results, re-evaluated patient, considered differential and d/w patient ED course: Patient's D-dimer of 336 is below the age-adjusted cutoff of 385. CT angio chest does not show any PE. Does have bilateral pleural effusions with an elevated BNP. History of heart failure. Was given DuoNeb treatment and steroids here for possible COPD flare. Patient was given 40 mg of Lasix IV. He continues to be hypoxic, 88% while lying in bed on room air, placed back on oxygen. Patient will be admitted for IV diuresis and oxygen. Desaturated down to 84 with any movement. Discussed the case with the hospitalist who accepts. This document was made in part using voice recognition software. While efforts are made to proofread this document, sound alike and grammatical errors may occur. Discharge Plan Discharge Patient Disposition: ED Place in Observation Condition: Stable Clinical Impression: Pleural effusion, Hypoxia CHF exacerbation Qualifiers: Heart failure type: unspecified Qualified Code(s): I50.9 - Heart failure, unspecified Interventions: ED Admission Assessment Last Done: 03/27/25 19:31 Vitals documented within 30 minutes of discharge?: Yes
[2025-03-27] MEDS: IPRATROPIUM/ALBUTEROL 3 ML NEB INH STA (16:50)
[2025-03-27] MEDS ORDERED: FUROSEMIDE 40 MG/4 ML VIAL IVP STA (17:42)
--- NOTE | 2025-03-27 17:51 | CT Report ---
PROCEDURE: CT Angio Chest INDICATIONS: dyspea CONTRAST: OMNI 300 80ML TECHNIQUE: After the administration of intravenous contrast, 2 mm axial images were acquired from the pulmonary apices to the posterior costophrenic angles during the arterial phase. In addition, 1 mm lung kernel and 5 mm soft tissue kernel reconstructions were performed. 3-dimensional coronal oblique maximum intensity projection (MIP) reformats, 8 mm axial MIP, and 5 mm coronal and sagittal MPR reformats were then performed through the thorax. For radiation dose reduction, the following was used: automated exposure control, adjustment of mA and/or kV according to patient size. COMPARISON: Chest x-ray 03/27/2025., CT abdomen pelvis 01/23/2021, CT chest 2020 FINDINGS: Image quality: Excellent. Large vessels: No filling defects within the opacified pulmonary arteries, accounting for motion and contrast timing. No evidence of acute aortic syndrome or aortic aneurysm. Lungs and pleura: Mild to moderate bilateral effusions with superimposed consolidations, right greater than left. Mediastinum: Heart size is enlarged. No pericardial effusion. Main pulmonary artery is enlarged measuring 3.9 cm.. No mediastinal adenopathy by size criteria. Chest wall and lower neck: Thyroid is unremarkable. No axillary or supraclavicular adenopathy by size. Bones: Right lateral seventh rib with prominent erosive appearance. Upper Abdomen: Gallbladder lumen stones without wall thickening, unchanged. IMPRESSION: No pulmonary embolus. Bilateral effusions with superimposed opacities possibly representing atelectasis versus pneumonia. Recommend follow-up imaging after resolution of effusions to document absence of underlying mass of for potential malignant etiology. Erosive appearance of the right lateral seventh rib. It is new compared to 2020. Appearance raises concern for malignancy. Reviewed by: Ksenia Caldwell MD on 03/27/2025 5:50 PM PDT Approved by: Ksenia Caldwell MD on 03/27/2025 5:50 PM PDT Station ID: [id number]
[2025-03-27] MEDS: FUROSEMIDE 40 MG/4 ML VIAL IVP STA (18:55)
--- NOTE | 2025-03-27 19:17 | HISTORY & PHYSICAL EXAMINATION ---
Chief Complaint Chief Complaint Chief Complaint: AYALA History of Present Illness Admitted From Admitted From:: home History Obtained From Records Reviewed: [facility] notes, earlier today History obtained from: Patient and spouse History of Present Illness HPI Comment/Other: 75M with hx MM (currently not on tx), DVT, COPD and CHF. He takes 60mg po lasix daily at home. He has been having increasing dyspnea on exertion for the last week or so. he has not missed any doses of his lasix. He is [facility], goes to [facility] in [place]. He has a history of PE, and is on chronic Eliquis. Does not note any PND, but sleeps in a bed with the head elevated, so does not lay flat. He has noticed very slight swelling of his legs. Has been on home oxygen in the past, he is not clear why, but has not needed that for some time, and returned the equipment. He has chronic pain, back pain. he is on fentanyl patch for this He notes back pain when he stands after sitting for a period of time, not always. denies radiation of the pain to his legs. no longer drives due to chronic pain meds. does use a walking stick when he ambulates. He live at home with his , who he met in 1967. he is a [place] vet. They live with their son, his , and 3 grandchildren, so lots of support at home. He is a Zoroastrian, and as such does not want any blood products, and carries a medical POA, designating first his Estella, and then his daughter Rema as his surrogate decision makers. His POA states that he wants his life prolonged by all medically effective means. In other words, he is FULL CODE. Meds/Allgy Home Medications Ambulatory Orders Medication Instructions Recorded Confirmed multivitamin with folic acid 400 1 ea PO DAILY 9 03/27/25 mcg tablet (Thera) trazodone 100 mg tablet 100 mg PO QPM 07/26/1903/27 apixaban 5 mg tablet (Eliquis) 5 mg PO BID 06/18/24 diltiazem HCl 180 mg 180 mg PO QAM 06/18/2403/27 capsule,extended release 24 hr fentanyl 25 mcg/hr transdermal 1 patch transdermal Q72 H 06/18/24 03/27/25 patch furosemide 20 mg tablet 60 mg PO DAILY 06/18/2403/09 Allergies Allergies Allergy/AdvReac Type Severity Reaction Status Date / Time Sulfa (Sulfonamide Allergy Severe Unknown Verified 03/27/25 15:14 Antibiotics) PFSH Active Problems All Active Problems (Updated 03/27/25 @ 21:20 by BECKY Torres) Chronic pain (Acute) Hypoxia (Acute) Pleural effusion (Acute) CHF exacerbation (Acute) Contusion of hip region (Acute) Gram-positive bacteremia (Acute) Cellulitis of scrotum (Acute) Pneumonia (Acute) Sepsis (Acute) Multiple myeloma (Chronic) Bladder cancer (Acute) Hypokalemia (Acute) Mass of right lung (Acute) HTN (hypertension) (Acute) Bilateral lower extremity edema (Acute) Full code status (Acute) Pulmonary emboli (Acute) Hypoxia (Acute) Acute respiratory failure with hypoxia (Acute) Chronic anemia (Acute) Asthma (Acute) Hypertension (Acute) Elevated troponin (Acute) Insomnia secondary to situational depression (Acute) Do not resuscitate discussion (Acute) Fever (Acute) Cellulitis (Acute) History of pulmonary embolism (Acute) Depression (Acute) Social History Social History Smoking Status: Never smoker If you are a former smoker, when did you quit? (Date/Year): 1974 Do you dip or chew tobacco?: No Do you vape?: No Patient requests smoking cessation consult: No Initiate information on smoking cessation: No Living arrangement: At home Living Condition: With spouse/s.o. and With family Do you feel safe in your home environment?: Yes History of physical, verbal, emotional, or financial abuse?: No Frequency: Occasional POLST Patient has POLST: No Review of Systems Status of ROS: 10 or more systems reviewed and unremarkable except as noted in history and below Prior Level of Functionality: meets own personal care needs. Exam Exam Vital Signs: Vital Signs x48h Temp Pulse Pulse Resp BP BP Pulse Ox 03/27/25 20:00 36.8 C 94 16 122/91 H 94 03/27/25 18:50 90 91 L 03/27/25 18:28 85 19 109/79 03/27/25 16:52 84 20 03/27/25 15:54 86 19 135/98 H 94 03/27/25 15:29 36.9 C 91 18 96 03/27/25 15:20 18 03/27/25 15:11 36.3 C L 97 20 112/69 91 L O2 Flow Rate 03/27/25 20:00 3 03/27/25 18:50 2 03/27/25 18:28 2 03/27/25 16:52 03/27/25 15:54 3 03/27/25 15:29 3 03/27/25 15:20 03/27/25 15:11 Constitutional normal general appearance and no apparent distress obese, well groomed. HENMT normocephalic, head/scalp atraumatic and hearing grossly normal bilaterally Eyes conjunctivae normal and no scleral icterus Neck/C-Spine visual inspection normal and trachea midline Lymph no lymphadenopathy noted Chest inspection of chest normal Respiratory breath sounds equal bilaterally, normal respiratory effort and no use of accessory muscles decreased breath sounds at bases bilaterally- saturations in the low 90's in bed, but when he stands at bedside, hypoxic down to 86% by my observation Cardiovascular normal heart rate noted and regular rhythm noted I did not note any pitting edema on exam Gastrointestinal abdomen soft to palpation Extremities normal to inspection and full ROM 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 His baseline BNP is around 100, his BNP today is about 600. He also had an elevated D-dimer, this lab was drawn at the walk-in clinic. This patient is on Eliquis chronically. His CTA of the thorax does not show any pulmonary emboli, however he does have bilateral pleural effusions probably related to the CHF exacerbation. He has not missed any doses of Lasix, he and his both confirm that he is on 60 mg oral Lasix every day. This patient's hypoxia is due to a CHF exacerbation. I will treat him as detailed below. He is currently on supplemental oxygen, 3 L via nasal cannula. Patient was discussed with Dr. Rivera in the emergency department decision was made to admit him to observation status. (2) CHF exacerbation: Plan: Progressive AYALA over 1 week with bilateral pleural effusions and pulmonary edema noted on CTA of the chest. Elevated BNP at 600. When patient's baseline is around 100. He does not have any renal dysfunction at this time. He was given Lasix 40 mg IV in the emergency department and continues to require supplemental oxygen. I am admitting this patient to observation status for treatment of acute CHF exacerbation. I am giving him an additional 40 mg of Lasix 6 hours after his initial dose and then will repeat that dose again in 6 hours. I have placed him on 1500 mL of fluid restriction. I will order a BMP for the morning to monitor his renal function, his potassium as well as his sodium. I will probably complete an oxygen desaturation test in the morning assuming that his diuresis appears adequate by other clinical indicators. Qualifiers: Heart failure type: unspecified Qualified Code(s): I50.9 - Heart failure, unspecified (3) Multiple myeloma: Plan: He has a history of multiple myeloma. He is currently off all therapy at this time. His multiple myeloma has been stable. However, his CTA of the chest does show an erosive lesion at the right lateral seventh rib. This will need outpatient follow-up. Additionally there are bilateral pleural effusions with superimposed opacities need follow-up imaging after resolution of effusions to document the absence of an underlying mass in this patient with a history of multiple myeloma. I will defer this to the primary care provider who is CCed on this note. Qualifiers: Multiple myeloma remission status: not in remission Qualified Code(s): C90.00 - Multiple myeloma not having achieved remission (4) History of pulmonary embolism: Plan: History of PE on chronic Eliquis therapy. I have continued this while the patient is admitted. (5) Hypertension: Plan: He is on diltiazem CD at home, I have reordered this medication. Qualifiers: Hypertension type: essential hypertension Qualified Code(s): I10 - Essential (primary) hypertension (6) Chronic pain: Plan: History of chronic pain, very stable on 25 mcg fentanyl patch changed to every 72 hours. He is due for patch change this evening and we will do this. I have noted to the nursing staff to please remove the old patch at the time that the new one is applied. I have spent 78 minutes in the care of this patient today. This includes time [id number], review and ordering of diagnostic imaging and laboratory studies and consultation with other providers. Monitoring the patient's signs symptoms, evaluation of medication effectiveness and patient's response to treatment. Lab Results Lab results reviewed: Yes Diagnostic Imaging Results Diagnostic Imaging Results Comments: CTA thorax shows no PE but bilateral pleural effusions, cannot rule out underlying lesion. also noted, errosive appearance of the right lateral 7th rib- for this reason, followup is recommended in the outpatient setting. EKG Results EKG Comparison: No prior EKG EKG Findings: sinus tachycardia at rate 106 Core Measures Anticipated LOS I expect patient to be DC'd or transferred within 96 hours.: Yes Issues Hospital Issues and Management Plan: Acute hypoxic respiratory failure secondary to CHF exacerbation.Supplemental oxygen, aggressive diuresis and monitoring of electrolytes and renal function DVT/VTE - Prophylaxis VTE/DVT Device ordered at admit?: Yes VTE/DVT Prophylaxis med ordered at admit?: No Not Ordered - Medical Reason: Not indicated (Eliquis)
[2025-03-27] MEDS ORDERED: oxyCODONE 5 MG TABLET PO PRN (19:57)
[2025-03-27] MEDS ORDERED: SODIUM CHLORIDE FLUSH 0.9% 10 ML SYRINGE IVP PRN (19:57)
[2025-03-27] MEDS ORDERED: ONDANSETRON ODT 4 MG TABLET TL PRN (19:57)
[2025-03-27] MEDS ORDERED: ACETAMINOPHEN 325 MG TABLET PO PRN (19:57)
[2025-03-27] MEDS: APIXABAN 5 MG TABLET PO SCH (20:42)
[2025-03-27] MEDS: fentaNYL 25 MCG PATCH TOP SCH (20:42)
[2025-03-28] MEDS: FUROSEMIDE 40 MG/4 ML VIAL IVP ONE (00:26)
[2025-03-28] MEDS: SODIUM CHLORIDE FLUSH 0.9% 10 ML SYRINGE IVP SCH (00:26)
[2025-03-28 06:10] LABS: HCT - HEMATOCRIT 38.1 % (42.0-52.0); HGB - HEMOGLOBIN 12.1 g/dL (14.0-18.0); MEAN PLATELET VOLUME 9.8 fL (7.4-11.4); NRBC ABSOLUTE COUNT (AUTO) 0.00 x10^3/uL; NUCLEATED RED BLOOD CELLS AUTO 0.0 /100WBC; PLT - PLATELET COUNT 175 10^3/uL (130-450); RED CELL DISTRIBUTION WIDTH 14.8 % (12.0-15.0)
[2025-03-28 06:28] LABS: BUN - BLOOD UREA NITROGEN 24.0 mg/dL (6-20); CARBON DIOXIDE - CO2 38.0 mmol/L (21-32); CREATININE 1.0 mg/dL (0.6-1.3); GFR - MDRD 72.0 (>89)
[2025-03-28] MEDS: FUROSEMIDE 40 MG/4 ML VIAL IVP SCH (08:21)
[2025-03-28 12:09] LABS: BUN - BLOOD UREA NITROGEN 23.0 mg/dL (6-20); CARBON DIOXIDE - CO2 36.0 mmol/L (21-32); CREATININE 1.0 mg/dL (0.6-1.3); GFR - MDRD 72.0 (>89)
--- NOTE | 2025-03-28 13:07 | Discharge Summary ---
"Discharge Summary Admit Date: 03/27/25 Discharge Date: 03/28/25 Discharging Provider: Rosa Maria Guerrero PA-C Primary Care Provider: MD Isaias Code Status: Attempt Resuscitation DIAGNOSES Discharge Diagnoses with Status of Each Condition: acute hypoxic respiratory failure, resolved CHF exacerbation, resolved Multiple pulm myeloma, chronic History of PE, chronically anticoagulated hypertension, chronic Chronic pain syndrome. HPI History of Present Illness: 75M with hx MM (currently not on tx), DVT, COPD and CHF. He takes 60mg po lasix daily at home. He has been having increasing dyspnea on exertion for the last week or so. he has not missed any doses of his lasix. He is [facility], goes to the [facility] in [place]. He has a history of PE, and is on chronic Eliquis. Does not note any PND, but sleeps in a bed with the head elevated, so does not lay flat. He has noticed very slight swelling of his legs. Has been on home oxygen in the past, he is not clear why, but has not needed that for some time, and returned the equipment. He has chronic pain, back pain. he is on fentanyl patch for this He notes back pain when he stands after sitting for a period of time, not always. denies radiation of the pain to his legs. no longer drives due to chronic pain meds. does use a walking stick when he ambulates. He live at home with his , who he met in 1967. he is a [place] vet. They live with their son, his , and 3 grandchildren, so lots of support at home. He is a [employer], and as such does not want any blood products, and carries a medical POA, designating first his Estella, and then his daughter Rema as his surrogate decision makers. His POA states that he wants his life prolonged by all medically effective means. In other words, he is FULL CODE. CONSULTS | PROCEDURES Procedures: CTA of the chest: No PE. Bilateral pleural effusions with superimposed opacities possibly representing atelectasis versus pneumonia. Recommend follow- up imaging after resolution of effusions to document absence of underlying mass per or for potential malignant etiology. Erosive appearance of the right lateral seventh rib. This is new compared to 2020 this appearance raises the concern for malignancy. Chest x-ray: Moderate pleural effusions with bibasilar atelectasis. Expansile right seventh rib lesion concerning for malignancy. Stable mottled appearance of the right scapula compared with 2020, likely benign. HOSPITAL COURSE Hospital Course: Presents with acute hypoxic respiratory failure. He has been compliant with his home medications. He was aggressively diuresed overnight and felt much improved with resolution of his dyspnea on exertion and hypoxia by the morning. He had no decline in his renal function as a result of this aggressive diuresis. He was discharged home in stable condition in the care of his . I have increased his Lasix to 80 mg a day from 60 mg a day and recommended close follow-up with his primary care provider. ALLERGIES Allergies Allergy/AdvReac Type Severity Reaction Status Date / Time Sulfa (Sulfonamide Allergy Severe Unknown Verified 03/27/25 15:14 Antibiotics) MEDICATIONS Ambulatory Orders Medication Instructions Recorded Confirmed multivitamin with folic acid 400 1 ea PO DAILY 9 03/27/25 mcg tablet (Thera) trazodone 100 mg tablet 100 mg PO QPM 07/26/1903/27 apixaban 5 mg tablet (Eliquis) 5 mg PO BID 06/18/24 diltiazem HCl 180 mg 180 mg PO QAM 06/18/2403/27 capsule,extended release 24 hr fentanyl 25 mcg/hr transdermal 1 patch transdermal Q72 H 06/18/24 03/27/25 patch furosemide 80 mg tablet (Lasix) 80 mg PO DAILY #30 tab s 03/28/25 PHYSICAL EXAM AT DISCHARGE Vital Signs: Vital Signs x48h Temp Pulse Resp BP BP Pulse Ox O2 Flow Rate 03/28/25 07:38 36.4 C L 94 20 123/94 H 97 3 03/28/25 05:47 36.4 C L 90 16 114/81 96 3 General Appearance: positive No acute distress and Alert Eyes Bilateral: positive Conjunctivae nml ENT: positive ENT inspection nml Neck: positive Nml inspection Respiratory: positive Chest non-tender, No respiratory distress and Rales (Bibasilar, occasional) Cardiovascular: positive Regular rate & rhythm Abdomen: positive Non-tender Back: positive Nml inspection Skin: positive Color nml and Other (Pretibial chronic venous stasis skin changes which are mild hyperpigmentation) Extremities: positive Non-tender and No pedal edema Neurologic/Psychiatric: positive Oriented x3 and Mood/affect nml LABS 03/28/25 05:45 03/28/25 11:49 FOLLOW UP Follow Up: PCP, Ashley Castillo at the [facility] in [place] TIME SPENT Time Spent in Discharge (Minutes): 45 Discharge Plan Discharge Patient Disposition: Home, Self Care Condition: Stable Prescriptions: New furosemide [Lasix] 80 mg tablet 80 mg PO DAILY Qty: 30 2RF Continued trazodone 100 MG tablet 100 mg PO QPM multivitamin with folic acid [Thera] 1 TAB tablet 1 ea PO DAILY diltiazem HCl 180 mg capsule,extended release 24hr 180 mg PO QAM Eliquis 5 mg tablet 5 mg PO BID fentanyl 25 mcg/hr patch 72 hour 1 patch transdermal Q72H Discontinued furosemide 20 mg tablet 60 mg PO DAILY Diet: Cardiac Interventions: Discharge Last Done: 03/28/25 14:24 Discharge Checklist - Nursing Last Done: 03/28/25 14:24 Discharge Vital Signs (30 Minutes) Last Done: 03/28/25 14:05 Health Concerns: you came into the hospital with one week of progressive shortness of breath. you were not getting enough oxygen. We put you on oxygen, and gave you IV lasix several times. you were able to get the extra fluid off your lungs, and now you are breathing much better. your oxygen saturation is 92% when you walk in the halls, we need it to be above 88-90%. you do have some COPD, but I do not think that this was the cause of your shortness of breath. While you have been here, we have kept an eye on your electrolytes and kidney function. all that looks great on discharge. I would recommend that you see your PCP in the next 7-10 days. I need her to do several things *check your electrolytes and kidneys, *make sure you get repeat CT chest in about 3 months to look at the right rib lesion and make sure that there is no other problem that was hiding in the fluid we saw in your lungs I am increasing your lasix to 80mg daily. I have sent the medicine into the pharmcy, but if you want, just take 4 of your 20mg pills. Don't miss your lasix!! I know you are a good medicine taker, and you are doing your best. you did not do anything wrong to cause your problem. Make sure to avoid excess salt in your diet, and keep your fluid intake to 1500ml daily or less. This is about 2 of the big cups that we have here in the hospital. Care Plan Goals: lasix increased to 80mg daily PCP followup and oncology followup: for blood work (electrolytes and kidney) and repeat CT chest in 3 months. you also need to get an updated echocardiogram (ultrasound of your heart) PCP can order. Print Language: Slovak Patient Instructions: Heart Failure Flare Up Signs, Heart Failure Make Changes Diet, Heart Failure Dc Follow-up Care: ASHLEY CASTILLO MD [Primary Care Provider, Internal Medicine] Vitals documented within 30 minutes of discharge?: Yes"
[2025-03-28 14:29] VITALS: BP 102/67; TEMP 97.7; O2SAT 94
== END 2025-03-28 14:20 | disposition home or self-care (01) ==
LOC: ED 15:05 → MS2 15:05
PROVIDERS: ADMIT Physician Assistant Medical; ATTEND Physician Assistant Medical
DX: Z86.711 Personal history of pulmonary embolism; Z91.85 Personal history of military service; Z87.891 Personal history of nicotine dependence; Z85.79 Personal history of other malignant neoplasms of lymphoid, hematopoietic and related tissues; R06.00 Dyspnea, unspecified; Z86.718 Personal history of other venous thrombosis and embolism; Z68.36 Body mass index [BMI] 36.0-36.9, adult; J90 Pleural effusion, not elsewhere classified; J96.01 Acute respiratory failure with hypoxia; Z79.899 Other long term (current) drug therapy; Z79.01 Long term (current) use of anticoagulants; M89.9 Disorder of bone, unspecified; I50.9 Heart failure, unspecified; J44.89 Other specified chronic obstructive pulmonary disease; R93.7 Abnormal findings on diagnostic imaging of other parts of musculoskeletal system; M54.9 Dorsalgia, unspecified; E66.9 Obesity, unspecified; G89.4 Chronic pain syndrome; Z91.82 Personal history of military deployment; Z66 Do not resuscitate; Z79.891 Long term (current) use of opiate analgesic; J98.11 Atelectasis; I11.0 Hypertensive heart disease with heart failure